=== PATIENT | female | born 1995 | race Caucasian/White ===

== ENCOUNTER 2019-04-23 23:32 | Emergency (ER) | payer OTHER, SELFPAY ==
--- NOTE | ~2019-04-23 | XR_ITS ---
EXAMINATION: XR hand RT min 3V DATE: 04/24/2019 00:05 INDICATION: Posttraumatic right hand pain TECHNIQUE: Posteroanterior, oblique and lateral views of the right hand were obtained. COMPARISON: None. FINDINGS: There is approximately 50 degree palmar/radial angulation of a nondisplaced extra-articular fracture at the neck of the right fifth metacarpal. No other fractures identified. Alignment and joint spaces are normal throughout the remainder of the right hand. Mild soft tissue swelling about the ulnar side of the hand. IMPRESSION: 1. Palmar/radial angulation of a nondisplaced extra articular fracture at the neck of the right fifth metacarpal boxer's fracture . Reviewed, dictated and finalized at location A. UTATIONAL PHYSICIST IMPRESSION: 1. Palmar/radial angulation of a nondisplaced extra articular fracture at the n joanne of the right fifth metacarpal boxer's fracture .
[2019-04-23 23:33] VITALS: BP 117/48; PULSE 94; RESP 16; TEMP 36.5; O2SAT 94
--- NOTE | 2019-04-23 23:45 | ED.UPPEXIN ---
HPI - Extremity Injury (Upper) General Chief Complaint: Extremity Injury, Upper Stated Complaint: right wrist injury Time Seen by Provider: 04/23/19 23:43 Source: patient and RN notes reviewed Mode of arrival: ambulatory Limitations: no limitations History of Present Illness HPI narrative: Pt is a 23 y/o female who presents to the ED with c/o rt hand injury happening 3 days ago. She notes that she became upset and punched a wall with her rt hand 3 days ago. Pt states that she has had pain in her rt hand radiating into her rt wrist ever since. She also reports bruising over the lateral aspect of her rt hand and tingling in her rt 4th and 5th fingers. MD complaint: injury to: right and hand Onset (ago): day(s) (3) Other injuries: none Handedness: right Place: home Context: direct blow Associated symptoms: other (tingling in rt 4th and 5th fingers; bruising on lateral aspect of rt hand) Related Data Allergies Allergy/AdvReac Type Severity Reaction Status Date / Time acetaminophen Allergy Unknown Nausea Verified 04/23/19 23:40 hydrocodone Allergy Unknown Nausea Verified 04/23/19 23:40 metoclopramide Allergy Unknown Nausea and Verified 04/23/19 23:40 Vomiting nortriptyline Allergy Unknown Nausea and Verified 04/23/19 23:40 Vomiting Penicillins Allergy Unknown Nausea Verified 04/23/19 23:40 Sulfa (Sulfonamide Allergy Unknown Nausea and Verified 04/23/19 23:40 Antibiotics) Vomiting Review of Systems Review of Systems: All systems reviewed & are unremarkable except as noted in HPI and below Musculoskeletal: Musculoskeletal: Reports other (rt hand pain radiating into rt wrist) Integumentary/Breasts: Skin/Breast: Reports unusual bruising (bruising on lateral aspect of rt hand) Neurologic: Reports tingling (rt 4th and 5th fingers) PMFSH Past Medical History Medical History Bipolar disorder Immunodeficiency disorder, selective immunoglobulin Surgical History Surgical History Hx of cholecystectomy Social History Social History Smoking status: Never smoker Gender identity (if verbalized by the patient): Female Exam Narrative: Exam Narrative: GENERAL: Well-appearing, well-nourished, and in no acute distress. HEAD: Normocephalic, atraumatic. EXTREMITIES: Swelling and bruising of the right hand most prominently over the ulnar aspect. The fifth metacarpal at the MCP is area of most tenderness, but there is additional tenderness moving into the forearm and at the wrist. Range of motion is limited at the wrist due to pain. Patient is unable to extend or flex digits #5 and 4 due to pain. Digits #5 and 4 also have decreased sharp touch sensation when using an 18-gauge needle. SKIN: Warm, dry, no rash. NEURO: Alert and oriented x3. PSYCH: Normal mood and affect. Course Course Emergency Course: Discussed neuro deficits and injury with Dr. Ricci. Benjamin with follow-up. Patient placed in OCL splint by transportation planning technician. Discharge home. Able to take Percocet without issue. Vital Signs Vital signs: Vital Signs Temperature 97.7 F 04/23/19 23:33 Pulse Rate 94 04/23/19 23:33 Respiratory Rate 16 04/23/19 23:33 Blood Pressure 117/48 L 04/23/19 23:33 Pulse Oximetry 94 04/23/19 23:33 Temperature 97.7 F 04/23/19 23:33 Pulse Rate 94 04/23/19 23:33 Respiratory Rate 16 04/23/19 23:33 Blood Pressure 117/48 L 04/23/19 23:33 Pulse Oximetry 94 04/23/19 23:33 Procedures Orthopedic Splinting/Casting Injury #1: Splinting/Casting Date: 04/24/19 Splinting/Casting Time: 02:10 Side: right Upper Extremity Injury Location: hand Splint: customized in ED OCL: ulnar gutter Pre-Procedure Neuro Vascular Exam: abnormal (decreased sharp touch in digits 4/5) Post-Procedure Neuro Vascular Exam: abnormal (no change) MDM - Ex
[2019-04-24 03:05] VITALS: BP 128/72; PULSE 88; RESP 20; O2SAT 100
== END 2019-04-24 03:07 | disposition home or self-care (01) ==
PROVIDERS: Emergency Provider Emergency Medicine; PCP Nurse Practitioner
DX: S62.366A Nondisplaced fracture of neck of fifth metacarpal bone, right hand, initial encounter for closed fracture (principal); S60.221A Contusion of right hand, initial encounter; W22.09XA Striking against other stationary object, initial encounter
CPT/HCPCS: 29125; 73130; 99284; A4565; A9270

== ENCOUNTER 2019-08-09 15:05 | Emergency (ER) | payer OTHER, SELFPAY ==
--- NOTE | ~2019-08-09 | CT_ITS ---
EXAMINATION: CT abdomen pelvis w con EXAM DATE: 08/09/2019 16:30 INDICATION: Abdominal pain, nausea vomiting diarrhea. Symptoms for days. TECHNIQUE: Spiral CT of the abdomen and pelvis was performed following intravenous injection of 100 m L Omnipaque 350. Axial, coronal and sagittal images were reviewed. The dose-length product (DLP) fo r this examination was 278.56 mGy-cm. The exposure was tailored according to patient size (auto mA e xposure control), and iterative reconstruction (ASIR) was used as additional dose reduction technique . Comparison is made to prior examination from 12/02/2018. FINDINGS: The liver, spleen, adrenal glands and pancreas are unremarkable. There are cholecystectomy clips. Portal and splenic veins are patent. Kidneys enhance symmetrically. There is no hydronephr osis. The uterus is anteverted and morphologically normal. The bladder is collapsed at time of im aging limiting evaluation. Increased number of within normal size pericecal lymph nodes likely react cullen. Probable identification of a normal appendix. No pericecal inflammation. The stomach and small car l are unremarkable. There is colonic fluid. Mildly enhancing colonic mucosa, findings could indicate mild enterocolitis. No free intraperitoneal gas. The heart is normal in size. There are no selene cardial or pleural effusions. Several small basilar granulomas. The bones are unremarkable. IMPRESSION: Findings consistent with enterocolitis. Reviewed, dictated and finalized at location A.
[2019-08-09 15:10] VITALS: BP 122/77; PULSE 105; RESP 19; TEMP 37.3; O2SAT 96
[2019-08-09 15:22] LABS: Basophils Absolute Auto 0.1 K/mm3 (0.0-0.1); Basophils Percent Auto 0.9 % (0.2-1.2); Eosinophils Absolute Auto 0.1 K/mm3 (0-0.3); Eosinophils Percent Auto 1.2 % (0-4.4); Hematocrit 40.1 % (37.0-47.0); Hemoglobin 13.9 g/dL (12.0-15.0); Immature Granulocyte Absolute 0.02 K/mm3 (0.00-0.031); Immature Granulocyte Percent A 0.3 % (0-0.5); Lymphocytes Absolute Auto 1.35 K/mm3 (0.9-3.2); Lymphocytes Percent Auto 23.2 % (18.3-44.2); Mean Corpuscular HGB Conc 34.7 g/dl (32-36); Mean Corpuscular Hemoglobin 29.9 pg (26-34); Mean Corpuscular Volume 86.2 fl (80-100); Mean Platelet Volume 10.4 fl (7.4-10.4); Monocytes Absolute Auto 0.9 K/mm3 (0.1-0.6); Monocytes Percent Auto 15.7 % (2.6-8.5); Neutrophils Absolute Auto 3.4 K/mm3 (1.3-6.7); Neutrophils Percent Auto 58.7 % (45.5-73.1); Platelet Count Result 228 k/mm3 (150-375); Red Blood Count 4.65 M/mm3 (4.2-5.4); Red Cell Distribution Width 13.7 % (11.5-14.5); White Blood Count 5.8 K/mm3 (4.5-10.0)
[2019-08-09 15:36] LABS: Alanine Aminotransferase 19 U/L (4-35); Albumin Level 4.2 g/dL (3.5-5.1); Alkaline Phosphatase 98 U/L (38-126); Aspartate Amino Transferase 31 U/L (14-36); Bilirubin,Total < 0.1 mg/dL (0.2-1.3); Blood Urea Nitrogen 9 mg/dL (7-17); Calcium 8.9 mg/dL (8.4-10.2); Carbon Dioxide 24 mmol/L (22-30); Chloride 103 mmol/L (98-107); Estimated CRCL calculation 111 ml/min; Estimated Glomerular Filt Rate > 60; Glucose 103 mg/dL (65-105); Lipase 19 U/L (23-300); Potassium 3.6 mmol/L (3.4-5.0); Sodium 138 mmol/L (137-145)
[2019-08-09] MEDS: PROCHLORPERAZINE EDISYLATE 10 MG/2 ML VIAL IV PUSH (15:52)
[2019-08-09] MEDS: SODIUM CHLORIDE 0.9% IV 1,000 ML 999 ML IV CONT (15:52)
[2019-08-09 16:06] LABS: Add Urine Microscopic? YES; Appearance Urine Cloudy (Clear); Bacteria Urine Trace /hpf; Bilirubin Urine 1+ (Negative); Blood Urine Negative (Negative); Color Urine Yellow (Yellow); Glucose Urine UA Negative (Negative); Ketones Urine Negative (Negative); Leukocyte Esterase Ur Trace LEU/UL (Negative); Mucus Urine Heavy /lpf; Nitrate Urine Negative (Negative); Protein Urine 2+ mg/dL (Negative); RBC Urine 0-2 /hpf (0-2); Specific Grav Ur 1.029 (1.001-1.035); Squamous Epithelial Cell Urine Many /hpf (Few); Urobilinogen Urine Negative mg/dL (<2.0)
[2019-08-09 16:55] VITALS: BP 145/89; BP 148/93; PULSE 105; PULSE 107
[2019-08-09 16:56] VITALS: BP 140/89; PULSE 104
--- NOTE | 2019-08-09 17:28 | ED.NAVMDI ---
HPI - Nausea/Vomiting/Diarrhea General Chief complaint: Nausea/Vomiting/Diarrhea <WANG Cabrera Last Filed: 08/09/19 20:06> Stated complaint: N/V/D [id number] <WANG Cabrera Last Filed: 08/09/19 20:06> Time Seen by Provider: 08/09/19 15:17 <WANG Cabrera Last Filed: 08/09/19 20:06> Source: patient <WANG Cabrera Last Filed: 08/09/19 20:06> Mode of arrival: ambulatory <WNAG Cabrera Last Filed: 08/09/19 20:06> Limitations: no limitations <WANG Cabrera Last Filed: 08/09/19 20:06> History of Present Illness HPI Narrative: This is a 24 year old female that presents to the ER for abdominal pain, nausea and vomiting x 12 days. Reports history of cyclic vomiting. Reports she recently had to have a stent placed by a GI doctor at [facility]. Reports she was doing okay after that and then 12 days ago symptoms have returned. Reports she has not been able to keep anything down. Also reports watery diarrhea. Reports a history of C. difficile colitis. Reports she takes a daily antibiotic due to immune deficiency. Also reports dysuria. Denies fever. <WANG Cabrera Last Filed: 08/09/19 20:06> Related Data Home medications: Home Medications Medication Instructions Recorded Confirmed fluoxetine 40 mg PO DAILY 08/12/19 08/12/19 lorazepam [Ativan] 1 mg PO TID PRN 08/12/19 08/12/19 pantoprazole 40 mg PO DAILY 08/12/19 08/12/19 quetiapine 200 mg PO BID 08/12/19 08/12/19 quetiapine 400 mg PO HS 08/12/19 08/12/19 <WANG Cabrera Last Filed: 08/09/19 20:06> Allergies/Adverse reactions: Allergies Allergy/AdvReac Type Severity Reaction Status Date / Time acetaminophen Allergy Unknown Nausea Verified 08/12/19 17:54 hydrocodone Allergy Unknown Nausea Verified 08/12/19 17:54 metoclopramide Allergy Unknown Nausea and Verified 08/12/19 17:54 Vomiting nortriptyline Allergy Unknown Nausea and Verified 08/12/19 17:54 Vomiting Penicillins Allergy Unknown Nausea Verified 08/12/19 17:54 Sulfa (Sulfonamide Allergy Unknown Nausea and Verified 08/12/19 17:54 Antibiotics) Vomiting haloperidol [From Haldol] Allergy Swelling Verified 08/12/19 20:54 of Lip/Tongue/Throat levofloxacin [From Levaquin] Allergy Rash Verified 08/13/19 20:30 morphine AdvReac Nausea and Verified 08/12/19 21:02 Vomiting <Mary Jane Roblero PA-C - Last Filed: 08/09/19 20:06> Review of Systems Review of Systems: Narrative: CONSTITUTIONAL: Denies fever GASTROINTESTINAL: Reports abdominal pain, nausea, vomiting, and diarrhea. GENITOURINARY: Reports dysuria. Denies hematuria. <Mary Jane Roblero PA-C - Last Filed: 08/09/19 20:06> All systems reviewed & are unremarkable except as noted in HPI and below <Mary Jane Roblero PA-C - Last Filed: 08/09/19 20:06> PMFSH Social History Social History: Social History Smoking status: Former smoker Alcohol intake: never Substance use: current Substance use type: marijuana Gender identity (if verbalized by the patient): Female Spiritual care concerns: No <Mary Jane Roblero PA-C - Last Filed: 08/09/19 20:06> Exam Narrative: Exam Narrative: GENERAL: Well-appearing, well-nourished, and in no acute distress. HEAD: Normocephalic, atraumatic. EYES: EOMI. CHEST: Clear to auscultation. No respiratory distress. No wheezes rales or rhonchi HEART: Regular rate and rhythm. No murmur heard. Normal peripheral pulses. ABDOMEN: Soft, nondistended, normal active bowel sounds. Mild tenderness to palpation throughout the abdomen, without guarding EXTREMITIES: Normal range of motion. No edema. SKIN: Warm, dry, no rash. NEURO: No focal deficits. Alert and oriented x3. PSYCH: Normal mood and affect <Mary Jane Roblero PA-C - Last Filed: 08/09/19 20:06> Course Consultations Consultation #1: Spoke with GI on-call Dr. Mathis
[2019-08-09] MEDS: ONDANSETRON INJ 4 MG/2 ML VIAL IV PUSH (17:52)
[2019-08-09] MEDS: MORPHINE SULFATE 2 MG/ML INJ IV PUSH (17:52)
[2019-08-09 17:55] VITALS: BP 143/84; PULSE 98; RESP 18; O2SAT 98
[2019-08-09] MEDS: HYDROMORPHONE HCL 1 MG/ML INJ 0.5 MG IV PUSH (19:25)
[2019-08-09 19:51] VITALS: BP 119/80; PULSE 87; RESP 14; TEMP 36.7; O2SAT 98
[2019-08-09 20:21] VITALS: BP 111/76; PULSE 83; RESP 20; TEMP 36.8; O2SAT 98
== END 2019-08-09 20:24 | disposition home or self-care (01) ==
PROVIDERS: Emergency Provider Emergency Medicine; PCP Nurse Practitioner
DX: R11.2 Nausea with vomiting, unspecified (principal); R19.7 Diarrhea, unspecified
CPT/HCPCS: 36415; 74177; 80053; 81001; 81025; 83690; 85025; 87045; 87046; 87324; 87427; 87493; 89055; 96361; 96374; 96375; 99284; J0780; J1170; J2270; J2405; J7030; Q9967

== ENCOUNTER 2019-08-12 17:33 | Inpatient (IN) | payer OTHER, SELFPAY ==
--- NOTE | ~2019-08-12 | CT_ITS ---
EXAMINATION: CT abdomen pelvis w con DATE: 08/12/2019 20:07 INDICATION: Colitis with 2 weeks of nausea, vomiting and diarrhea and right red blood in the stools. TECHNIQUE: Computed tomography (CT) of the abdomen and pelvis was performed with 100 mL Omnipaque-350 intravenous contrast. Automated exposure control and iterative reconstruction technique were employe d. The dose-length product was 255.74 mGy-cm. COMPARISON: 08/09/2019 FINDINGS: Visualized lung bases are clear. Heart size is normal. No pericardial or pleural effusion. Cholecyste ctomy clips at the gallbladder fossa. Liver, spleen, pancreas, bilateral adrenal glands and kidneys a re normal. Interval progression of now extensive mild to moderate colonic wall thickening most promin ent in the ascending and transverse colon consistent with colitis. There is also wall thickening at t he distal ileum. Appendix is normal. No dilated bowel to suggest obstruction. Bladder, anteverted [place] and bilateral adnexa are normal. Small amount of either reactive or physiologic free fluid in the cul-de-sac. No abscess or free intraperitoneal gas. No pathologically enlarged abdominal or pelvic l ymphadenopathy. Bones are unremarkable. IMPRESSION: 1. Worsening colitis and terminal ileitis which could be infectious, inflammatory or less likely isch emic in etiology. Reviewed, dictated and finalized at location A. IMPRESSION: 1. Worsening colitis and terminal ileitis which could be infectious, inflammato ry or less likely ischemic in etiology.
[2019-08-12 17:51] VITALS: BP 121/89; PULSE 122; RESP 25; TEMP 37.9; O2SAT 98
[2019-08-12 18:14] LABS: Basophils Absolute Auto 0.1 K/mm3 (0.0-0.1); Basophils Percent Auto 0.7 % (0.2-1.2); Eosinophils Absolute Auto 0.1 K/mm3 (0-0.3); Eosinophils Percent Auto 0.9 % (0-4.4); Hemoglobin 13.9 g/dL (12.0-15.0); Immature Granulocyte Percent A 0.7 % (0-0.5); Lymphocytes Absolute Auto 2.31 K/mm3 (0.9-3.2); Lymphocytes Percent Auto 15.6 % (18.3-44.2); Mean Corpuscular HGB Conc 33.9 g/dl (32-36); Mean Corpuscular Hemoglobin 29.6 pg (26-34); Mean Corpuscular Volume 87.4 fl (80-100); Mean Platelet Volume 10.3 fl (7.4-10.4); Monocytes Absolute Auto 1.6 K/mm3 (0.1-0.6); Monocytes Percent Auto 10.5 % (2.6-8.5); Neutrophils Absolute Auto 10.6 K/mm3 (1.3-6.7); Neutrophils Percent Auto 71.6 % (45.5-73.1); Platelet Count Result 321 k/mm3 (150-375); Red Blood Count 4.69 M/mm3 (4.2-5.4); Red Cell Distribution Width 13.8 % (11.5-14.5); White Blood Count 14.8 K/mm3 (4.5-10.0)
[2019-08-12 18:28] LABS: Alanine Aminotransferase 16 U/L (4-35); Albumin Level 3.8 g/dL (3.5-5.1); Alkaline Phosphatase 96 U/L (38-126); Aspartate Amino Transferase 22 U/L (14-36); Bilirubin,Total < 0.1 mg/dL (0.2-1.3); Blood Urea Nitrogen 5 mg/dL (7-17); Calcium 8.5 mg/dL (8.4-10.2); Carbon Dioxide 22 mmol/L (22-30); Chloride 105 mmol/L (98-107); Estimated CRCL calculation 108 ml/min; Estimated Glomerular Filt Rate > 60; Glucose 100 mg/dL (65-105); Lipase 24 U/L (23-300); Potassium 3.7 mmol/L (3.4-5.0); Sodium 134 mmol/L (137-145)
--- NOTE | 2019-08-12 19:38 | ED.ABDPAIN ---
HPI - Abdominal Pain General Chief Complaint: Abdominal Pain <Bruno Dinero MD - Last Filed: 08/12/19 19:49> Stated Complaint: bloody diarrhea/ abd pain <Bruno Dinero MD - Last Filed: 08/12/19 19:49> Time Seen by Provider: 08/12/19 18:52 <Bruno Dinero MD - Last Filed: 08/12/19 19:49> Source: patient and family <Bruno Dinero MD - Last Filed: 08/12/19 19:49> Mode of arrival: ambulatory <Bruno Dinero MD - Last Filed: 08/12/19 19:49> Limitations: no limitations <Bruno Dinero MD - Last Filed: 08/12/19 19:49> History of Present Illness HPI narrative: 24-year-old with a history of bipolar disorder, anxiety, selective immune deficiency disorder here with complaints of nausea, vomiting and diarrhea for the last 15 days. Patient states that she was seen here 2 days ago had blood work and CAT scan done which showed enteritis. Patient states that she is unable to keep any fluids down. She also complains of lower abdominal pain and cramping. She states that she had occasional blood in her stool. No previous history of C. difficile. <Bruno Dinero MD - Last Filed: 08/12/19 19:49> MD elicited complaint: abdominal pain <Bruno Dinero MD - Last Filed: 08/12/19 19:49> Onset (ago): day(s) (15) <Bruno Dinero MD - Last Filed: 08/12/19 19:49> Pain Consistency: constant <Bruno Dinero MD - Last Filed: 08/12/19 19:49> Location: RLQ <MD Evan Velez Last Filed: 08/12/19 19:49> Severity: moderate <MD Evan Velez Last Filed: 08/12/19 19:49> Quality: cramping <MD Evan Velez Last Filed: 08/12/19 19:49> Radiation: none <MD Evan Velez Last Filed: 08/12/19 19:49> Exacerbating factors: eating and bowel movement <Bruno Dinero MD - Last Filed: 08/12/19 19:49> Relieving factors: nothing <Bruno Dinero MD - Last Filed: 08/12/19 19:49> Related Data Home Medications: Home Medications Medication Instructions Recorded Confirmed fluoxetine 40 mg PO DAILY 08/12/19 08/12/19 lorazepam [Ativan] 1 mg PO TID PRN 08/12/19 08/12/19 pantoprazole 40 mg PO DAILY 08/12/19 08/12/19 quetiapine 200 mg PO BID 08/12/19 08/12/19 quetiapine 400 mg PO HS 08/12/19 08/12/19 <Bruno Dinero MD - Last Filed: 08/12/19 19:49> Allergies/Adverse Reactions: Allergies Allergy/AdvReac Type Severity Reaction Status Date / Time acetaminophen Allergy Unknown Nausea Verified 08/12/19 17:54 hydrocodone Allergy Unknown Nausea Verified 08/12/19 17:54 metoclopramide Allergy Unknown Nausea and Verified 08/12/19 17:54 Vomiting nortriptyline Allergy Unknown Nausea and Verified 08/12/19 17:54 Vomiting Penicillins Allergy Unknown Nausea Verified 08/12/19 17:54 Sulfa (Sulfonamide Allergy Unknown Nausea and Verified 08/12/19 17:54 Antibiotics) Vomiting haloperidol [From Haldol] Allergy Swelling Verified 08/12/19 20:54 of Lip/Tongue/Throat morphine AdvReac Nausea and Verified 08/12/19 21:02 Vomiting <Bruno Dinero MD - Last Filed: 08/12/19 19:49> Review of Systems Review of Systems: All systems reviewed & are unremarkable except as noted in HPI and below <Bruno Dinero MD - Last Filed: 08/12/19 19:49> Constitutional: Constitutional: Reports no additional constitutional complaints <Bruno Dinero MD - Last Filed: 08/12/19 19:49> Eyes: Eyes: Reports no additional eye complaints <Bruno Dinero MD - Last Filed: 08/12/19 19:49> ENT: Reports system reviewed and no additional complaints, except as documented <Bruno Dinero MD - Last Filed: 08/12/19 19:49> Cardiovascular: Cardiovascular: Reports no additional cardiovascular complaints <Bruno Dinero MD - Last Filed: 08/12/19 19:49> Respiratory: Respiratory: Reports no additional respiratory complaints <Bruno Dinero MD - Last Filed: 08/12/19 19:49> Gastrointestinal: Gastrointestinal: Reports as per HPI, Reports abdominal pain,
[2019-08-12] MEDS: SODIUM CHLORIDE 0.9% IV 1,000 ML 150 ML IV CONT (19:42)
[2019-08-12] MEDS: MORPHINE SULFATE 4 MG/ML INJ IV PUSH (19:43)
--- NOTE | 2019-08-12 20:27 | ED.ABDPAIN ---
HPI - Abdominal Pain General Chief Complaint: Abdominal Pain Stated Complaint: bloody diarrhea/ abd pain Time Seen by Provider: 08/12/19 18:52 Source: patient and family Mode of arrival: ambulatory Limitations: no limitations History of Present Illness MD elicited complaint: abdominal pain Onset (ago): day(s) (15) Pain Consistency: constant Location: RLQ Severity: moderate Quality: cramping Radiation: none Exacerbating factors: eating and bowel movement Relieving factors: nothing Related Data Allergies Allergy/AdvReac Type Severity Reaction Status Date / Time acetaminophen Allergy Unknown Nausea Verified 08/12/19 17:54 hydrocodone Allergy Unknown Nausea Verified 08/12/19 17:54 metoclopramide Allergy Unknown Nausea and Verified 08/12/19 17:54 Vomiting nortriptyline Allergy Unknown Nausea and Verified 08/12/19 17:54 Vomiting Penicillins Allergy Unknown Nausea Verified 08/12/19 17:54 Sulfa (Sulfonamide Allergy Unknown Nausea and Verified 08/12/19 17:54 Antibiotics) Vomiting haloperidol [From Haldol] Allergy Swelling Verified 08/12/19 20:54 of Lip/Tongue/Throat morphine AdvReac Nausea and Verified 08/12/19 21:02 Vomiting PMFSH Past Medical History Medical History Bipolar disorder Immunodeficiency disorder, selective immunoglobulin Social History Social History Smoking status: Never smoker Gender identity (if verbalized by the patient): Female Course Reevaluation(s) Reevaluation #1: Assumed care at 8:30, patient is crying with the pain. She denies history of ulcerative colitis or Crohn's. She says morphine does not work for her. We told her I ordered some fentanyl. She is already gotten her Levaquin. I told her we were going to admit her to the hospital and get a GI specialist to see her. She agrees. : Date: 08/12/19 Time: 20:33 Consultations Consultation #1: Called for GI consult from Dr. Fierro. He recommends Solu-Medrol 40 mg every 8 hours, and antibiotic, and pain medication. He will consult. Date: 08/12/19 Time: 20:34 Consultation #2: Call the hospitalist Dr. Jean agrees with the observation admission for admission. Date: 08/12/19 Time: 20:34 Vital Signs Vital signs: Vital Signs Temperature 100.2 F H 08/12/19 17:51 Pulse Rate 122 H 08/12/19 17:51 Respiratory Rate 25 H 08/12/19 17:51 Blood Pressure 121/89 08/12/19 17:51 Pulse Oximetry 98 08/12/19 17:51 Temperature 98.5 F 08/12/19 20:46 Pulse Rate 108 H 08/12/19 20:46 Respiratory Rate 24 H 08/12/19 20:46 Blood Pressure 140/85 08/12/19 20:46 Pulse Oximetry 98 08/12/19 20:46 MDM - Abdominal Pain Medical Records Attestation: I reviewed the patient's medical records. Lab Data Attestation: I reviewed the patient's lab results. Result diagrams: 08/12/19 18:07 08/12/19 18:07 Labs: Lab Results 08/12/19 08/12/19 08/12/19 Range/Units 18:07 18:07 20:38 WBC 14.8 H (4.5-10.0) K/mm3 RBC 4.69 (4.2-5.4) M/mm3 Hgb 13.9 (12.0-15.0) g/dL Hct 41.0 (37.0-47.0) % MCV 87.4 (80-100) fl MCH 29.6 (26-34) pg MCHC 33.9 (32-36) g/dl RDW 13.8 (11.5-14.5) % Plt Count 321 (150-375) k/mm3 MPV 10.3 (7.4-10.4) fl Immature Gran % (Auto) 0.7 H (0-0.5) % Neut % (Auto) 71.6 (45.5-73.1) % Lymph % (Auto) 15.6 L (18.3-44.2) % [place] % (Auto) 10.5 H (2.6-8.5) % Eos % (Auto) 0.9 (0-4.4) % Baso % (Auto) 0.7 (0.2-1.2) % Lymph # (Auto) 2.31 (0.9-3.2) K/mm3 [place] # (Auto) 1.6 H (0.1-0.6) K/mm3 Eos # (Auto) 0.1 (0-0.3) K/mm3 Baso # (Auto) 0.1 (0.0-0.1) K/mm3 Abs Immat Gran (auto) 0.10 H (0.00-0.031) K/mm3 Absolute Neuts (auto) 10.6 H (1.3-6.7) K/mm3 Absolute Nucleated RBC 0.0 (0.0-0.012) K/mm3 Nucleated RBC % 0.0 (0.0-0.2) % Sodium 134 L (137-145) mmol/L [place]
[2019-08-12] MEDS: PROMETHAZINE HCL 25 MG TABLET PO (20:38)
[2019-08-12] MEDS: methylPREDNISolone SOD SUCC 40 MG VIAL IV PUSH (20:39)
[2019-08-12 20:46] VITALS: BP 140/85; PULSE 108; RESP 24; TEMP 36.9; O2SAT 98
[2019-08-12 20:47] LABS: Add Urine Microscopic? YES; Appearance Urine Cloudy (Clear); Bacteria Urine Trace /hpf; Bilirubin Urine 1+ (Negative); Blood Urine Negative (Negative); Color Urine Yellow (Yellow); Glucose Urine UA Negative (Negative); Ketones Urine Trace mg/dL (Negative); Leukocyte Esterase Ur Negative LEU/UL (Negative); Mucus Urine Heavy /lpf; Nitrate Urine Negative (Negative); Protein Urine 1+ mg/dL (Negative); RBC Urine 0-2 /hpf (0-2); Specific Grav Ur 1.027 (1.001-1.035); Squamous Epithelial Cell Urine Many /hpf (Few); WBC Urine 0-3 /hpf
--- NOTE | 2019-08-12 21:04 | PC.NURSE ---
Patient reports itching and hives to left arm and neck after starting levaquin. Infusion stopped. EDP aware and order for Benadryl 50 mg IVP was obtained.
[2019-08-12] MEDS: SODIUM CHLORIDE 0.9% IV 1,000 ML 999 ML IV CONT (21:05)
[2019-08-12 21:25] VITALS: BP 130/84; PULSE 101; RESP 26; TEMP 36.5; O2SAT 99
[2019-08-12 22:12] VITALS: BP 137/66; PULSE 104; RESP 21; TEMP 36.9; O2SAT 98
--- NOTE | 2019-08-12 22:47 | ADMGEN ---
This patient, Regino Calvillo, was admitted to 2 Medical Room 240-01. Patient/family oriented to hospital policies and general routines including ID bracelet, bed and alarms, visiting hours, pain management, procedures, bathroom and other care routines, personal items, smoking policy, room service/diet, and visiting hours. Valuables list has been completed. Information on how to activate the Rapid Response Team has been discussed. Patient/Family are encouraged to report perceived risks to care and to ask questions if they do not understand what they are told or what they should do.
[2019-08-12 22:59] VITALS: BP 133/81; PULSE 101; RESP 22; TEMP 36.7; O2SAT 97; BMI 22.9
[2019-08-12] MEDS: DEXTROSE 5%/0.9% SOD CHL 1,000 ML 100 ML IV CONT (23:10)
[2019-08-12] MEDS: QUEtiapine FUMARATE 100 MG TABLET 400 MG PO (23:51)
[2019-08-12] MEDS: HYDROMORPHONE HCL 1 MG/ML INJ IV PUSH (23:52)
--- NOTE | 2019-08-12 23:57 | PM.IMHP ---
H&P: HPI History of Present Illness Chief complaint: colitis Narrative: This is a 24 year old female who presented to the hospital for a second visit this week secondary to diffuse lower abdominal pain and bloody diarrhea. The patient has a history of ongoing abdominal issues for the past four years and is known to follow up with various different GI specialists. She has most recently had bloody diarrhea and diffuse lower abdominal pain with associated nausea and vomiting for the past 15 days. She describes having multiple episodes >10 of bloody diarrhea every day and multiple episodes of vomiting. Her symptoms are exacerbated with oral intake. The patient does have a history of IBS and has most recently had a colonoscopy 1 year ago which only demonstrated enteritis and an enlarged colon. She is known to chronically be on Macrobid for UTIs and was last checked a few days ago in our ER for c. diff colitis which resulted negative. The patient was evaluated tonight and CT abd/pelvis demonstrated worsening colitis and terminal ileitis. GI specialist was consulted by ER provider who has instructed that the patient be started on IV steroids, antibiotics and be admitted to the hospital for further care. Review of Systems Review of Systems: All systems reviewed & are unremarkable except as noted in HPI and below PMFSH Past Medical History Medical History Abdominal pain Bipolar disorder Bloody diarrhea Depression IBS (irritable bowel syndrome) Immunodeficiency disorder, selective immunoglobulin Marijuana abuse Nausea and vomiting in adult Surgical History Surgical History Hx of cholecystectomy Family History Family History Father Acute myocardial infarction Mother Emphysema lung Chronic obstructive pulmonary disease Bipolar 1 disorder Sibling Selective immunoglobulin deficiency 2 sisters and a brother have it and all three of her children have it. Social History Social History Smoking status: Former smoker Alcohol intake: never Substance use: current Substance use type: marijuana Gender identity (if verbalized by the patient): Female Spiritual care concerns: No Meds Home Medications and Allergies Home Medications Medication Instructions Recorded Confirmed Type fluoxetine 40 mg PO DAILY 08/12/19 08/12/19 History lorazepam [Ativan] 1 mg PO TID PRN 08/12/19 08/12/19 History pantoprazole 40 mg PO DAILY 08/12/19 08/12/19 History quetiapine 200 mg PO BID 08/12/19 08/12/19 History quetiapine 400 mg PO HS 08/12/19 08/12/19 History Allergies Allergy/AdvReac Type Severity Reaction Status Date / Time acetaminophen Allergy Unknown Nausea Verified 08/12/19 17:54 hydrocodone Allergy Unknown Nausea Verified 08/12/19 17:54 metoclopramide Allergy Unknown Nausea and Verified 08/12/19 17:54 Vomiting nortriptyline Allergy Unknown Nausea and Verified 08/12/19 17:54 Vomiting Penicillins Allergy Unknown Nausea Verified 08/12/19 17:54 Sulfa (Sulfonamide Allergy Unknown Nausea and Verified 08/12/19 17:54 Antibiotics) Vomiting haloperidol [From Haldol] Allergy Swelling Verified 08/12/19 20:54 of Lip/Tongue/Throat morphine AdvReac Nausea and Verified 08/12/19 21:02 Vomiting Vital Signs Vital Signs - 24 hr 08/12/19 17:51 08/12/19 20:46 08/12/19 21:25 Temperature 37.9 C H 36.9 C 36.5 C Pulse Rate 122 H 108 H 101 H Respiratory Rate 25 H 24 H 26 H Blood Pressure 121/89 140/85 130/84 Pulse Oximetry 98 98 99 08/12/19 22:12 08/12/19 22:59 Temperature 36.9 C 36.7 C Pulse Rate 104 H 101 H Respiratory Rate 21 H 22 H Blood Pressure 137/66 133/81 Pulse Oximetry 98 97 Exam Const: General: cooperative, alert, awake, in distress moderate and ill appearing Nutriti
[2019-08-13] MEDS: HYDROMORPHONE HCL 1 MG/ML INJ IV PUSH ×7 (02:54→21:22)
[2019-08-13] MEDS: LORAZEPAM INJ 2 MG/ML VIAL 0.5 MG IV PUSH ×4 (03:37→22:38)
[2019-08-13 04:51] LABS: Basophils Percent Auto 0.1 % (0.2-1.2); Hematocrit 35.4 % (37.0-47.0); Immature Granulocyte Absolute 0.06 K/mm3 (0.00-0.031); Immature Granulocyte Percent A 0.7 % (0-0.5); Lymphocytes Absolute Auto 1.21 K/mm3 (0.9-3.2); Lymphocytes Percent Auto 14.3 % (18.3-44.2); Mean Corpuscular HGB Conc 33.9 g/dl (32-36); Mean Corpuscular Hemoglobin 29.3 pg (26-34); Mean Corpuscular Volume 86.6 fl (80-100); Mean Platelet Volume 9.9 fl (7.4-10.4); Monocytes Absolute Auto 0.4 K/mm3 (0.1-0.6); Monocytes Percent Auto 4.6 % (2.6-8.5); Neutrophils Absolute Auto 6.8 K/mm3 (1.3-6.7); Neutrophils Percent Auto 80.3 % (45.5-73.1); Platelet Count Result 276 k/mm3 (150-375); Red Blood Count 4.09 M/mm3 (4.2-5.4); Red Cell Distribution Width 13.4 % (11.5-14.5); White Blood Count 8.5 K/mm3 (4.5-10.0)
[2019-08-13 05:09] LABS: Blood Urea Nitrogen 3 mg/dL (7-17); Calcium 7.7 mg/dL (8.4-10.2); Carbon Dioxide 23 mmol/L (22-30); Chloride 108 mmol/L (98-107); Estimated CRCL calculation 162 ml/min; Estimated Glomerular Filt Rate > 60; Glucose 129 mg/dL (65-105); Magnesium 1.7 mg/dL (1.6-2.3); Potassium 3.8 mmol/L (3.4-5.0); Sodium 136 mmol/L (137-145)
[2019-08-13 06:00] VITALS: BP 123/68; PULSE 91; RESP 18; TEMP 36.8; O2SAT 99
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
[2019-08-13] MEDS: methylPREDNISolone SOD SUCC 40 MG VIAL IV PUSH ×3 (09:09→18:09)
[2019-08-13] MEDS: DEXTROSE 5%/0.9% SOD CHL 1,000 ML 100 ML IV CONT ×2 (09:09→20:16)
[2019-08-13] MEDS: QUEtiapine FUMARATE 100 MG TABLET 200 MG PO ×2 (09:10→12:04)
--- NOTE | 2019-08-13 09:22 | PC.NURSE ---
Patient has been seen by housekeeping assistant and Thao BUTT. Patient has calmed down and is now cooperatively answering questions. Received pain meds and Ativan as ordered. NPO status has been explained to her further by PA and also by housekeeping assistant. Will continue to monitor.
--- NOTE | 2019-08-13 09:32 | PM.IMPN ---
Progress Note: A&P Assessment and Plan (1) Colitis: Code(s): K52.9 - Noninfective gastroenteritis and colitis, unspecified Status: Acute Assessment and Plan: CT abd/pelvis revealed interval progression of extensive colonic wall thickening in the ascending and transverse colon as well as at the distal ileum. The patient reports that her last colonoscopy was 1 year ago. She has a hx of C. diff infections in the past. C. diff testing was negative 08/09/19. Her sx progressed despite PO metronidazole which she was prescribed 08/08. Campylobacter and salmonella/shigella are pending. E. coli 0157 was negative. GI is on board. Will continue IV levaquin and add IV flagyl. Will continue IV methylprednisolone. Will continue bowel rest with NPO status for now. Conitnue IV antiemetics and analgesics PRN. Await further GI recommendations. (2) Leukocytosis: Qualifiers: Leukocytosis type: unspecified Qualified Code(s): D72.829 - Elevated white blood cell count, unspecified Code(s): D72.829 - Elevated white blood cell count, unspecified Status: Acute Assessment and Plan: WBC was 14.8 at admission. Leukocytosis is likely to colitis. Leykocytosis has resolved today with WBC 8.5. (3) Bipolar disorder: Qualifiers: Active/Remission status: remission status unspecified Qualified Code(s): F31.9 - Bipolar disorder, unspecified Code(s): F31.9 - Bipolar disorder, unspecified Status: Chronic Assessment and Plan: Chronic. Continue seroquel. (4) Depression: Qualifiers: Depression Type: unspecified Qualified Code(s): F32.9 - Major depressive disorder, single episode, unspecified Code(s): F32.9 - Major depressive disorder, single episode, unspecified Status: Chronic Assessment and Plan: Chronic. Resume fluoxetine when appropriate. Subjective Date/time seen: 08/13/19 09:32 Interval history: Mrs. Calvillo is seen and examined at bedside in follow-up for colitis. She reports a long hx of GI issues including hx of C. diff colitis, hx of temporary self-expandable stent placement due to concern for possible pyloric stenosis, gastritis. She is established with Dr. White at [facility]. She reports a hx of IBD including Chron's and UC. She reports persistent lower abdominal pain today. She reports 3 episodes of diarrhea with hematochezia so far today. She denies vomiting including coffee ground emesis. She endorses nausea. She was upset earlier today regarding her NPO status. I provided an explanation for this and was able to provide reassurance and she has calmed down. She denies subjective fever and chills. She also describes tenesmus. Review of Systems Review of Systems: All systems reviewed & are unremarkable except as noted in HPI and below Exam Narrative: Exam Narrative: General: Well-developed, cooperative, and appears to be in no acute distress. HEENT: Normocephalic and atraumatic. Conjunctivae and lids normal. PERRL. EOMI. Ears: External ears normal without lesions or deformity. Nose: External nose normal without nasal discharge. Mouth and Throat: Mucous membranes moist. Posterior pharynx without erythema or exudate. Neck: Supple without lymphadenopathy or masses. Cardiac: Regular rate and rhythm. S1 and S2 normal. Lungs: Effort normal. Lungs are clear to auscultation bilaterally. Abdomen: Abdomen is distended but soft. Abdomen is tender in the RLQ and LLQ. No guarding or rebound. No organomegaly. Extremities: No lower extremity edema. Lashay negative. Palpable DP and PT bilaterally. Neurological: Alert. No focal neurological deficits noted. Speech is clear. Skin: Warm and dry without lesions or eruptions. Psychiatric: Judgment and insight intact. Mood labile and affect irritable. Objective Data Vital Signs Vital Signs: Vital Signs - 24 hr 08/12/19 17:51 08/12/19 20:46 08/12/19 21:25 Temperature 100.
--- NOTE | 2019-08-13 10:12 | PC.NURSE ---
Patient crying and complaining of nausea. Called Thao BUTT and left voice message requesting something for nausea. Offered patient a cold washcloth for forehead and called housekeeping and requested a fan for the room.
[2019-08-13] MEDS: ONDANSETRON INJ 4 MG/2 ML VIAL IV PUSH ×2 (10:27→18:10)
--- NOTE | 2019-08-13 10:55 | PC.NURSE ---
Patient now resting quietly with fan in room and washcloth to forehead.
[2019-08-13] MEDS: metroNIDAZOLE 500 MG/ISO 100ML 500 MG/100 ML BAG 100 MG IVPB ×2 (11:27→21:20)
--- NOTE | 2019-08-13 12:33 | WPDGICN ---
Assessment and Plan Assessment and plan (1) Colitis: Code(s): K52.9 - Noninfective gastroenteritis and colitis, unspecified Status: Acute Assessment and Plan: CT scan showed diffuse colitis and ileitis will get old records of colonoscopy and EGD (? stents placed but removed afterward) continue medical therapy with antibiotics, started on iv steroids for possible IBD (will do a colonoscopy Thursday with EGD) get inflammatory markers pending stool samples, need rule out infectious etiology including c diff (2) Bloody diarrhea: Code(s): R19.7 - Diarrhea, unspecified Status: Acute (3) Nausea and vomiting in adult: Code(s): R11.2 - Nausea with vomiting, unspecified Status: Acute Assessment and Plan: antiemetics prn, ok to have CL diet she was told that could have been related to marihuana but she is hardly using now (4) Bipolar disorder: Qualifiers: Active/Remission status: remission status unspecified Qualified Code(s): F31.9 - Bipolar disorder, unspecified Code(s): F31.9 - Bipolar disorder, unspecified Status: Chronic (5) Abdominal pain: Qualifiers: Abdominal location: unspecified location Qualified Code(s): R10.9 - Unspecified abdominal pain Code(s): R10.9 - Unspecified abdominal pain Status: Acute GI Consult Note Consult date/time: 08/13/19 12:33 Reason for consult: abdominal pain, colitis, diarrhea HPI: Regino Calvillo is a 24 year old female with history of bipolar on meds, almost 4 years of abdominal pain with nausea and vomiting for which she has been evaluated by other GI specialist. She says that had colonoscopy about 1 year ago that showed enlarged colon , earlier this year at [facility] had EGD with stent of pylorus because persistent nausea. She was told that chronic nausea probably was related to use of marihuana which she hardly is using anymore but still is sick. She has been sick since had her GB removed 2015. She is here after her second visit this week with diffuse lower abdominal pain and bloody diarrhea up o 10 times a day, nausea with vomiting that has been going on for almost 2 weeks. She also uses Macrobid for UTIs. Repeat CT abd/pelvis demonstrated worsening colitis and terminal ileitis (had CT scan just few days ago). She was started on antibiotics and also given iv solumedrol. Stool samples obtained. Still with pain. Review of Systems Constitutional: Constitutional: Reports chills, Denies headache(s) and Denies weakness Eyes: Eyes: Denies blurry vision ENT: Reports Normal hearing present, Denies headache(s) and Denies neck pain Cardiovascular: Cardiovascular: Denies chest pain and Denies dyspnea Respiratory: Respiratory: Denies dyspnea Gastrointestinal: Gastrointestinal: Reports abdominal pain, Reports hematochezia, Reports diarrhea, Reports nausea and Reports vomiting Genitourinary: Genitourinary: Denies dysuria Musculoskeletal: Musculoskeletal: Denies neck pain Integumentary/Breasts: Skin/Breast: Denies dry skin Neurologic: Reports Normal hearing present, Denies headache(s) and Denies weakness Psychiatric: Psychiatric: Reports anxiety Comments: bipolar disorder Endocrine: Endocrine: Denies change in body appearance Hematologic/Lymphatic: Hematologic/Lymphatic: Denies easy bleeding Allergic/Immunologic: Allergic/Immunologic: Denies urticaria PMFSH Past Medical History Medical History Bipolar disorder Depression IBS (irritable bowel syndrome) Immunodeficiency disorder, selective immunoglobulin Surgical History Surgical History Hx of cholecystectomy Family History Family History Father Acute myocardial infarction Mother Emphysema lung Chronic obstructive pulmonary disease Bipolar 1 disorder Sibling Selective immunog
[2019-08-13 14:00] VITALS: BP 109/55; PULSE 76; RESP 18; TEMP 35.8; O2SAT 99
--- NOTE | 2019-08-13 18:40 | PC.NURSE ---
Pt requested to visit with her family outside before they leave for a trip to [place]. She states her f--ing grandma . I asked her to tell her to come to the front entrance and I would take her down in a wheelchair to visit with them. She answered very angrily, I just want to visit my family without you up my ass. I'm not a f---ing baby. I'm a [age] year-old. I don't need a f---ing payroll lead. I told her that everyone who comes into the hospital or exits the hospital requires a screening. Since I would be taking her in and out, this would permit her to go out and come back out. She said I don't need a merchant tailor. I just want to see my family without being treated like a prisoner. I told her you are not being forced to stay here. You are free to leave any time you wish. I will take you down to see your family at the front entrance if you want me to. If you don't want me to I won't take you. I am available until 7:30 when I get off. Pt stated, I hope every person in this place loses the closest person to them. And she promptly hung up the phone.
--- NOTE | 2019-08-13 20:18 | PM.EVENT ---
Event Note Event Note Event Note: Called to bedside to evaluate this 24 year old female who is being treated for nausea, vomiting and colitis who today has become very upset. The patient just found out that her grandmother and was very upset that she wasn't allowed to leave the hospital and go see her family. She is also very upset that she has to wait until Thursday to get an EGD performed. She was started on a clear liquid diet per Gastroenterology and nursing reports that the patient has had multiple episodes of vomiting in the room. On my encounter with the patient she is verbally abusive and yelling at me. She states that we are doing nothing for her and that she is demanding food and drink despite her nausea and vomiting. The patient clearly is not listening to any reason when I attempted to explain our current treatment plan and continued to try to dictate how her medical treatment should be given to her. At this time we will make the patient NPO for the rest of the night as she continues to have nausea and vomiting. I suspect based on what I am seeing that the patient may very well be withdrawing from some unknown substance or drug. We will also obtain a urine drug screen. We will continue close monitoring to help protect the patient from herself.
--- NOTE | 2019-08-13 20:50 | PC.NURSE ---
Patient disconnected her IV. I went in to assess patient and she is crying and shaking. Her whole body is trembling. I offered her night time dose of Seroquel and she yelled, I want it when its due and thats at nine o' clock! I explained to her that would be fine. She then starts yelling, I would rather be than be here! I said, I am sorry you feel that way. I asked her if she had thoughts of harming her self and she said, NO, Real professional to say that. I explained to her that I care about her well being and asked her what could I do to make her stay better. She again said, I would rather be than be here I went on to tell her she did not have to stay here if she did not want to. I explained to her she could sign out AMA. She yelled, Real Professional for you to say that! I told her I am sorry she is so upset and I want to make things better for her. She said bring my pain meds in at nine. She is very angry and agitated. Will monitor closely. She also refuses to give us a urine sample. Notified nursing fish bait processing supervisor.
[2019-08-13] MEDS: QUEtiapine FUMARATE 100 MG TABLET 400 MG PO (21:19)
--- NOTE | 2019-08-13 21:59 | PC.NURSE ---
Pt is angry. She is cursing. She said, I would like to fucking see you go 24hrs without food! She also said, I wouldn't bring my fucking dog to this place! She has thrown kleenex and paper towels on the floor.
[2019-08-13 22:00] VITALS: BP 143/81; PULSE 110; RESP 20; TEMP 36; O2SAT 95
--- NOTE | 2019-08-13 22:44 | PC.NURSE ---
Pt is screaming at me because we are not giving her anything to eat. I have explained to her due to her pain and nausea eating would make her feel worse. She said we are uncaring and we are starving her. She is trembling, poor eye contact. Very agitated. Ativan has been given as ordered.
--- NOTE | 2019-08-13 22:49 | PC.NURSE ---
She is on the phone with her screaming and crying. She is yelling at him and is cursing. Shut her door. She is very angry and belligerent
[2019-08-14] MEDS: HYDROMORPHONE HCL 1 MG/ML INJ IV PUSH ×4 (02:37→23:07)
[2019-08-14] MEDS: metroNIDAZOLE 500 MG/ISO 100ML 500 MG/100 ML BAG 100 MG IVPB ×3 (05:44→21:46)
[2019-08-14] MEDS: DEXTROSE 5%/0.9% SOD CHL 1,000 ML 100 ML IV CONT ×2 (05:45→18:02)
[2019-08-14] MEDS: LORAZEPAM INJ 2 MG/ML VIAL 0.5 MG IV PUSH ×3 (05:46→21:47)
[2019-08-14 06:00] VITALS: BP 130/81; PULSE 84; RESP 20; TEMP 36.2; O2SAT 100
[2019-08-14 08:00] VITALS: BP 128/76; PULSE 80; RESP 22; TEMP 36.6; O2SAT 99
[2019-08-14 08:18] LABS: Hematocrit 32.8 % (37.0-47.0); Hemoglobin 11.3 g/dL (12.0-15.0); Mean Corpuscular HGB Conc 34.5 g/dl (32-36); Mean Corpuscular Hemoglobin 29.6 pg (26-34); Mean Corpuscular Volume 85.9 fl (80-100); Platelet Count Result 278 k/mm3 (150-375); Red Blood Count 3.82 M/mm3 (4.2-5.4); Red Cell Distribution Width 13.5 % (11.5-14.5); White Blood Count 8.1 K/mm3 (4.5-10.0)
[2019-08-14 08:27] LABS: Blood Urea Nitrogen 2 mg/dL (7-17); CRP 1.2 mg/dL (<1.0); Calcium 7.9 mg/dL (8.4-10.2); Carbon Dioxide 26 mmol/L (22-30); Chloride 107 mmol/L (98-107); Estimated CRCL calculation 162 ml/min; Estimated Glomerular Filt Rate > 60; Glucose 96 mg/dL (65-105); Magnesium 1.9 mg/dL (1.6-2.3); Potassium 3.1 mmol/L (3.4-5.0); Sodium 136 mmol/L (137-145)
--- NOTE | 2019-08-14 08:40 | PM.IMPN ---
Progress Note: A&P Assessment and Plan (1) Colitis: Code(s): K52.9 - Noninfective gastroenteritis and colitis, unspecified Status: Acute Assessment and Plan: CT abd/pelvis revealed interval progression of extensive colonic wall thickening in the ascending and transverse colon as well as at the distal ileum. The patient reports that her last colonoscopy was 1 year ago. She has a hx of C. diff infections in the past. C. diff testing was negative 08/09/19. Her sx progressed despite PO metronidazole which she was prescribed 08/08. Campylobacter and salmonella/shigella are pending. E. coli 0157 was negative. GI is on board. Will continue IV levaquin and add IV flagyl. Will continue IV methylprednisolone. C. diff testing was repeated and is pending. CRP is 1.2 and ESR is pending. Continue IV antiemetics and analgesics PRN. GI is on board and recommendations are greatly appreciated. Plan for EGD and colonoscopy tomorrow. She can have a clear liquid diet today as tolerated. NPO at midnight for colonoscopy. (2) Leukocytosis: Qualifiers: Leukocytosis type: unspecified Qualified Code(s): D72.829 - Elevated white blood cell count, unspecified Code(s): D72.829 - Elevated white blood cell count, unspecified Status: Resolved Assessment and Plan: WBC was 14.8 at admission. Leukocytosis is likely to colitis. Leykocytosis has resolved and WBC is 8.1 today. (3) Bipolar disorder: Qualifiers: Active/Remission status: remission status unspecified Qualified Code(s): F31.9 - Bipolar disorder, unspecified Code(s): F31.9 - Bipolar disorder, unspecified Status: Chronic Assessment and Plan: Chronic. Continue seroquel. (4) Depression: Qualifiers: Depression Type: unspecified Qualified Code(s): F32.9 - Major depressive disorder, single episode, unspecified Code(s): F32.9 - Major depressive disorder, single episode, unspecified Status: Chronic Assessment and Plan: Chronic. Resume fluoxetine when appropriate. (5) Marijuana abuse: Code(s): F12.10 - Cannabis abuse, uncomplicated Status: Chronic Assessment and Plan: Continue to encourage marijuana cessation. This may be contributing to her nausea and vomiting. (6) Nausea and vomiting in adult: Code(s): R11.2 - Nausea with vomiting, unspecified Status: Acute Assessment and Plan: She reports sx are improving. Continue antiemetics PRN. Will advance to clear liquid diet today. (7) Hypokalemia: Code(s): E87.6 - Hypokalemia Status: Acute Assessment and Plan: Potassium was 3.1. Will replace with 40mEq PO potassium. Will continue to monitor. (8) DVT prophylaxis: Code(s): Z29.9 - Encounter for prophylactic measures, unspecified Status: Acute Assessment and Plan: Will add lovenox SQ as pt is not wearing SCDs. Subjective Date/time seen: 08/14/19 08:40 Interval history: Mrs. Calvillo is seen and examined at bedside in follow-up for colitis. Per chart review and nursing reports, she was very upset overnight and was being verbally abusive to other staff. She also had nausea and vomiting yesterday. Today, she is calm and reports that her vomiting has resolved. She notes nausea is improving. She reports persistent lower abdominal pain. She states that her stools are less frequent today. She denies dizziness, lightheadedness, and headaches. She denies chest pain and dyspnea. She is requesting to try ice chips. She has no other concerns at this time. Review of Systems Review of Systems: All systems reviewed & are unremarkable except as noted in HPI and below Exam Narrative: Exam Narrative: General: Well-developed 24 y.o. female who is lying supine in bed with the cover over her head resting. She is examined alone. She is in no acute distress and is non-toxic in appearance. She is cooperative.
[2019-08-14] MEDS: methylPREDNISolone SOD SUCC 40 MG VIAL IV PUSH ×3 (08:53→18:03)
[2019-08-14] MEDS: QUEtiapine FUMARATE 100 MG TABLET 200 MG PO ×2 (08:53→11:14)
[2019-08-14 09:08] LABS: Erythrocyte Sedimentation Rate 23 mm/hr (0-20)
[2019-08-14 09:50] LABS: Amphetamine Screen Urine Negative (Negative); Barbiturate Screen Urine Negative (Negative); Benzodiazepines Screen Urine Negative (Negative); Cannabinoid Screen Urine Positive (Negative); Cocaine Screen Urine Negative (Negative); Methadone Screen Urine Negative (Negative); Opiate Screen Urine Positive (Negative); Phencyclidine Screen Urine Negative (Negative)
[2019-08-14] MEDS: HYDROMORPHONE HCL 1 MG/ML INJ 0.5 MG IV PUSH ×2 (10:00→13:47)
--- NOTE | 2019-08-14 10:00 | PC.NURSE ---
Patient requesting pain medication this morning at 0900 while doing my morning assessment. Pain medications are ordered Q3HR PRN. I discussed with patient that her pain medication was not due again until 0958 and I would be back then to administer it. I asked her if she felt like she would be able to wait another hour for it and she responded at that time yes I'm just hurting right now because Thao pushed on my stomach. Patient was calm and cooperative this morning for my assessment and medications and answered all questions appropriately. Went into patients room at 1000 to administer her PRN Dilaudid as previously discussed with her. Upon entering her room, she was crying laying in the bed stating she was having an anxiety attack and needed some further medication for it. However, her Ativan is ordered every 8 hours and she is not due yet for it. I discussed this with her and stated I would call Thao and see if there was anything further we could do for her anxiety. Patient was agreeable to this. I walked out of her room and called Thao. Thao stated that there was nothing further we could do and that she would need to wait for her next dose of Ativan and to have her concentrate on deep breathing. Discussed with the patient what Thao had recommended and said when I called her. As soon as I said this patient responded Get the fuck out of my room. None of you here fucking care about me. Its all about your fucking self. I tried reasoning with patient stating that I do care and this is why I called Thao to see if there was anything further we could do. However, at this time Thao was not willing to order anything else since she had gotten her Ativan as prescribed. Patient belligerent in the room telling me to get the fuck out right now and don't fucking come back. Called to special agent in chargeJanice. Cornell montaño was then called.
--- NOTE | 2019-08-14 10:50 | PC.NURSE ---
Standing at doorway of patients room during code purple. Patient discussing at bedside with care coordination and I heard her say they need their fucking teeth knocked out. They were all out there making ticktock videos. Isn't that great hospital care? Staff standing outside of patients room for code purple. No staff members have their phones out at this time.
[2019-08-14] MEDS: ENOXAPARIN 40 MG/0.4 ML SYRINGE SUB-Q (10:57)
[2019-08-14] MEDS: PANTOPRAZOLE SODIUM IV 40 MG VIAL IV PUSH (10:59)
--- NOTE | 2019-08-14 11:06 | PC.NURSE ---
client coordinator at bedside discussing with patient. Went to check in on them and patient is calmed down and agreeable to care from me at this time. She has now agreed to receiving Lovenox subq and Protonix IVP. However, she is requesting the potassium to be given through her IV instead of PO because it will make her nauseated. I will discuss this with Thao. Will continue to monitor patient.
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
--- NOTE | 2019-08-14 12:01 | PC.NURSE ---
Patient stating to another RN that yeah my nurse is giving me the medication but it doesn't even feel like I got anything so who knows what she's doing with it. I have administered her medications as ordered every time she has received them.
--- NOTE | 2019-08-14 12:04 | PC.NURSE ---
Spoke with Thao in regards to patients potassium. Patient is requesting IV Potassium due to the PO making her nauseated. Thao at this time has stated that patient should take it orally. We can change it to the liquid if she prefers that but not to IVPB.
--- NOTE | 2019-08-14 12:16 | PC.NURSE ---
At the bedside discussing patient pill bottle with patient, household appliances salesperson, and supercharge repair supervisor. Discussed with her that it is hospital policy we lock up any medications at the bedside. I have offered to use security bag for medications so that medications will be securely locked up and no one will be able to tamper with the bag. However, she is rolling her eyes at me, yelling at me to just lock the damn thing up. Locked the medications up into the locker (without security bag). cold storage supervisor, supercharge repair supervisor present.
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
--- NOTE | 2019-08-14 13:10 | WPDGIPROGNO ---
Progress Note: A&P Assessment and Plan (1) Nausea and vomiting in adult: Code(s): R11.2 - Nausea with vomiting, unspecified Status: Acute Assessment and Plan: could be related to cyclic vomiting- admits using marihuana but we will proceed with EGD tomorrow (apparently ? stent few months ago- get records) (2) Bloody diarrhea: Code(s): R19.7 - Diarrhea, unspecified Status: Acute Assessment and Plan: with abnormal imaging c/w colitis and ileitis, stool sample negative thus far mild elevated esr and crp colonoscopy tomorrow, assess if IBD (3) Colitis: Code(s): K52.9 - Noninfective gastroenteritis and colitis, unspecified Status: Acute (4) Abdominal pain: Qualifiers: Abdominal location: unspecified location Qualified Code(s): R10.9 - Unspecified abdominal pain Code(s): R10.9 - Unspecified abdominal pain Status: Acute (5) Marijuana abuse: Code(s): F12.10 - Cannabis abuse, uncomplicated Status: Chronic Assessment and Plan: positive Utox (6) Hypokalemia: Code(s): E87.6 - Hypokalemia Status: Acute Subjective Date/time seen: 08/14/19 13:10 Interval history: less diarrhea but still with abdominal discomfort and nausea. Review of Systems Review of Systems: All systems reviewed & are unremarkable except as noted in HPI and below Exam Const: General: comfortable and no acute distress HENMT: General nose exam: Normal nares present Eyes: General: appearance normal, both eyes and all related structures Neck: Neck: no JVD Resp: Auscultation: clear to auscultation bilaterally Cardio: Rate: regular rate Rhythm: regular rhythm GI: Inspection: non-distended GI Palp: Yes Soft to palpation Skin: General skin exam: normal color Neuro: General: gait normal Speech: normal speech Extrem: General: normal to inspection Psych: Mental Status: mental status grossly normal Objective Data Vital Signs Vital Signs: Vital Signs - 24 hr 08/13/19 14:00 08/13/19 22:00 08/14/19 06:00 Temperature 96.4 F L 96.8 F L 97.1 F L Pulse Rate 76 110 H 84 Respiratory Rate 18 20 20 Blood Pressure 109/55 L 143/81 H 130/81 Pulse Oximetry 99 95 100 08/14/19 08:00 Temperature 97.8 F Pulse Rate 80 Respiratory Rate 22 H Blood Pressure 128/76 Pulse Oximetry 99 Intake/Output Intake/Output: Intake & Output 08/11/19 08/12/19 08/13/19 08/14/19 23:59 23:59 23:59 23:59 Intake Total 2016 2250 1580 Output Total 820 Balance 2017 1430 1580 Meds/Results Medications: Active Medications Generic Name Dose Route Start Last Admin Trade Name Freq PRN Reason Stop Dose Admin Bisacodyl 20 mg 08/14/19 18:00 Dulcolax Tab PO 08/14/19 18:01 ONCE ONE Enoxaparin Sodium 40 mg 08/14/19 09:00 08/14/19 10:57 Lovenox SUB-Q 40 mg DAILY CHOLO Administration Hydromorphone HCl 0.5 mg 08/14/19 08:40 08/14/19 10:00 Dilaudid Inj IV PUSH 0.5 mg Q3H PRN Administration Pain Rated 7-10 Dextrose/Sodium Chloride 1,000 mls @ 100 mls/hr 08/12/19 21:10 08/14/19 05:45 Dextrose 5% Sodium Chloride 0.9% IV CONT 100 mls/hr .Q10H CHOLO Administration Metronidazole 500 mg in 100 mls @ 100 mls/hr 08/13/19 12:00 08/14/19 06:46 Flagyl 500 Mg/Iso Soln 100 Ml IVPB Infused Q8HR CHOLO Infusion Lorazepam 0.5 mg 08/14/19 08:37 Ativan Inj IV PUSH Q8HR PRN Anxiety Methylprednisolone Sodium Succinate 40 mg 08/13/19 09:00 08/14/19 08:53 Solu-Medrol IV PUSH 40 mg TID CHOLO Administration Ondansetron HCl 4 mg 08/14/19 08:36 Zofran Inj IV PUSH Q4H PRN Nausea And Vomiting Pantoprazole Sodium 40 mg 08/14/19 09:00 08/14/19 10:59 Protonix Iv IV PUSH 40 mg QAM CHOLO Administration Polyethylene Glycol 238 gm 08/14/19 17:00 Miralax PO 08/14/19 17:01 ONCE ONE Quetiapine Fumarate 200 mg 08/13/19 09:00 08/14/19 11:14 Seroquel PO 200 mg 090
[2019-08-14 14:00] VITALS: BP 125/70; PULSE 82; RESP 20; TEMP 36.3; O2SAT 99
--- NOTE | 2019-08-14 15:59 | PC.NURSE ---
Patient concerned with dosage and frequency of Ativan. She states she takes 1mg TID with meals at home. Discussed this with Thao earlier today. Thao called to have me relay to patient that she looked patients RADIO ARTIST up, and Ativan was prescribed as a 0.5mg dose (not 1mg). However, patient is stating she takes 1mg and wants to know why that isn't ordered. Went in patients room with discharge door operator to discuss with patient the dosage of Ativan. Patient responds what pharmacy did she even look up? Explained that she is able to look up past prescriptions in the system and that she did not actually call the pharmacy. Patient pulled the blanket over her head and was shaking her foot back and forth. Asked patient if there was anything else we could do. However, patient did not respond and kept blanket pulled over her face and foot shaking. Will continue to monitor.
[2019-08-14] MEDS: BISACODYL 5 MG TABLET EC 20 MG PO (18:04)
[2019-08-14] MEDS: polyethylene glycoL 3350 238 GM BOTTLE PO (18:04)
--- NOTE | 2019-08-14 18:36 | PC.NURSE ---
Went into patients room to start her on the miralax bowel prep and administer the dulcolax tablets ordered by Dr. Rust. Educated patient on the need for her to complete this bowel prep in order to have the colonoscopy tomorrow. Patient very agitated and upset stating I can't drink all of that fucking liquid when I haven't even ate in 17 days and you guys expect me to drink all of this. And you expect me to take stool softeners when I have been shitting my brains out. Again attempted to educate her but she is reluctant to listen to anything I am saying. At the bedside with therapeutic radiologist Joy and patient requesting that I have her get out of her room because she can't fucking stand her. Patient stated Janice is the reason I got fucking fired from this hospital. Called to another TIM Menard and Janice stepped out of patients room. Myself and Derian sat with patient and talked to her about her treatment. She again was stating we are doing nothing to help make her better. She stated I just wish this illness would fucking kill me already. Asked her if she had any thoughts of hurting herself and at this time she told me no. When we were leaving room patient under her breath said May be upon your heads. ... During this, patient also stated When my test comes back tomorrow that I have Crohn's this hospital has one hell of a lawsuit coming their way. I was fired from here for my two call offs because I'm fucking sick. I can't wait to kimberlee you guys after this is all over with. Unable to calm patient down.
[2019-08-14 20:00] VITALS: O2SAT 99
--- NOTE | 2019-08-14 20:39 | PC.NURSE ---
Patient is demanding I unlock the cabinet and get her clothes and bottles of pills out of the closet. is at the bedside and told me those are his meds and he needs the medications. I unlocked cabinet and gave him the bag. I noticed in the bag some clothes and two bottles of medications. He dumped the bag out and started going through it and said, We are missing something small. I know it was in here I put it in here last night! I asked him what is it that your looking for? He said, Small vape pen He said I know it was in here someone must of took it. I looked through room and under patients bed found a pair of her jeans. I pulled the jeans out and handed them to her . He went through her pockets and found the vape pen in her kole pocket. The pair of Jeans were right under her bed on the left side in arms length for her. He said, this is what I was looking for. He said everything is here, Thank you. then requested to get towels and wash clothes. He said they both need to take a shower tonight. Notified Nursing supervisor phosphoric acid, Toshia Parrish.
[2019-08-14 21:40] VITALS: BP 146/96; PULSE 89; RESP 20; TEMP 35.9; O2SAT 98
[2019-08-14] MEDS: SODIUM CHLORIDE 0.9% IV 1,000 ML 75 ML IV CONT (21:45)
[2019-08-14] MEDS: QUEtiapine FUMARATE 100 MG TABLET 400 MG PO (21:45)
--- NOTE | 2019-08-14 22:15 | PC.NURSE ---
Patient is complaining about the bowel prep. She said, I told them I fucking cant drink this shit Patient is very upset that Toshia talked with her . She said I lied to her, I didn't tell her that Toshia was outside in the [address]. She said, You fucking lied to me I explained to her that Toshia is my rigger supervisor and I was told by her to ask your to step out in the hallway. I have to listen to my rigger supervisor. I apologized that she felt I lied to her. I told her I am doing everything I can to make her stay comfortable. She is going on a rant about how no one cares about her and no one listens to her. I spent some time at the bedside explaining plan of care and how her well being is important to us. has remained at the bedside. Pt refused to take po potassium. I explained to her I will give her potassium in her IV. She started yelling about starting the k-rider late at night. I was told today I had to take it by mouth and now you want to give it to me in my IV. I explained to her we preferred she took it by mouth due to her IV access placed in her thumb. If she is unable to take it orally we need to give it IV. She is angry and crying.
--- NOTE | 2019-08-14 22:33 | PC.NURSE ---
At 0 Toshia needed to talk to Patients regarding the pill bottles and vape. I called the out to the hallway and Toshia asked that he takes the vape pen and pill bottles out to the car. She explained that vaping is not allowed on hospital premises .
[2019-08-14] MEDS: ACETAMINOPHEN 325 MG TABLET 650 MG PO (23:06)
[2019-08-14] MEDS: ONDANSETRON INJ 4 MG/2 ML VIAL IV PUSH (23:08)
--- NOTE | 2019-08-14 23:44 | PC.NURSE ---
Pt vomited on the floor. Called housekeeping to mop room. When housekeeping came up she refused for them to mop the floor. She told them to leave.
--- NOTE | 2019-08-15 00:41 | PC.NURSE ---
Encouraged her to drink more of the Miralax with Gatorade. She said, I am doing the best I can is in bed with her. I have told her I need to see her BM and she has yet to show me her BM. She flushes toilet.
[2019-08-15] MEDS: HYDROMORPHONE HCL 1 MG/ML INJ IV PUSH ×5 (02:13→16:40)
[2019-08-15] MEDS: ONDANSETRON INJ 4 MG/2 ML VIAL IV PUSH ×2 (04:51→12:10)
[2019-08-15] MEDS: MAGNESIUM CITRATE 300 ML BTL PO (04:52)
[2019-08-15] MEDS: metroNIDAZOLE 500 MG/ISO 100ML 500 MG/100 ML BAG 100 MG IVPB ×2 (05:00→14:06)
--- NOTE | 2019-08-15 05:10 | PC.NURSE ---
She refuses to drink any more of the miralax. She said, I told the Doctor there is no way I can drink all that liquid. I am cleared out . I asked her to please show me her next BM and she said, I am cleaned out, nothing is left to come out I explained to her she needs to drink the mag citrate and she said, That shit marcos! I administered Zofran and a dose of pain medication and asked her to let the medication start working and please try to drink the mag citrate. Will monitor closely.
--- NOTE | 2019-08-15 05:14 | PC.NURSE ---
At 0100 She refuses to drink any more of the miralax. Explained to her its important to drink it and put the miralax drink closer to her. She grabbed and took a small sip and put it back on her bedside table.
--- NOTE | 2019-08-15 05:17 | PC.NURSE ---
at 0230 she said, I cant drink any more Its to much to drink. I explained she should drink more. I walked her to the bathroom and asked her not to flush. She came out of the bathroom and flushed the toilet. I asked if she had a BM and she yelled, I didnt have one I just pee'd I told you I have nothing in me! I havent ate for days!
[2019-08-15 06:00] VITALS: BP 115/76; PULSE 75; RESP 16; TEMP 36.1; O2SAT 99
[2019-08-15] MEDS: LORAZEPAM INJ 2 MG/ML VIAL 0.5 MG IV PUSH ×3 (06:05→17:00)
--- NOTE | 2019-08-15 06:23 | PC.NURSE ---
Took a small sip of Mag citrate and said, Its nasty I am not drinking that! She said, You haven't fucking let me sleep tonight You have been in here all night, and did not give me my sleeping medicine. I explained all her medications were given as ordered and no dose was missed. She said, Bullshit!
--- NOTE | 2019-08-15 06:40 | PC.NURSE ---
Throughout the night patient slept with her jeans next to her in bed. Refused to put her clothes in the closet.
--- NOTE | 2019-08-15 06:47 | PC.NURSE ---
Asked patient to throw her cups, Kleenex in the trash next to her bed for her safety and she continues to toss her trash on the floor. Multiple cups, napkins are lying on the floor.
[2019-08-15] MEDS: methylPREDNISolone SOD SUCC 40 MG VIAL IV PUSH (08:30)
[2019-08-15] MEDS: QUEtiapine FUMARATE 100 MG TABLET 200 MG PO ×2 (08:30→13:12)
[2019-08-15] MEDS: PANTOPRAZOLE SODIUM IV 40 MG VIAL IV PUSH (08:30)
[2019-08-15 10:00] LABS: Hematocrit 35.7 % (37.0-47.0); Hemoglobin 12.1 g/dL (12.0-15.0); Mean Corpuscular HGB Conc 33.9 g/dl (32-36); Mean Corpuscular Volume 85.6 fl (80-100); Mean Platelet Volume 9.4 fl (7.4-10.4); Platelet Count Result 312 k/mm3 (150-375); Red Blood Count 4.17 M/mm3 (4.2-5.4); Red Cell Distribution Width 13.6 % (11.5-14.5); White Blood Count 7.8 K/mm3 (4.5-10.0)
[2019-08-15 10:15] LABS: Blood Urea Nitrogen 3 mg/dL (7-17); Calcium 8.3 mg/dL (8.4-10.2); Carbon Dioxide 31 mmol/L (22-30); Chloride 105 mmol/L (98-107); Estimated CRCL calculation 162 ml/min; Estimated Glomerular Filt Rate > 60; Glucose 100 mg/dL (65-105); Potassium 3.2 mmol/L (3.4-5.0); Sodium 138 mmol/L (137-145)
--- NOTE | 2019-08-15 10:24 | WPDANESEPPF ---
Anes - Initial Pre Proc Eval Procedure: Operation Date: 08/15/19 10:30 Proposed Procedures p Esophagogastroduodenoscopy & Colonoscopy - Devin Fierro MD Date/Time: 08/15/19 10:24 Surgeon: Thao Alcocer PA-C Pre Op Diagnosis: colitis Patient Data Age: 24 Gender: F Height: 5 ft 6 in Weight: 64.5 kg Last Vital Signs Temp 97.0 F L 08/15/19 06:00 Pulse 75 08/15/19 06:00 Resp 16 08/15/19 06:00 BP 115/76 08/15/19 06:00 Pulse Ox 99 08/15/19 06:00 Allergies Allergy/AdvReac Type Severity Reaction Status Date / Time acetaminophen Allergy Unknown Nausea Verified 08/12/19 17:54 hydrocodone Allergy Unknown Nausea Verified 08/12/19 17:54 metoclopramide Allergy Unknown Nausea and Verified 08/12/19 17:54 Vomiting nortriptyline Allergy Unknown Nausea and Verified 08/12/19 17:54 Vomiting Penicillins Allergy Unknown Nausea Verified 08/12/19 17:54 Sulfa (Sulfonamide Allergy Unknown Nausea and Verified 08/12/19 17:54 Antibiotics) Vomiting haloperidol [From Haldol] Allergy Swelling Verified 08/12/19 20:54 of Lip/Tongue/Throat levofloxacin [From Levaquin] Allergy Rash Verified 08/13/19 20:30 morphine AdvReac Nausea and Verified 08/12/19 21:02 Vomiting Home Medications Medication Instructions Recorded Confirmed Type fluoxetine 40 mg PO DAILY 08/12/19 08/12/19 History lorazepam [Ativan] 1 mg PO TID PRN 08/12/19 08/12/19 History pantoprazole 40 mg PO DAILY 08/12/19 08/12/19 History quetiapine 200 mg PO BID 08/12/19 08/12/19 History quetiapine 400 mg PO HS 08/12/19 08/12/19 History Laboratory Tests 08/15/19 08/15/19 09:51 09:51 WBC 7.8 K/mm3 K/mm3 (4.5-10.0) RBC 4.17 M/mm3 L M/mm3 (4.2-5.4) Hgb 12.1 g/dL g/dL (12.0-15.0) Hct 35.7 % L % (37.0-47.0) MCV 85.6 fl fl (80-100) MCH 29.0 pg pg (26-34) MCHC 33.9 g/dl g/dl (32-36) RDW 13.6 % % (11.5-14.5) Plt Count 312 k/mm3 k/mm3 (150-375) MPV 9.4 fl fl (7.4-10.4) Sodium 138 mmol/L mmol/L (137-145) Potassium 3.2 mmol/L L mmol/L (3.4-5.0) Chloride 105 mmol/L mmol/L (98-107) Carbon Dioxide 31 mmol/L H mmol/L (22-30) BUN 3 mg/dL L mg/dL (7-17) Creatinine 0.40 mg/dL L mg/dL (0.7-1.0) Estim Creat Clear Calc 162 ml/min ml/min Estimated GFR > 60 (59 - ) Glucose 100 mg/dL mg/dL (65-105) Calcium 8.3 mg/dL L mg/dL (8.4-10.2) Patient hx anesthesia problems: none Family hx anesthesia problems: none PMFSH Past Medical History Medical History Abdominal pain Bipolar disorder Bloody diarrhea Depression IBS (irritable bowel syndrome) Immunodeficiency disorder, selective immunoglobulin Marijuana abuse Nausea and vomiting in adult Surgical History Surgical History Hx of cholecystectomy Family History Family History Father Acute myocardial infarction Mother Emphysema lung Chronic obstructive pulmonary disease Bipolar 1 disorder Sibling Selective immunoglobulin deficiency 2 sisters and a brother have it and all three of her children have it. Social History Social History Smoking status: Former smoker Alcohol intake: never Substance use: current Substance use type: marijuana Gender identity (if verbalized by the patient): Female Spiritual care concerns: No Anes - Eval Final PreProcedure Day of Procedure 08/15/19 10:24 Patient weight: normal Heart: regular rate and rhythm Lungs: clear to auscultation Airway: Mallampati scale class II Neurological: alert and oriented Last oral intake: >/= 8 hours ASA classification: II Emergent: no Anesthetic plan: proceed Anesthesia type and monitoring: genera
--- NOTE | 2019-08-15 11:08 | PC.NURSE ---
To GI Lab per stretcher, IV intact.
[2019-08-15] MEDS: LACTATED RINGERS 1,000 ML 150 ML IV CONT (11:13)
[2019-08-15 11:17] VITALS: BP 123/77; PULSE 86; RESP 18; TEMP 36.8; O2SAT 99
--- NOTE | 2019-08-15 11:26 | PC.NURSE ---
Patient to GI lab at this time. Patients significant other wishes to stay in room while patient is off the floor. Patient agreeable to this.
[2019-08-15 12:11] VITALS: BP 96/60; PULSE 76; RESP 13; O2SAT 98
--- NOTE | 2019-08-15 12:15 | SUR.OPER ---
EGD: START 1142, END 1148 COLONOSCOPY: START 1153, END 1206
--- NOTE | 2019-08-15 12:19 | PC.NURSE ---
Verified with all medications have been taken to the car. No medications are locked in closet at this time. states he had a conversation with Toshia last night and took everything to the car .
[2019-08-15 12:21] VITALS: BP 103/62; PULSE 78; RESP 13; O2SAT 97
[2019-08-15] MEDS: FAMOTIDINE 20 MG/2 ML VIAL IV PUSH (12:26)
[2019-08-15 12:31] VITALS: BP 101/60; PULSE 74; RESP 13; O2SAT 97
--- NOTE | 2019-08-15 12:50 | PC.NURSE ---
Returned from GI lab per shana. IV intact.
--- NOTE | 2019-08-15 13:09 | SUR.PHASEII ---
Pt sleeping comfortably post procedure but tearful upon awakening. Per MAY pt due for pain medication that she is recieving on medical floor. Pt transferred back to room to resume current medication regimen.
[2019-08-15] MEDS: NYSTATIN 100,000 UNITS/ML SUSP 5 ML ORAL.SUSP PO (13:11)
[2019-08-15] MEDS: MESALAMINE 400 MG DELAYED RELEASE CAPSULE 800 MG PO (13:11)
[2019-08-15 14:00] VITALS: BP 109/66; PULSE 75; RESP 16; TEMP 36.4; O2SAT 98
[2019-08-15] MEDS: FLUCONAZOLE 100 MG TABLET PO (14:06)
--- NOTE | 2019-08-15 15:04 | PM.DS ---
DS: Admitting Diagnosis Admitting Diagnosis Admitting Diagnosis: Noninfective gastroenteritis and colitis, unspecified DS: Discharge Diagnosis Discharge Diagnosis (1) Colitis: Code(s): K52.9 - Noninfective gastroenteritis and colitis, unspecified Status: Acute (2) Leukocytosis: Qualifiers: Leukocytosis type: unspecified Qualified Code(s): D72.829 - Elevated white blood cell count, unspecified Code(s): D72.829 - Elevated white blood cell count, unspecified Status: Resolved (3) Bipolar disorder: Qualifiers: Active/Remission status: remission status unspecified Qualified Code(s): F31.9 - Bipolar disorder, unspecified Code(s): F31.9 - Bipolar disorder, unspecified Status: Chronic (4) Depression: Qualifiers: Depression Type: unspecified Qualified Code(s): F32.9 - Major depressive disorder, single episode, unspecified Code(s): F32.9 - Major depressive disorder, single episode, unspecified Status: Chronic (5) Marijuana abuse: Code(s): F12.10 - Cannabis abuse, uncomplicated Status: Chronic (6) Nausea and vomiting in adult: Code(s): R11.2 - Nausea with vomiting, unspecified Status: Resolved (7) Hypokalemia: Code(s): E87.6 - Hypokalemia Status: Acute DS: Summary Hospital Course Reason for hospitalization: Mrs. Calvillo is a 24 y.o. female with PMH significant for bipolar disorder, depression, IBS, immunodeficiency, and marijuana abuse who presented to the ED 08/12/19 with a c/o lower abdominal pain and bloody diarrhea. She reported a hx of ongoing GI issues for the past four years and follows with a GI specialist at [facility]. She reported a hx of C. diff colitis and cyclic vomiting. She presented with c/o bloody diarrhea (>10 stools/day) and cramping abdominal pain for the past 15 days. She also noted associated vomiting. She was evaluated in the ED 3 days prior and prescribed metronidazole without relief. Initial workup in the ED revealed WBC 14.8, Hb 13.9, Hct 41, sodium 134, BUN 5, Cr 0.6, LFTs WNL, and lipase 24. CT abd/pelvis revealed interval progression of extensive colonic wall thickening in the ascending and transverse colon as well as at the distal ileum. The patient reported that her last colonoscopy was 1 year ago. She has a hx of C. diff infections in the past. GI was consulted and recommended IV methylprednisolone, IV flagyl, and IV levaquin. C. diff testing was repeated 08/13/19 and was negative. She receivied one dose of IV levaquin in the ED and had an allergic reaction with a rash so this was discontinued. She was admitted to the hospitalist service. She underwent colonoscopy and EGD by Dr. Rust. EGD revealed mild gastritis. A biopsy was obtained to r/o celiac sprue. Moderate diffuse esophagitis was visualized and suggestive of allen which was likely due to IV steroids. She was prescribed nystatin swish and swallow and fluconazole and IV steroids were discontinued. Colonoscopy revealed mild to moderate diffuse colitis throughout the colon with decreased vascularity which was edematous, erythematous, and granular. There was no mucosal bleeding. Biopsies were obtained. She was prescribed mesalamine per GI due to concern for inflammatory bowel disease. She requested to go home as her sx improved and she reported that she needed to address her daughter's health concerns. Her diarrhea frequency decreased and she was no longer endorsing hematochezia. Her nausea and vomiting resolved and she was tolerating her diet well. She was cleared from a GI standpoint to discharge with close outpatient follow-up and she was advised to follow-up with Dr. Rust within 1 week to review her biopsy results and ensure symptomatic improvement. Her potassium was low and was replaced. She refused PO potassium replacement so IV potassium replcement was given. She was advised to recheck BMP in 3 days and follow-up with her PCP. Her hawk
[2019-08-15] MEDS: KCL 20 MEQ/SW 100 ML 100 ML 50 MEQ IVPB (15:14)
--- NOTE | 2019-08-17 10:49 | PC.NURSE ---
C. diff negative. GI pathology report faxed to PCP- Eloisa Perez NP
== END 2019-08-15 17:20 | disposition home or self-care (01) | DRG 249 ==
LOC: ANHED 21:19 → ANH2MED 21:23
PROVIDERS: Emergency Medicine; Internal Medicine Gastroenterology; Physician Assistant; Admitting Provider Family Medicine; Emergency Provider Emergency Medicine; PCP Nurse Practitioner; Visit Provider Hospitalist
PROC: 0DJ08ZZ Inspection of Upper Intestinal Tract, Via Natural or Artificial Opening Endoscopic (ICD-10-PCS; CPT 43235; principal; 2019-08-15 10:30)
DX: K52.9 Noninfective gastroenteritis and colitis, unspecified (principal); B37.81 Candidal esophagitis; K29.50 Unspecified chronic gastritis without bleeding; K64.8 Other hemorrhoids; D72.829 Elevated white blood cell count, unspecified; F31.9 Bipolar disorder, unspecified; F12.10 Cannabis abuse, uncomplicated; E87.6 Hypokalemia; L27.0 Generalized skin eruption due to drugs and medicaments taken internally; T36.8X5A Adverse effect of other systemic antibiotics, initial encounter; Z90.49 Acquired absence of other specified parts of digestive tract; Z87.891 Personal history of nicotine dependence
CPT/HCPCS: 36415; 74177; 80048; 80053; 80307; 81001; 81025; 83690; 83735; 85025; 85027; 85652; 86140; 87324; 88305; 88312; 96361; 96365; 96374; 96375; 96376; 99285; A9270; C9113; G0378; J1170; J1200; J1650; J1956; J2060; J2270; J2405; J2704; J2920; J3010; J3480; J7030; J7042; J7120; Q9967

== ENCOUNTER 2019-11-11 22:04 | Emergency (ER) | payer OTHER, SELFPAY ==
--- NOTE | ~2019-11-11 | XR_ITS ---
XR forearm RT 2V DATE: 11/11/2019 23:30 INDICATION: Fall on outstretched arms. Right elbow and wrist pain TECHNIQUE: AP and lateral views of right forearm COMPARISON: None FINDINGS: No fracture or dislocation of the right forearm. No elbow joint effusion is evident. IMPRESSION: Negative Reviewed, dictated and finalized at location A. IMPRESSION: Negative
--- NOTE | ~2019-11-11 | XR_ITS ---
EXAMINATION: XR elbow RT min 3V DATE: 11/12/2019 00:33 INDICATION: Right elbow pain TECHNIQUE: Anteroposterior, two oblique and lateral views of the right elbow were obtained. COMPARISON: None. FINDINGS: Alignment is normal. There is subtle cortical irregularity along the neck of the radius wit h a questionable transverse lucency of the radial neck. No joint effusion is identified. Joint spaces are normal. Soft tissues are unremarkable. IMPRESSION: 1. Possible nondisplaced radial neck fracture. Reviewed, dictated and finalized at location A.
[2019-11-11 22:11] VITALS: BP 120/92; PULSE 114; RESP 20; TEMP 36.6; O2SAT 99
[2019-11-12] MEDS: oxyCODONE/ACETAMINOPHEN 5-325 MG TABLET 1 TABLET PO (00:36)
[2019-11-12] MEDS: ONDANSETRON HCL ODT 4 MG TABLET PO (00:36)
--- NOTE | 2019-11-12 01:06 | ED.UPPEXIN ---
HPI - Extremity Injury (Upper) General Chief Complaint: Extremity Injury, Upper Stated Complaint: my right arm is broken Time Seen by Provider: 11/11/19 23:42 Source: patient Mode of arrival: ambulatory Limitations: no limitations History of Present Illness HPI narrative: This patient is a 24 year old who presents for evaluation right elbow pain s/p fall. She states she was skating with her children when she fell onto her right arm. She reports severe right elbow fore arm pain. She states her pain is worse with moving. She denies numbness or tingling. Related Data Home Medications Medication Instructions Recorded Confirmed fluoxetine 40 mg PO DAILY 08/12/19 08/12/19 lorazepam [Ativan] 1 mg PO TID PRN 08/12/19 08/12/19 pantoprazole 40 mg PO DAILY 08/12/19 08/12/19 quetiapine 200 mg PO BID 08/12/19 08/12/19 quetiapine 400 mg PO HS 08/12/19 08/12/19 Allergies Allergy/AdvReac Type Severity Reaction Status Date / Time acetaminophen Allergy Unknown Nausea Verified 11/11/19 23:44 hydrocodone Allergy Unknown Nausea Verified 11/11/19 23:44 metoclopramide Allergy Unknown Nausea and Verified 11/11/19 23:44 Vomiting nortriptyline Allergy Unknown Nausea and Verified 11/11/19 23:44 Vomiting Penicillins Allergy Unknown Nausea Verified 11/11/19 23:44 Sulfa (Sulfonamide Allergy Unknown Nausea and Verified 11/11/19 23:44 Antibiotics) Vomiting haloperidol [From Haldol] Allergy Swelling Verified 11/11/19 23:44 of Lip/Tongue/Throat levofloxacin [From Levaquin] Allergy Rash Verified 11/11/19 23:44 morphine AdvReac Nausea and Verified 11/11/19 23:44 Vomiting Review of Systems Review of Systems: All systems reviewed & are unremarkable except as noted in HPI and below PMFSH Past Medical History Medical History Abdominal pain Bipolar disorder Bloody diarrhea Arielle esophagitis Depression IBS (irritable bowel syndrome) Immune deficiency disorder Immunodeficiency disorder, selective immunoglobulin Marijuana abuse Nausea and vomiting in adult Ulcerative colitis Surgical History Surgical History (System 09/02/19 @ 13:00 by Crystal Garza) Hx of cholecystectomy Social History Social History (System 09/02/19 @ 13:00 by Crystal Garza) Smoking status: Former smoker Smoking end date: 03/09/13 Alcohol intake: never Substance use: current Substance use type: marijuana Gender identity (if verbalized by the patient): Female Spiritual care concerns: No Exam Const: General: alert Orientation/consciousness: patient oriented x3 Other: patient crying in pain Eyes: Pupils: Equal, round and reactive pupils present EOM: EOMs intact bilaterally Resp: Effort & Inspection: normal respiratory effort Skin: General skin exam: normal color Rashes: no rashes Other: no bruising to the arm Neuro: General: patient oriented x3 and moves all extremities Extrem: Other: right arm. she is able to range at shoulder. She has tenderness lateral elbow but no bruising, no swelling, no deformity . she is have pain with extention, flexion and suppination. Course Course Emergency Course: placed in shoulder immobilizer Vital Signs Vital signs: Vital Signs Temperature 97.9 F 11/11/19 22:11 Pulse Rate 114 H 11/11/19 22:11 Respiratory Rate 20 11/11/19 22:11 Blood Pressure 120/92 H 11/11/19 22:11 Pulse Oximetry 99 11/11/19 22:11 Temperature 97.9 F 11/11/19 22:11 Pulse Rate 99 11/12/19 01:54 Respiratory Rate 16 11/12/19 01:54 Blood Pressure 128/74 11/12/19 01:54 Pulse Oximetry 100 11/12/19 01:54 MDM - Extremity Injury (Upper) Imaging Data Attestation: I personally reviewed and interpreted this imaging study as follows: My impression: right elbow- no fracture Radiologist's impression: ITS Impressions Forearm X-Ray 11/11/19 23:33 IMPRESSION: Negative Discharge Plan Dis
[2019-11-12 01:54] VITALS: BP 128/74; PULSE 99; RESP 16; O2SAT 100
== END 2019-11-12 01:55 | disposition home or self-care (01) ==
PROVIDERS: Emergency Provider General Practice; PCP Nurse Practitioner
DX: S50.01XA Contusion of right elbow, initial encounter (principal); F31.9 Bipolar disorder, unspecified; K58.9 Irritable bowel syndrome, unspecified; D84.9 Immunodeficiency, unspecified; Z87.891 Personal history of nicotine dependence; V00.121A Fall from non-in-line roller-skates, initial encounter; Y93.51 Activity, roller skating (inline) and skateboarding
CPT/HCPCS: 73080; 73090; 99283; A4565; A9270

== ENCOUNTER 2020-01-04 19:04 | Emergency (ER) | payer OTHER, MEDICAID, SELFPAY ==
[2020-01-04 19:12] VITALS: BP 132/86; PULSE 104; RESP 20; TEMP 36.4; O2SAT 100
--- NOTE | 2020-01-04 20:06 | ED.DENTAL ---
HPI - Dental/Oral General Chief complaint: Dental/Oral Stated complaint: tooth pain Time Seen by Provider: 01/04/20 19:26 Source: patient Mode of arrival: ambulatory Limitations: no limitations History of Present Illness HPI Narrative: Patient presents with chief complaint of pain to the right upper tooth that has been present for months but has worsened over the past 2 to 3 days. Patient states that she has been taking Tylenol for her discomfort without resolution of her symptoms. Patient states that she has a dental appointment in a few weeks but did not want to wait. Patient states that she is allergic to all pain medications such as tramadol, Tylenol 3, Vicodin, morphine. Patient states that the only medication that she can take for pain is Percocet. Patient states that she had an abscess to the gumline that she drained. Patient denies fever, chills, nausea, vomiting, diarrhea. Patient states she cannot take NSAIDs due to ulcerative colitis. Related Data Home Medications Medication Instructions Recorded Confirmed fluoxetine 40 mg PO DAILY 08/12/19 08/12/19 lorazepam [Ativan] 1 mg PO TID PRN 08/12/19 08/12/19 pantoprazole 40 mg PO DAILY 08/12/19 08/12/19 quetiapine 200 mg PO BID 08/12/19 08/12/19 quetiapine 400 mg PO HS 08/12/19 08/12/19 Allergies Allergy/AdvReac Type Severity Reaction Status Date / Time acetaminophen Allergy Unknown Nausea Verified 11/17/19 14:17 hydrocodone Allergy Unknown Nausea Verified 11/17/19 14:17 metoclopramide Allergy Unknown Nausea and Verified 11/17/19 14:17 Vomiting nortriptyline Allergy Unknown Nausea and Verified 11/17/19 14:17 Vomiting Penicillins Allergy Unknown Nausea Verified 11/17/19 14:17 Sulfa (Sulfonamide Allergy Unknown Nausea and Verified 11/17/19 14:17 Antibiotics) Vomiting haloperidol [From Haldol] Allergy Swelling Verified 11/17/19 14:17 of Lip/Tongue/Throat levofloxacin [From Levaquin] Allergy Rash Verified 11/17/19 14:17 morphine AdvReac Nausea and Verified 11/17/19 14:17 Vomiting Review of Systems Review of Systems: Narrative: CONSTITUTIONAL: Denies fever, chills, or sweats. EYES: Denies visual changes, redness, or discharge. ENT: Reports dental pain denies rhinorrhea, congestion, sore throat, or otalgia. CARDIOVASCULAR: Denies chest pain, palpitations, or edema. RESPIRATORY: Denies cough or dyspnea. GASTROINTESTINAL: Denies abdominal pain, nausea, vomiting, or diarrhea. GENITOURINARY: Denies dysuria or hematuria. SKIN: Denies rash or itching. MUSCULOSKELETAL: Denies back pain, myalgia, or joint pain NEUROLOGIC: Denies headache, numbness, dizziness, or weakness. PSYCHIATRIC: Denies anxiety or depression. [facility] Past Medical History Medical History (Updated 01/04/20 @ 20:10 by Abigail Howard PA-C) Abdominal pain Anemia Anxiety Asthma Bipolar disorder Bloody diarrhea Arielle esophagitis Depression Dizziness Headache History of adverse reaction to anesthesia Hypertension IBS (irritable bowel syndrome) Immune deficiency disorder Immunodeficiency disorder, selective immunoglobulin Latex allergy Marijuana abuse Nausea and vomiting in adult Seasonal allergies Stomach pain Ulcerative colitis Weight gain Surgical History Surgical History Hx of cholecystectomy Family History Family History Father Acute myocardial infarction Mother Emphysema lung Chronic obstructive pulmonary disease Bipolar 1 disorder Sibling Selective immunoglobulin deficiency 2 sisters and a brother have it and all three of her children have it. Other Arthritis Diabetes mellitus Heart disease Hypertension Malignant neoplasm Neuropathy Social History Social History Smoking status: Former smoker Smoking end date: 03/09/13 Alcohol intake: never Substance us
--- NOTE | 2020-01-04 21:02 | ED.GENADULT ---
HPI - General Adult General Chief complaint: Dental/Oral Stated complaint: tooth pain Time Seen by Provider: 01/04/20 19:26 Source: patient Mode of arrival: ambulatory Limitations: no limitations History of Present Illness HPI narrative: Patient presents with chief complaint of right upper dental pain that has been present for many months but has worsened over the past 2 to 3 days. Patient states she had a abscess to the right upper gumline that she popped and drained. Patient denies fever, chills, nausea, vomiting, diarrhea or any other symptoms. Patient states she has been taking Tylenol for discomfort. Patient states that she cannot take any NSAIDs, Vicodin, tramadol or Tylenol #3. Patient is requesting Percocet for pain. Patient states she has an appointment at the dentist in approximately 2 weeks. Related Data Home Medications Medication Instructions Recorded Confirmed fluoxetine 40 mg PO DAILY 08/12/19 08/12/19 lorazepam [Ativan] 1 mg PO TID PRN 08/12/19 08/12/19 pantoprazole 40 mg PO DAILY 08/12/19 08/12/19 quetiapine 200 mg PO BID 08/12/19 08/12/19 quetiapine 400 mg PO HS 08/12/19 08/12/19 Allergies Allergy/AdvReac Type Severity Reaction Status Date / Time acetaminophen Allergy Unknown Nausea Verified 11/17/19 14:17 hydrocodone Allergy Unknown Nausea Verified 11/17/19 14:17 metoclopramide Allergy Unknown Nausea and Verified 11/17/19 14:17 Vomiting nortriptyline Allergy Unknown Nausea and Verified 11/17/19 14:17 Vomiting Penicillins Allergy Unknown Nausea Verified 11/17/19 14:17 Sulfa (Sulfonamide Allergy Unknown Nausea and Verified 11/17/19 14:17 Antibiotics) Vomiting haloperidol [From Haldol] Allergy Swelling Verified 11/17/19 14:17 of Lip/Tongue/Throat levofloxacin [From Levaquin] Allergy Rash Verified 11/17/19 14:17 morphine AdvReac Nausea and Verified 11/17/19 14:17 Vomiting Review of Systems Review of Systems: Narrative: CONSTITUTIONAL: Denies fever, chills, or sweats. EYES: Denies visual changes, redness, or discharge. ENT: Reports dental pain denies rhinorrhea, congestion, sore throat, or otalgia. CARDIOVASCULAR: Denies chest pain, palpitations, or edema. RESPIRATORY: Denies cough or dyspnea. GASTROINTESTINAL: Denies abdominal pain, nausea, vomiting, or diarrhea. GENITOURINARY: Denies dysuria or hematuria. SKIN: Denies rash or itching. MUSCULOSKELETAL: Denies back pain, myalgia, or joint pain NEUROLOGIC: Denies headache, numbness, dizziness, or weakness. PSYCHIATRIC: Denies anxiety or depression. [facility] Past Medical History Medical History (Updated 01/04/20 @ 20:10 by Abigail Howard PA-C) Abdominal pain Anemia Anxiety Asthma Bipolar disorder Bloody diarrhea Arielle esophagitis Depression Dizziness Headache History of adverse reaction to anesthesia Hypertension IBS (irritable bowel syndrome) Immune deficiency disorder Immunodeficiency disorder, selective immunoglobulin Latex allergy Marijuana abuse Nausea and vomiting in adult Seasonal allergies Stomach pain Ulcerative colitis Weight gain Surgical History Surgical History Hx of cholecystectomy Family History Family History Father Acute myocardial infarction Mother Emphysema lung Chronic obstructive pulmonary disease Bipolar 1 disorder Sibling Selective immunoglobulin deficiency 2 sisters and a brother have it and all three of her children have it. Other Arthritis Diabetes mellitus Heart disease Hypertension Malignant neoplasm Neuropathy Social History Social History Smoking status: Former smoker Smoking end date: 03/09/13 Alcohol intake: never Substance use: current Substance use type: marijuana Gender identity (if verbalized by the patient): Female Spiritual care concerns: No Exam
== END 2020-01-04 20:24 | disposition home or self-care (01) ==
PROVIDERS: Emergency Provider Family Medicine; PCP Nurse Practitioner Family
DX: K08.89 Other specified disorders of teeth and supporting structures (principal); K04.7 Periapical abscess without sinus; D64.9 Anemia, unspecified; F41.9 Anxiety disorder, unspecified; J45.909 Unspecified asthma, uncomplicated; F31.9 Bipolar disorder, unspecified; I10 Essential (primary) hypertension
CPT/HCPCS: 99283

== ENCOUNTER 2020-01-12 09:33 | Outpatient (CLI) | payer OTHER, MEDICAID, SELFPAY ==
[2020-01-12 09:56] LABS: Hematocrit 41.3 % (37.0-47.0); Hemoglobin 13.8 g/dL (12.0-15.0); Mean Corpuscular HGB Conc 33.4 g/dl (32-36); Mean Corpuscular Hemoglobin 29.4 pg (26-34); Mean Corpuscular Volume 88.1 fl (80-100); Mean Platelet Volume 9.9 fl (7.4-10.4); Platelet Count Result 239 k/mm3 (150-375); Red Blood Count 4.69 M/mm3 (4.2-5.4); Red Cell Distribution Width 14.2 % (11.5-14.5); White Blood Count 6.9 K/mm3 (4.5-10.0)
[2020-01-12 10:12] LABS: Alanine Aminotransferase 14 U/L (4-35); Albumin Level 4.1 g/dL (3.5-5.1); Alkaline Phosphatase 59 U/L (38-126); Anion Gap 6 mmol/L (8-16); Aspartate Amino Transferase 27 U/L (14-36); Bilirubin,Total 0.3 mg/dL (0.2-1.3); Blood Urea Nitrogen 11 mg/dL (7-17); CRP < 0.5 mg/dL (<1.0); Calcium 9.1 mg/dL (8.4-10.2); Carbon Dioxide 25 mmol/L (22-30); Chloride 107 mmol/L (98-107); Estimated Glomerular Filt Rate > 60; Glucose 90 mg/dL (65-105); Potassium 4.7 mmol/L (3.4-5.0); Sodium 138 mmol/L (137-145)
[2020-01-12 10:26] LABS: Erythrocyte Sedimentation Rate 14 mm/hr (0-20)
== END 2020-01-12 09:34 | disposition home or self-care (01) ==
LOC: ANHLAB 09:36
PROVIDERS: PCP Nurse Practitioner Family; Visit Provider Internal Medicine Gastroenterology
DX: K51.90 Ulcerative colitis, unspecified, without complications (principal)
CPT/HCPCS: 36415; 80053; 85027; 85652; 86140

== ENCOUNTER 2020-02-09 15:22 | Emergency (ER) | payer OTHER, MEDICAID, SELFPAY ==
--- NOTE | ~2020-02-09 | CT_ITS ---
EXAMINATION: CT abdomen pelvis w con DATE: 02/09/2020 17:37 INDICATION: Abdominal pain, bloating, bloody stools and vomiting. TECHNIQUE: Computed tomography (CT) of the abdomen and pelvis was performed with 100 mL Omnipaque-350 intravenous contrast. Automated exposure control and iterative reconstruction technique were employe d. The dose-length product was 459.06 mGy-cm. COMPARISON: 08/12/2019 FINDINGS: Likely benign 6 x 4 mm subpleural moderate on the left lower lobe which is unchanged since 05/18/2016. Heart size is normal. No pericardial or pleural effusion. Cholecystectomy clips the gallbladder steve a. Focal hepatic steatosis at the ligamentum teres. Spleen, pancreas, bilateral adrenal glands and ki dneys are normal. There is wall thickening at the gastric pylorus without discrete ulceration. Small bowel and colon are unremarkable with no wall thickening or obstruction. Normal appendix. Bladder, an teverted uterus and bilateral adnexa are unremarkable. Tiny amount of likely physiologic free fluid i n the cul-de-sac. No abscess or free intraperineal gas. No pathologically enlarged abdominal or pelvi c lymphadenopathy. Bones are unremarkable. IMPRESSION: 1. Mild wall thickening at the gastric pylorus which could be due to gastritis or peptic ulcer diseas e although no discrete ulceration is identified. Reviewed, dictated and finalized at location A. [employer] IMPRESSION: 1. Mild wall thickening at the gastric pylorus which could be due to gastritis or peptic ulcer disease although no discrete ulceration is identified.
[2020-02-09 15:35] VITALS: BP 126/64; PULSE 125; RESP 19; TEMP 36.7; O2SAT 97
[2020-02-09 16:14] LABS: Add Urine Microscopic? YES; Appearance Urine Clear (Clear); Bilirubin Urine 1+ (Negative); Blood Urine Negative (Negative); Color Urine Yellow (Yellow); Glucose Urine UA Negative (Negative); Ketones Urine Negative (Negative); Leukocyte Esterase Ur 2+ LEU/UL (Negative); Mucus Urine Heavy /lpf; Nitrate Urine Negative (Negative); Protein Urine 2+ mg/dL (Negative); RBC Urine 0-2 /hpf (0-2); Squamous Epithelial Cell Urine Many /hpf (Few)
[2020-02-09] MEDS: ONDANSETRON INJ 4 MG/2 ML VIAL IV PUSH (16:14)
[2020-02-09] MEDS: SODIUM CHLORIDE 0.9% IV 1,000 ML 999 ML IV CONT (16:14)
--- NOTE | 2020-02-09 16:15 | ED.ABDPAIN ---
HPI - Abdominal Pain General Chief Complaint: Abdominal Pain Stated Complaint: abd pain/vomiting/blood in stoo. Time Seen by Provider: 02/09/20 15:39 Source: patient Mode of arrival: ambulatory Limitations: no limitations History of Present Illness HPI narrative: This is a 24-year-old female that presents to the emergency department for lower abdominal pain x 8 days. Associated with nausea and vomiting. Also reports bloody diarrhea. Reports she was recently diagnosed with ulcerative colitis. Reports she is supposed to be on steroid for this, but is not tolerating it due to nausea. Reports she was unable to afford the other medication that was prescribed for her UC. Denies fever or dysuria. Related Data Home Medications Medication Instructions Recorded Confirmed fluoxetine 40 mg PO DAILY 08/12/19 01/12/20 lorazepam [Ativan] 1 mg PO TID PRN 08/12/19 01/12/20 pantoprazole 40 mg PO DAILY 08/12/19 01/12/20 quetiapine 200 mg PO BID 08/12/19 01/12/20 quetiapine 400 mg PO HS 08/12/19 01/12/20 Allergies Allergy/AdvReac Type Severity Reaction Status Date / Time acetaminophen Allergy Unknown Nausea Verified 02/09/20 15:37 hydrocodone Allergy Unknown Nausea Verified 02/09/20 15:37 metoclopramide Allergy Unknown Nausea and Verified 02/09/20 15:37 Vomiting nortriptyline Allergy Unknown Nausea and Verified 02/09/20 15:37 Vomiting Penicillins Allergy Unknown Nausea Verified 02/09/20 15:37 Sulfa (Sulfonamide Allergy Unknown Nausea and Verified 02/09/20 15:37 Antibiotics) Vomiting haloperidol [From Haldol] Allergy Swelling Verified 02/09/20 15:37 of Lip/Tongue/Throat levofloxacin [From Levaquin] Allergy Rash Verified 02/09/20 15:37 morphine AdvReac Nausea and Verified 02/09/20 15:37 Vomiting Review of Systems Review of Systems: Narrative: CONSTITUTIONAL: Denies fever GASTROINTESTINAL: Reports abdominal pain, nausea, vomiting, and diarrhea. GENITOURINARY: Denies dysuria All systems reviewed & are unremarkable except as noted in HPI and below PMFSH Past Medical History Medical History (Updated 02/09/20 @ 19:48 by Mary Jane Roblero PA-C) Abdominal pain Anemia Anxiety Asthma Bipolar disorder Bloody diarrhea Arielle esophagitis Depression Dizziness Headache History of adverse reaction to anesthesia Hypertension IBS (irritable bowel syndrome) Immune deficiency disorder Immunodeficiency disorder, selective immunoglobulin Latex allergy Marijuana abuse Nausea and vomiting in adult Seasonal allergies Stomach pain Ulcerative colitis Weight gain Surgical History Surgical History Hx of cholecystectomy Family History Family History Father Acute myocardial infarction Mother Emphysema lung Chronic obstructive pulmonary disease Bipolar 1 disorder Sibling Selective immunoglobulin deficiency 2 sisters and a brother have it and all three of her children have it. Other Arthritis Diabetes mellitus Heart disease Hypertension Malignant neoplasm Neuropathy Social History Social History Smoking status: Never smoker Smoking end date: 03/09/13 Alcohol intake: never Substance use: current Substance use type: marijuana Gender identity (if verbalized by the patient): Female Spiritual care concerns: No Exam Narrative: Exam Narrative: GENERAL: Well-appearing, well-nourished, and in no acute distress. HEAD: Normocephalic, atraumatic. EYES: EOMI. CHEST: Clear to auscultation. No respiratory distress. No wheezes rales or rhonchi HEART: Regular rate and rhythm. No murmur heard. Normal peripheral pulses. ABDOMEN: Soft, nondistended, normal active bowel sounds. Mild tenderness to palpation throughout the lower abdomen, without guarding EXTREMITIES: Normal range of motion. No edema. SKIN: Warm, dry, no rash. NEURO: No focal
[2020-02-09 16:18] LABS: Specific Grav Ur 1.033 (1.001-1.035)
[2020-02-09 16:19] LABS: Basophils Percent Auto 0.5 % (0.2-1.2); Eosinophils Absolute Auto 0.1 K/mm3 (0-0.3); Eosinophils Percent Auto 0.6 % (0-4.4); Hematocrit 35.5 % (37.0-47.0); Hemoglobin 12.2 g/dL (12.0-15.0); Immature Granulocyte Absolute 0.02 K/mm3 (0.00-0.031); Immature Granulocyte Percent A 0.3 % (0-0.5); Lymphocytes Absolute Auto 2.78 K/mm3 (0.9-3.2); Lymphocytes Percent Auto 35.7 % (18.3-44.2); Mean Corpuscular HGB Conc 34.4 g/dl (32-36); Mean Corpuscular Hemoglobin 29.4 pg (26-34); Mean Corpuscular Volume 85.5 fl (80-100); Mean Platelet Volume 9.7 fl (7.4-10.4); Monocytes Absolute Auto 0.5 K/mm3 (0.1-0.6); Monocytes Percent Auto 6.4 % (2.6-8.5); Neutrophils Absolute Auto 4.4 K/mm3 (1.3-6.7); Neutrophils Percent Auto 56.5 % (45.5-73.1); Platelet Count Result 250 k/mm3 (150-375); Red Blood Count 4.15 M/mm3 (4.2-5.4); Red Cell Distribution Width 14.9 % (11.5-14.5); White Blood Count 7.8 K/mm3 (4.5-10.0)
[2020-02-09 16:34] LABS: Alkaline Phosphatase 52 U/L (38-126); Anion Gap 8 mmol/L (8-16); Aspartate Amino Transferase 21 U/L (14-36); Bilirubin,Total 0.2 mg/dL (0.2-1.3); Blood Urea Nitrogen 14 mg/dL (7-17); Calcium 9.1 mg/dL (8.4-10.2); Carbon Dioxide 29 mmol/L (22-30); Chloride 104 mmol/L (98-107); Estimated CRCL calculation 87 ml/min; Estimated Glomerular Filt Rate > 60; Glucose 134 mg/dL (65-105); Lipase 29 U/L (23-300); Sodium 141 mmol/L (137-145)
[2020-02-09] MEDS: HYDROmorphone HCL INJ (*CRX) 1 MG/ML SYR 0.5 MG IV PUSH ×2 (16:38→18:36)
[2020-02-09 16:47] LABS: Alanine Aminotransferase 15 U/L (4-35)
[2020-02-09 17:50] VITALS: BP 152/88; PULSE 88; RESP 16; O2SAT 97
[2020-02-09] MEDS: PROCHLORPERAZINE EDISYLATE 10 MG/2 ML VIAL IV PUSH (18:36)
[2020-02-09] MEDS: PANTOPRAZOLE SODIUM IV 40 MG VIAL IV PUSH (18:36)
[2020-02-09] MEDS: POTASSIUM CHLORIDE 20 MEQ PACKET (FOR LIQUID) 40 MEQ PO (19:08)
[2020-02-09] MEDS: POTASSIUM CHLORIDE 20 MEQ TABLET 40 MEQ PO (19:17)
[2020-02-09 20:10] VITALS: BP 110/85; PULSE 93; RESP 14; O2SAT 97
== END 2020-02-09 20:10 | disposition home or self-care (01) ==
PROVIDERS: Emergency Medicine; Emergency Provider Emergency Medicine; PCP Nurse Practitioner Family
DX: E87.6 Hypokalemia (principal); K51.90 Ulcerative colitis, unspecified, without complications; K29.50 Unspecified chronic gastritis without bleeding; D64.9 Anemia, unspecified; F41.9 Anxiety disorder, unspecified; J45.909 Unspecified asthma, uncomplicated; F31.9 Bipolar disorder, unspecified; I10 Essential (primary) hypertension
CPT/HCPCS: 36415; 74177; 80053; 81001; 81025; 83690; 85025; 96361; 96374; 96375; 96376; 99284; A9270; C9113; J0780; J1170; J2405; J7030; Q9967

== ENCOUNTER 2020-02-14 18:35 | Observation (INO) | payer OTHER, MEDICAID, SELFPAY ==
--- NOTE | ~2020-02-14 | CT_ITS ---
EXAMINATION: CT abdomen pelvis w con INDICATION: Abdominal pain, history of ulcerative colitis TECHNIQUE: Computed tomographic images of the abdomen and pelvis were obtained after the administrati on of 100 cc of Omnipaque 350 intravenous contrast. The dose-length product (DLP) was 397.88 mGy-cm. Automated exposure control and iterative reconstruction technique were employed. COMPARISON: 02/09/2020 FINDINGS: A stable nodule is noted in the left lower lobe. The heart size is normal. The gallbladder is surgically absent. The liver, spleen, pancreas, and adrenal glands are normal. The kidneys are unr emarkable. No pathologically enlarged abdominal or pelvic lymph nodes are identified. There is no rhett e intraperitoneal gas or evidence of bowel obstruction. A moderate volume of stool is present in the ascending and transverse colon. No specific findings of ulcerative colitis are identified. IMPRESSION: 1. No CT correlate for the patient's symptoms. Reviewed, dictated and finalized at location A. [employer] B[employer]EFITS DIRECTOR
[2020-02-14 18:58] VITALS: BP 141/82; PULSE 101; RESP 17; TEMP 36; O2SAT 98
[2020-02-14 19:25] LABS: Basophils Absolute Auto 0.1 K/mm3 (0.0-0.1); Eosinophils Absolute Auto 0.3 K/mm3 (0-0.3); Eosinophils Percent Auto 3.2 % (0-4.4); Hematocrit 40.1 % (37.0-47.0); Hemoglobin 13.7 g/dL (12.0-15.0); Immature Granulocyte Absolute 0.02 K/mm3 (0.00-0.031); Immature Granulocyte Percent A 0.2 % (0-0.5); Lymphocytes Absolute Auto 2.92 K/mm3 (0.9-3.2); Lymphocytes Percent Auto 31.2 % (18.3-44.2); Mean Corpuscular HGB Conc 34.2 g/dl (32-36); Mean Corpuscular Hemoglobin 30.1 pg (26-34); Mean Corpuscular Volume 88.1 fl (80-100); Monocytes Absolute Auto 0.7 K/mm3 (0.1-0.6); Monocytes Percent Auto 6.9 % (2.6-8.5); Neutrophils Absolute Auto 5.4 K/mm3 (1.3-6.7); Neutrophils Percent Auto 57.5 % (45.5-73.1); Platelet Count Result 285 k/mm3 (150-375); Red Blood Count 4.55 M/mm3 (4.2-5.4); Red Cell Distribution Width 14.9 % (11.5-14.5); White Blood Count 9.4 K/mm3 (4.5-10.0)
[2020-02-14 19:38] LABS: Alanine Aminotransferase 13 U/L (4-35); Albumin Level 4.3 g/dL (3.5-5.1); Alkaline Phosphatase 68 U/L (38-126); Anion Gap 6 mmol/L (8-16); Aspartate Amino Transferase 23 U/L (14-36); Bilirubin,Total 0.2 mg/dL (0.2-1.3); Blood Urea Nitrogen 11 mg/dL (7-17); Carbon Dioxide 27 mmol/L (22-30); Chloride 106 mmol/L (98-107); Estimated CRCL calculation 108 ml/min; Estimated Glomerular Filt Rate > 60; Glucose 97 mg/dL (65-105); Lipase 58 U/L (23-300); Potassium 4.6 mmol/L (3.4-5.0); Sodium 139 mmol/L (137-145)
--- NOTE | 2020-02-14 20:43 | ED.ABDPAIN ---
HPI - Abdominal Pain General Chief Complaint: Abdominal Pain Stated Complaint: abd pain Time Seen by Provider: 02/14/20 20:42 Source: patient Mode of arrival: ambulatory Limitations: no limitations History of Present Illness HPI narrative: Patient is a 24-year-old female with a history of ulcerative colitis, IgG deficiency, Arielle esophagitis, who presents for evaluation of recurrent abdominal pain, vomiting, blood present in stool. Patient states she has been unable to tolerate oral intake over the past 5 days. She reports diffuse, sharp abdominal pain throughout her abdomen. She reports multiple episodes of nausea and vomiting. She reports some blood present in her stool, no dark or tarry stools. No fever or chills. Patient has been unable to tolerate any steroids or medications. Patient follows with Dr. Rust, and has had multiple visits to this facility for abd pain, nausea and vomiting. Most recent visit was last week, patient sent home with increased steroid taper, but has been unable to tolerate this due to vomiting. Due to financial issues, pt unable to comply with recommended therapy. Related Data Home Medications Medication Instructions Recorded Confirmed fluoxetine 40 mg PO DAILY 08/12/19 01/12/20 lorazepam [Ativan] 1 mg PO TID PRN 08/12/19 01/12/20 pantoprazole 40 mg PO DAILY 08/12/19 01/12/20 quetiapine 200 mg PO BID 08/12/19 01/12/20 quetiapine 400 mg PO HS 08/12/19 01/12/20 Allergies Allergy/AdvReac Type Severity Reaction Status Date / Time acetaminophen Allergy Unknown Nausea Verified 02/09/20 15:37 hydrocodone Allergy Unknown Nausea Verified 02/09/20 15:37 metoclopramide Allergy Unknown Nausea and Verified 02/09/20 15:37 Vomiting nortriptyline Allergy Unknown Nausea and Verified 02/09/20 15:37 Vomiting Penicillins Allergy Unknown Nausea Verified 02/09/20 15:37 Sulfa (Sulfonamide Allergy Unknown Nausea and Verified 02/09/20 15:37 Antibiotics) Vomiting haloperidol [From Haldol] Allergy Swelling Verified 02/09/20 15:37 of Lip/Tongue/Throat levofloxacin [From Levaquin] Allergy Rash Verified 02/09/20 15:37 morphine AdvReac Nausea and Verified 02/09/20 15:37 Vomiting Review of Systems Review of Systems: Narrative: CONSTITUTIONAL: Denies fever, chills, or sweats. ENT: Denies rhinorrhea, congestion, sore throat, or otalgia. CARDIOVASCULAR: Denies chest pain, palpitations, or edema. RESPIRATORY: Denies cough or dyspnea. GASTROINTESTINAL: Reports abdominal pain, nausea, vomiting, blood present in stool GENITOURINARY: Denies dysuria or hematuria. SKIN: Denies rash or itching. MUSCULOSKELETAL: Denies back pain, joint pain, or myalgia. NEUROLOGIC: Denies headache, numbness, or weakness. [facility] Past Medical History Medical History (Updated 02/14/20 @ 22:39 by Joycelyn Perales MD) Abdominal pain Anemia Anxiety Asthma Bipolar disorder Bloody diarrhea Arielle esophagitis Depression Dizziness Headache History of adverse reaction to anesthesia Hypertension IBS (irritable bowel syndrome) Immune deficiency disorder Immunodeficiency disorder, selective immunoglobulin Latex allergy Marijuana abuse Nausea and vomiting in adult Seasonal allergies Stomach pain Ulcerative colitis Weight gain Surgical History Surgical History Hx of cholecystectomy Family History Family History Father Acute myocardial infarction Mother Emphysema lung Chronic obstructive pulmonary disease Bipolar 1 disorder Sibling Selective immunoglobulin deficiency 2 sisters and a brother have it and all three of her children have it. Other Arthritis Diabetes mellitus Heart disease Hypertension Malignant neoplasm Neuropathy Social History Social History Smoking status: Never smoker Smoking end date: 03/09/13 Alcohol
[2020-02-14] MEDS: ONDANSETRON INJ 4 MG/2 ML VIAL IV PUSH (21:18)
[2020-02-14] MEDS: HYDROmorphone HCL INJ (*CRX) 1 MG/ML SYR 0.5 MG IV PUSH ×2 (21:18→22:27)
[2020-02-14] MEDS: methylPREDNISolone SOD SUCC 125 MG VIAL IV PUSH (21:18)
[2020-02-14] MEDS: SODIUM CHLORIDE 0.9% IV 1,000 ML 999 ML IV CONT (21:18)
[2020-02-14 21:36] LABS: Add Urine Microscopic? YES; Appearance Urine Cloudy (Clear); Bacteria Urine Trace /hpf; Bilirubin Urine Negative (Negative); Blood Urine Negative (Negative); Color Urine Yellow (Yellow); Glucose Urine UA Negative (Negative); Ketones Urine Negative (Negative); Leukocyte Esterase Ur 3+ LEU/UL (Negative); Mucus Urine Rare /lpf; Nitrate Urine Negative (Negative); Protein Urine 1+ mg/dL (Negative); Specific Grav Ur 1.023 (1.001-1.035); Squamous Epithelial Cell Urine Many /hpf (Few); Urobilinogen Urine Negative mg/dL (<2.0); WBC Urine 51-75 /hpf
[2020-02-14] MEDS: FAMOTIDINE 20 MG/2 ML VIAL IV PUSH (22:31)
[2020-02-14] MEDS: METOCLOPRAMIDE HCL INJ 10 MG/2 ML VIAL IV PUSH (22:34)
[2020-02-14 23:30] VITALS: BP 129/77; PULSE 94; RESP 18; O2SAT 96
--- NOTE | 2020-02-14 23:35 | PM.IMHP ---
H&P: HPI History of Present Illness Date/Time: 02/14/20 23:35 Chief complaint: Abdominal pain, nausea and vomiting Narrative: This is a 24 year old female with known ulcerative colitis, ileitis, IgG deficiency, and Arielle esophagitis who presented to the ER tonight for a return visit for ongoing diffuse abdominal pain, nausea, and vomiting. She believes that she has been having an inflammatory bowel flare since December and describes having to only eat very small amounts of food or else she will immediately get nauseated and vomit. She has been vomiting 12-15 times daily. She also reports blood tinged emesis. She denies any fevers, chills, blood stools, black stools, chest pain, cough, shortness of breath, headache, diarrhea, or LE swelling. She has not been able to take oral medications. The patient also reported that she has not been able to get her home medications due to financial reasons. CT abd/pelvis was obtained which did not demonstrate any acute pathology. The patient has been treated with IV solumedrol, IV fluids, and antiemetics. Gastroenterology has been consulted by ER provider. Urinalysis was abnormal although the patient has not had any urinary symptoms. Review of Systems Review of Systems: All systems reviewed & are unremarkable except as noted in HPI and below PMFSH Past Medical History Medical History Abdominal pain Anemia Anxiety Asthma Bipolar disorder Bloody diarrhea Arielle esophagitis Depression Dizziness Headache History of adverse reaction to anesthesia Hypertension IBS (irritable bowel syndrome) Immune deficiency disorder Immunodeficiency disorder, selective immunoglobulin Latex allergy Marijuana abuse Nausea and vomiting in adult Seasonal allergies Stomach pain Ulcerative colitis Weight gain Surgical History Surgical History Hx of cholecystectomy Family History Family History Father Acute myocardial infarction Mother Emphysema lung Chronic obstructive pulmonary disease Bipolar 1 disorder Sibling Selective immunoglobulin deficiency 2 sisters and a brother have it and all three of her children have it. Other Arthritis Diabetes mellitus Heart disease Hypertension Malignant neoplasm Neuropathy Social History Social History Smoking status: Never smoker Smoking end date: 03/09/13 Alcohol intake: never Substance use: current Substance use type: marijuana Gender identity (if verbalized by the patient): Female Spiritual care concerns: No Meds Home Medications and Allergies Home Medications Medication Instructions Recorded Confirmed Type fluoxetine 40 mg PO DAILY 08/12/19 01/12/20 History lorazepam [Ativan] 1 mg PO TID PRN 08/12/19 01/12/20 History pantoprazole 40 mg PO DAILY 08/12/19 01/12/20 History quetiapine 200 mg PO BID 08/12/19 01/12/20 History quetiapine 400 mg PO HS 08/12/19 01/12/20 History nystatin 5 ml PO QID 5 Days #100 ml 08/15/19 01/12/20 Rx ondansetron HCl [Zofran] 4 mg PO Q8H #7 tablet 08/15/19 01/12/20 Rx oxycodone-acetaminophen 1 tablet PO Q6H PRN #7 tablet 11/12/19 01/12/20 Rx lidocaine HCl [Lidocaine Viscous] 1 applic MUCOUS MEMBRANE QID PRN 01/04/20 01/12/20 Rx #100 ml prednisone 5 mg tablet 25 mg PO DAILY 60 Days #300 tablet 01/12/20 01/12/20 Rx ondansetron 4 mg PO Q8H PRN #14 tablet 02/09/20 Rx Allergies Allergy/AdvReac Type Severity Reaction Status Date / Time acetaminophen Allergy Unknown Nausea Verified 02/09/20 15:37 hydrocodone Allergy Unknown Nausea Verified 02/09/20 15:37 metoclopramide Allergy Unknown Nausea and Verified 02/09/20 15:37 Vomiting nortriptyline Allergy Unknown Nausea and Verified 02/09/20 15:37 Vomiting Penicillins Allergy Unknown Nausea Verified 02/09/20 15:37 Sul
--- NOTE | 2020-02-15 00:25 | ADMGEN ---
This patient, Regino Calvillo, was admitted to Medical Room 349-01. Patient/family oriented to hospital policies and general routines including ID bracelet, bed and alarms, visiting hours, pain management, procedures, bathroom and other care routines, personal items, smoking policy, room service/diet, and visiting hours. Information on how to activate the Rapid Response Team has been discussed. Patient/Family are encouraged to report perceived risks to care and to ask questions if they do not understand what they are told or what they should do.
[2020-02-15 00:27] VITALS: BP 123/73; PULSE 97; RESP 16; TEMP 36.2; O2SAT 96
[2020-02-15] MEDS: SODIUM CHLORIDE 0.9% IV 1,000 ML 125 ML IV CONT ×4 (00:27→22:56)
[2020-02-15 00:28] VITALS: BP 129/77; PULSE 94; RESP 18; O2SAT 96; BMI 21.3
[2020-02-15] MEDS: HYDROmorphone HCL INJ (*CRX) 1 MG/ML SYR 0.5 MG IV PUSH ×5 (00:30→14:01)
[2020-02-15 00:47] VITALS: BMI 21.3
[2020-02-15 04:14] VITALS: BP 123/55; PULSE 94; RESP 18; TEMP 36.1; O2SAT 99
[2020-02-15 05:58] LABS: Basophils Percent Auto 0.2 % (0.2-1.2); Hematocrit 37.1 % (37.0-47.0); Hemoglobin 12.5 g/dL (12.0-15.0); Immature Granulocyte Absolute 0.03 K/mm3 (0.00-0.031); Immature Granulocyte Percent A 0.4 % (0-0.5); Lymphocytes Absolute Auto 0.63 K/mm3 (0.9-3.2); Lymphocytes Percent Auto 7.9 % (18.3-44.2); Mean Corpuscular HGB Conc 33.7 g/dl (32-36); Mean Corpuscular Hemoglobin 29.7 pg (26-34); Mean Corpuscular Volume 88.1 fl (80-100); Mean Platelet Volume 9.9 fl (7.4-10.4); Monocytes Percent Auto 0.4 % (2.6-8.5); Neutrophils Absolute Auto 7.3 K/mm3 (1.3-6.7); Neutrophils Percent Auto 91.1 % (45.5-73.1); Platelet Count Result 227 k/mm3 (150-375); Red Blood Count 4.21 M/mm3 (4.2-5.4); Red Cell Distribution Width 14.6 % (11.5-14.5)
[2020-02-15 06:07] LABS: Anion Gap 4 mmol/L (8-16); Blood Urea Nitrogen 8 mg/dL (7-17); Calcium 8.5 mg/dL (8.4-10.2); Carbon Dioxide 24 mmol/L (22-30); Chloride 106 mmol/L (98-107); Estimated CRCL calculation 133 ml/min; Estimated Glomerular Filt Rate > 60; Glucose 133 mg/dL (65-105); Potassium 4.8 mmol/L (3.4-5.0); Sodium 134 mmol/L (137-145)
--- NOTE | 2020-02-15 08:50 | PC.NURSE ---
call to IV therapy nurse to obtain additional IV access
[2020-02-15] MEDS: ONDANSETRON INJ 4 MG/2 ML VIAL IV PUSH ×2 (08:58→14:02)
[2020-02-15] MEDS: FAMOTIDINE 20 MG/2 ML VIAL IV PUSH ×2 (08:58→21:22)
--- NOTE | 2020-02-15 11:25 | WPDGICN ---
Assessment and Plan Assessment and plan (1) Intractable nausea and vomiting: Code(s): R11.2 - Nausea with vomiting, unspecified Status: Acute (2) Ulcerative colitis: Qualifiers: Ulcerative colitis location: unspecified ulcerative colitis location Digestive disease complication type: unspecified complication Qualified Code(s): K51.919 - Ulcerative colitis, unspecified with unspecified complications Code(s): K51.90 - Ulcerative colitis, unspecified, without complications Status: Acute Assessment and Plan: Review of records it appears patient has ulcerative colitis. Apparently intolerant or allergic to Pentasa. Plan is for IV steroids initially. A TPMT level will be obtained to see if Imuran may be of any benefit. Patient is currently in the process of getting approved for biologic therapy. Dr. Barrera Collier has seen the patient will return tomorrow and resume care. (3) Immune deficiency disorder: Code(s): D84.9 - Immunodeficiency, unspecified Status: Chronic (4) Marijuana abuse: Code(s): F12.10 - Cannabis abuse, uncomplicated Status: Chronic (5) Bipolar disorder: Qualifiers: Active/Remission status: remission status unspecified Qualified Code(s): F31.9 - Bipolar disorder, unspecified Code(s): F31.9 - Bipolar disorder, unspecified Status: Chronic GI Consult Note Consult date/time: 02/15/20 11:25 HPI: Regino Calvillo is a 24 year old female I am asked to see in Dr. Rust is absence. Patient was identified as having ulcerative colitis by colonoscopy earlier this spring. She apparently was intolerant had an allergy to Pentasa form of mesalamine. Patient was prescribed Entivio. But has had financial difficulties obtaining this medication. Patient subsequently has been on no medications for her ulcerative colitis. Patient has had ongoing but intermittent bouts of nausea vomiting diarrhea. Occasional bright red blood per stool that she attributes either to her colitis or hemorrhoids. At the time of her diagnosis an EGD was also performed which revealed Arielle esophagitis felt secondary to steroids. Because of ongoing symptoms she presented to the emergency room last night was admitted to the hospital. I am seeing the patient has Dr. Fierro is out of town. Review of Systems Review of Systems: All systems reviewed & are unremarkable except as noted in HPI and below PMFSH Past Medical History Medical History Abdominal pain Anemia Anxiety Asthma Bipolar disorder Bloody diarrhea Arielle esophagitis Depression Dizziness Headache History of adverse reaction to anesthesia Hypertension IBS (irritable bowel syndrome) Immune deficiency disorder Immunodeficiency disorder, selective immunoglobulin Latex allergy Marijuana abuse Nausea and vomiting in adult Seasonal allergies Stomach pain Ulcerative colitis Weight gain Surgical History Surgical History Hx of cholecystectomy Family History Family History Father Acute myocardial infarction Mother Emphysema lung Chronic obstructive pulmonary disease Bipolar 1 disorder Sibling Selective immunoglobulin deficiency 2 sisters and a brother have it and all three of her children have it. Other Arthritis Diabetes mellitus Heart disease Hypertension Malignant neoplasm Neuropathy Social History Social History Smoking status: Former smoker Tobacco type: cigarettes Smoking end date: 03/09/13 Alcohol intake: never Substance use: current Substance use type: marijuana Gender identity (if verbalized by the patient): Female Spiritual care concerns: No Meds Home Medications and Allergies Home Medications Medic
[2020-02-15 11:31] VITALS: BMI 21.3
--- NOTE | 2020-02-15 12:32 | PM.IMPN ---
Progress Note: A&P Assessment and Plan (1) Intractable nausea and vomiting: Code(s): R11.2 - Nausea with vomiting, unspecified Status: Acute Assessment and Plan: The patient has been placed in observation status. NPO overnight and morning, advanced to Clear liquid diet this evening. Antiemetics as needed. Zofran PRN Continue IV fluids. Benadryl and Capascin added. will send urine for Trichamonasis analysis - if possible. appreciate GI consultation and recommendations (2) Ulcerative colitis: Qualifiers: Digestive disease complication type: unspecified complication Ulcerative colitis location: unspecified ulcerative colitis location Qualified Code(s): K51.919 - Ulcerative colitis, unspecified with unspecified complications Code(s): K51.90 - Ulcerative colitis, unspecified, without complications Status: Acute Assessment and Plan: r/o acute ulcerative colitis flare and this is likely secondary to nonadherence to her medications. Continue solumedrol. continue rocephin and flagyl Gastroenterology has been consulted by ER provider. Appreciate GI input. GI checking TPMT level. strict I and O (3) Abnormal urinalysis: Code(s): R82.90 - Unspecified abnormal findings in urine Status: Acute Assessment and Plan: Urine culture pending. She has no urinary symptoms. We will consider treating w/ antibiotics if her urine culture is positive. 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 prone to infections of those sites then Additional Plan Date of service was 02/15/2020 Subjective Date/time seen: 02/15/20 12:32 Patient resting on her left side when I went to see her and examine her. She just had labs drawn and stated that she felt nauseated. She was able to lay on her back for my examination. She denied any pain to palpation but said that when her abdominal pain came on at its worst it would be mid upper abdomen above her umbilical region. She said that the only thing that seemed to improve her pain at home was if she crushed her oxycodone and to get that way. She said the 1 thing that made her pain worse consistently, was eating a all of a full meal, then the pressure would become too painful. She also stated that when she has these exacerbations, she feels like her abdomen is bloated and distended as if . At the end of my examination she was able to turn back on her left side. She did admit to using marijuana throughout many years. She stated she did not use it during . But has used marijuana since in attempts to treat her nausea, vomiting. Regino did agree to using Capsicin cream topically, receiving Zofran to help her take her oral medications, and then treating the post-administration pain with a dose of dilaudid. She was refusing all oral medications until that time, including her Psych medications. I have also ordered IV Benadryl as this can sometimes calm the cyclic vomiting/hyperemesis cycle. Will continue IVF hydration, kept her NPO this morning and changed to Clear Liquid Diet this evening. Patient has had NO vomiting or diarrhea or retching for the nursing staff this morning or afternoon. She complained of acid reflux, continued IV pepcid/protonix. She shou
--- NOTE | 2020-02-15 13:56 | PC.NURSE ---
order was to give PO meds after dose of dilaudid and after capsaicin cream applied, just arrived from pharmacy
[2020-02-15 14:00] VITALS: BP 112/70; PULSE 92; RESP 18; TEMP 36.6; O2SAT 97
[2020-02-15] MEDS: CAPSAICIN 0.025% CREAM 60 GM TUBE 1 APPLIC TOPICAL (14:00)
[2020-02-15] MEDS: FLUoxetine HCL 20 MG CAPSULE 40 MG PO (14:00)
[2020-02-15] MEDS: QUEtiapine FUMARATE 100 MG TABLET 200 MG PO (14:00)
[2020-02-15] MEDS: methylPREDNISolone SOD SUCC 40 MG VIAL IV PUSH ×2 (14:02→21:22)
--- NOTE | 2020-02-15 14:22 | PC.NURSE ---
meds administered per provider order, PO meds given with dilaudid and zofran, pt agreeable to taking them with the IV meds, cream applied to abdomen, VS taken per Q8 hour schedule as ordered, will allow pt to rest
[2020-02-15] MEDS: diphenhydrAMINE HCl INJ 50 MG/ML VIAL IV PUSH (16:56)
[2020-02-15] MEDS: LORazepam INJ (*CRX) 2 MG/ML VIAL 0.5 MG IV PUSH (17:13)
--- NOTE | 2020-02-15 19:36 | PCDIET ---
pt's sent in [employer] type bag with 2 bottles of drinks and clothing and hygiene supplies, I advised pt that she was still NPO and I would gladly put the drinks in the refrigerator for her, she stated that he probably brought those in case she could have them in the morning, I stated that she possibly could have them in the morning. she agreed and I placed them in the fridge
--- NOTE | 2020-02-15 19:41 | PC.NURSE ---
returned drinks to pt, reviewed plan of care and new order
[2020-02-15 20:15] VITALS: BP 126/53; PULSE 88; RESP 14; TEMP 36.6; O2SAT 97
[2020-02-15] MEDS: QUEtiapine FUMARATE 100 MG TABLET 400 MG PO (21:22)
[2020-02-16] MEDS: LORazepam INJ (*CRX) 2 MG/ML VIAL 0.5 MG IV PUSH ×2 (03:29→11:09)
[2020-02-16] MEDS: methylPREDNISolone SOD SUCC 40 MG VIAL IV PUSH ×2 (05:27→14:03)
[2020-02-16 05:29] VITALS: BP 118/50; PULSE 99; RESP 16; TEMP 36.3; O2SAT 98
[2020-02-16] MEDS: SODIUM CHLORIDE 0.9% IV 1,000 ML 125 ML IV CONT ×2 (07:17→14:02)
--- NOTE | 2020-02-16 08:40 | PM.IMPN ---
Progress Note: A&P Assessment and Plan (1) Intractable nausea and vomiting: Code(s): R11.2 - Nausea with vomiting, unspecified Status: Acute Assessment and Plan: Patient will be changed from observation to inpatient per GI plan NPO advanced to Clear liquid and recently advanced to soft and bland diet for lunch. Antiemetics as needed. Zofran PRN Continue IV fluids. Benadryl and Capascin and lidocaine patches added. Checking CRP level, found to be less than 0.5 appreciate GI consultation and recommendations improved, eating more less bloating, better controlled pain (2) Ulcerative colitis: Qualifiers: Digestive disease complication type: unspecified complication Ulcerative colitis location: unspecified ulcerative colitis location Qualified Code(s): K51.919 - Ulcerative colitis, unspecified with unspecified complications Code(s): K51.90 - Ulcerative colitis, unspecified, without complications Status: Acute Assessment and Plan: r/o acute ulcerative colitis flare and this is may be secondary to nonadherence to her medications. continue rocephin and flagyl Appreciate GI input. GI checking TPMT level. strict I and O cbc normal, also esr but symptomatic and she is not on any treatment (could not tolerate pentasa) tomorrow she is going to talk to financial sales assistant regarding entyvio and hopefully will get approved as outpatient (currently unable to afford copay)- if after that phone call she still cant afford it then we can try humira instead in the meantime continue with iv steroids, probably tomorrow can switch to oral prednisone with slow taper (40mg daily to decrease 5mg every week) and pain killers as needed and home if feeling better (3) Abnormal urinalysis: Code(s): R82.90 - Unspecified abnormal findings in urine Status: Acute Assessment and Plan: Urine culture pending. She has no urinary symptoms. We will consider treating w/ antibiotics if her urine culture is positive. 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 prone to infections of those sites then (6) Abdominal pain: Qualifiers: Abdominal location: generalized Qualified Code(s): R10.84 - Generalized abdominal pain Code(s): R10.9 - Unspecified abdominal pain Status: Acute Assessment and Plan: See above plan for nausea vomiting and ulcerative colitis (7) Bipolar disorder: Qualifiers: Active/Remission status: remission status unspecified Qualified Code(s): F31.9 - Bipolar disorder, unspecified Code(s): F31.9 - Bipolar disorder, unspecified Status: Chronic Assessment and Plan: Continue home medications including Ativan, fluoxetine, quetiapine Additional Plan Date of service was 02/16/2020 Subjective Date/time seen: 02/16/20 08:40 Patient tolerating clear liquid diet and wants to advance diet further. Patient also admits that her abdomen looks and feels slightly less distended. Will be restarting her oral Percocet to see if that helps with pain control and try to avoid IV Dilaudid for further severe pain. There are other interventions p.r.n. that can help with comfort as well. Dr. Rust is working to get patient into specialized outpatient ulcerative
[2020-02-16 08:52] LABS: Hematocrit 37.9 % (37.0-47.0); Hemoglobin 12.7 g/dL (12.0-15.0); Mean Corpuscular HGB Conc 33.5 g/dl (32-36); Mean Corpuscular Hemoglobin 29.5 pg (26-34); Mean Corpuscular Volume 88.1 fl (80-100); Mean Platelet Volume 9.8 fl (7.4-10.4); Platelet Count Result 230 k/mm3 (150-375); White Blood Count 8.4 K/mm3 (4.5-10.0)
[2020-02-16 09:06] LABS: Anion Gap 5 mmol/L (8-16); Blood Urea Nitrogen 8 mg/dL (7-17); Calcium 8.8 mg/dL (8.4-10.2); Carbon Dioxide 24 mmol/L (22-30); Chloride 108 mmol/L (98-107); Estimated CRCL calculation 133 ml/min; Estimated Glomerular Filt Rate > 60; Glucose 140 mg/dL (65-105); Potassium 4.3 mmol/L (3.4-5.0); Sodium 137 mmol/L (137-145)
[2020-02-16 09:09] LABS: CRP < 0.5 mg/dL (<1.0)
[2020-02-16] MEDS: PANTOPRAZOLE SODIUM IV 40 MG VIAL IV PUSH (09:10)
[2020-02-16] MEDS: FAMOTIDINE 20 MG/2 ML VIAL IV PUSH (09:10)
[2020-02-16] MEDS: LIDOCAINE 5% PATCH 2 PATCH TRANSDERM (09:11)
[2020-02-16] MEDS: QUEtiapine FUMARATE 100 MG TABLET 200 MG PO ×2 (09:11→11:09)
--- NOTE | 2020-02-16 09:11 | PC.NURSE ---
call to pharm for missing dose of prozac
[2020-02-16] MEDS: oxyCODONE/ACETAMINOPHEN (*CRX) 5-325 MG TABLET 1 TABLET PO ×2 (09:21→15:37)
[2020-02-16] MEDS: FLUoxetine HCL 20 MG CAPSULE 40 MG PO (10:11)
[2020-02-16 15:11] VITALS: BP 123/49; PULSE 100; RESP 15; TEMP 35.8; O2SAT 100
--- NOTE | 2020-02-16 15:24 | WPDGIPROGNO ---
Progress Note: A&P Assessment and Plan (1) Ulcerative colitis: Qualifiers: Digestive disease complication type: unspecified complication Ulcerative colitis location: unspecified ulcerative colitis location Qualified Code(s): K51.919 - Ulcerative colitis, unspecified with unspecified complications Code(s): K51.90 - Ulcerative colitis, unspecified, without complications Status: Acute Assessment and Plan: cbc normal, also esr but symptomatic and she is not on any treatment (could not tolerate pentasa) tomorrow she is going to talk to financial associate regarding entyvio and hopefully will get approved as outpatient (currently unable to afford copay)- if after that phone call she still cant afford it then we can try humira instead in the meantime continue with iv steroids, probably tomorrow can switch to oral prednisone with slow taper (40mg daily to decrease 5mg every week) and pain killers as needed and home if feeling better (2) Intractable nausea and vomiting: Code(s): R11.2 - Nausea with vomiting, unspecified Status: Acute Assessment and Plan: improved, eating more (3) Abdominal pain: Qualifiers: Abdominal location: generalized Qualified Code(s): R10.84 - Generalized abdominal pain Code(s): R10.9 - Unspecified abdominal pain Status: Acute (4) Bipolar disorder: Qualifiers: Active/Remission status: remission status unspecified Qualified Code(s): F31.9 - Bipolar disorder, unspecified Code(s): F31.9 - Bipolar disorder, unspecified Status: Chronic Subjective Date/time seen: 02/16/20 15:24 Interval history: abdominal pain better after using percocet, also able to tolerate diet for the first day Review of Systems Review of Systems: All systems reviewed & are unremarkable except as noted in HPI and below Exam Const: General: comfortable and no acute distress HENMT: General nose exam: Normal nares present Eyes: Pupils: Equal, round and reactive pupils present Neck: Neck: supple Resp: Auscultation: clear to auscultation bilaterally Cardio: Rate: regular rate GI: Inspection: non-distended GI Palp: Yes Soft to palpation and No Firmness to palpation present (GI) Auscultation: normal bowel sounds Skin: General skin exam: normal color Neuro: Speech: normal speech Extrem: General: normal to inspection Psych: Affect: Anxious affect present Objective Data Vital Signs Vital Signs: Vital Signs - 24 hr 02/15/20 20:15 02/16/20 05:29 02/16/20 15:11 Temperature 97.8 F 97.4 F L 96.4 F L Pulse Rate 88 99 100 Respiratory Rate 14 16 15 Blood Pressure 126/53 L 118/50 L 123/49 L Pulse Oximetry 97 98 100 Intake/Output Intake/Output: Intake & Output 02/13/20 02/14/20 02/15/20 02/16/20 23:59 23:59 23:59 23:59 Intake Total 3000 2840 Output Total 1900 2000 Balance 1100 840 Meds/Results Medications: Active Medications Generic Name Dose Route Start Last Admin Trade Name Freq PRN Reason Stop Dose Admin Capsaicin 1 applic 02/16/20 08:47 Capsaicin 0.025% Cream 60 Gm Tube TOPICAL Q6H PRN Muscle/Joint Pain Dicyclomine HCl 20 mg 02/14/20 22:49 Dicyclomine Hcl Inj 20 Mg/2 Ml Vial IM Q6H PRN Abdominal Cramping Diphenhydramine HCl 50 mg 02/15/20 14:59 02/15/20 16:56 Diphenhydramine Hcl Inj 50 Mg/Ml Vial IV PUSH 50 mg Q6H PRN Administration Insomnia Famotidine 20 mg 02/15/20 11:00 02/16/20 09:10 Famotidine 20 Mg/2 Ml Vial IV PUSH 20 mg Q12HR CHOLO Administration Fluoxetine HCl 40 mg 02/15/20 11:00 02/16/20 10:11 Fluoxetine Hcl 20 Mg Capsule PO 40 mg DAILY CHOLO Administration Sodium Chloride 1,000 mls @ 125 mls/hr 02/14/20 22:50 02/16/20 14:02 Normal Saline Iv IV CONT 125 mls/hr .Q8H CHOLO Administration Lidocaine 2 patch 02/16/20 09:00 02/16/20 09:11 Lidocaine 5% Patch TRANSDERM 2 patch DAILY CHOLO Administration Lo
--- NOTE | 2020-02-16 17:09 | PM.DS ---
DS: Admitting Diagnosis Admitting Diagnosis Admitting Diagnosis: Abdominal pain, nausea and vomiting DS: Discharge Diagnosis Discharge Diagnosis (1) Intractable nausea and vomiting: Code(s): R11.2 - Nausea with vomiting, unspecified Status: Acute Assessment and Plan: Patient will be changed from observation to inpatient per GI plan NPO advanced to Clear liquid and recently advanced to soft and bland diet for lunch. Antiemetics as needed. Zofran PRN Continue IV fluids. Benadryl and Capascin and lidocaine patches added. Checking CRP level, found to be less than 0.5 appreciate GI consultation and recommendations improved, eating more less bloating, better controlled pain (2) Ulcerative colitis: Qualifiers: Digestive disease complication type: unspecified complication Ulcerative colitis location: unspecified ulcerative colitis location Qualified Code(s): K51.919 - Ulcerative colitis, unspecified with unspecified complications Code(s): K51.90 - Ulcerative colitis, unspecified, without complications Status: Acute Assessment and Plan: r/o acute ulcerative colitis flare and this is may be secondary to nonadherence to her medications. continue rocephin and flagyl Appreciate GI input. GI checking TPMT level. strict I and O cbc normal, also esr but symptomatic and she is not on any treatment (could not tolerate pentasa) tomorrow she is going to talk to manager of financial planning regarding entyvio and hopefully will get approved as outpatient (currently unable to afford copay)- if after that phone call she still cant afford it then we can try humira instead in the meantime continue with iv steroids, probably tomorrow can switch to oral prednisone with slow taper (40mg daily to decrease 5mg every week) and pain killers as needed and home if feeling better Both GI and patient decided upon discharge now as patient has improved enough to tolerate meals and be discharged home with pain controlled, discharged on prednisone with taper as described in discharge and patient expected to follow-up with Dr. Rust as also described in discharge instructions. (3) Abnormal urinalysis: Code(s): R82.90 - Unspecified abnormal findings in urine Status: Acute Assessment and Plan: Urine culture pending. She has no urinary symptoms. We will consider treating w/ antibiotics if her urine culture is positive. 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 prone to infections of those sites then (6) Abdominal pain: Qualifiers: Abdominal location: generalized Qualified Code(s): R10.84 - Generalized abdominal pain Code(s): R10.9 - Unspecified abdominal pain Status: Acute Assessment and Plan: See above plan for nausea vomiting and ulcerative colitis (7) Bipolar disorder: Qualifiers: Active/Remission status: remission status unspecified Qualified Code(s): F31.9 - Bipolar disorder, unspecified Code(s): F31.9 - Bipolar disorder, unspecified Status: Chronic Assessment and Plan: Continue home medications including Ativan, fluoxetine, quetiapine DS: Summary Time Spent with Patient Time attestation: Total time spent providing and/or coordinating discharge
[2020-02-25 10:45] LABS: TPMT Activity 17
== END 2020-02-16 18:20 | disposition home or self-care (01) ==
LOC: ANHED 22:39 → ANH3MED 23:24
PROVIDERS: Internal Medicine Gastroenterology; Admitting Provider Family Medicine; Emergency Provider Emergency Medicine; PCP Nurse Practitioner Family; Visit Provider Nurse Practitioner
DX: K51.919 Ulcerative colitis, unspecified with unspecified complications (principal); R11.2 Nausea with vomiting, unspecified; R82.90 Unspecified abnormal findings in urine; D84.9 Immunodeficiency, unspecified; F12.10 Cannabis abuse, uncomplicated; F31.9 Bipolar disorder, unspecified; R10.84 Generalized abdominal pain; B37.81 Candidal esophagitis; Z87.891 Personal history of nicotine dependence
CPT/HCPCS: 36415; 74177; 80048; 80053; 81001; 81025; 82657; 83690; 85025; 85027; 86140; 87086; 87088; 96361; 96374; 96375; 96376; 99285; A9270; C9113; G0378; J1170; J1200; J2060; J2405; J2765; J2920; J2930; J7030; Q9967

== ENCOUNTER 2020-03-04 19:56 | Inpatient (IN) | payer OTHER, MEDICAID, SELFPAY ==
--- NOTE | ~2020-03-04 | CT_ITS ---
EXAMINATION: CT abdomen pelvis wo con DATE: 03/05/2020 15:25 INDICATION: Abdominal pain, ulcerative colitis TECHNIQUE: Computed tomography (CT) of the abdomen and pelvis was performed without intravenous contr ast. The dose-length product (DLP) was 456.93 mGy-cm. Automated exposure control and iterative recons truction technique were employed. COMPARISON: 02/14/2020 FINDINGS: Stable nodules of the lower lobes are consistent with old granulomatous disease. The heart size is normal. The gallbladder is surgically absent. The liver, spleen, pancreas, and adrenal glands are normal. The kidneys are unremarkable. No pathologically enlarged abdominal or pelvic lymph nodes are identified. There is no free intraperitoneal gas or evidence of bowel obstruction. A moderate vo lume of colonic stool is present. No specific findings of ulcerative colitis are identified on this n oncontrast examination. The appendix is normal. IMPRESSION: 1. No CT correlate for the patient's symptoms. Reviewed, dictated and finalized at location A. ORATE CONTROLLER
[2020-03-04 19:58] VITALS: BP 124/87; PULSE 117; RESP 18; TEMP 35.9; O2SAT 100
[2020-03-04 20:26] LABS: Add Urine Microscopic? YES; Appearance Urine Cloudy (Clear); Bacteria Urine Trace /hpf; Bilirubin Urine Negative (Negative); Blood Urine 2+ (Negative); Color Urine Yellow (Yellow); Glucose Urine UA Negative (Negative); Ketones Urine Negative (Negative); Leukocyte Esterase Ur 3+ LEU/UL (Negative); Mucus Urine Moderate /lpf; Nitrate Urine Negative (Negative); Protein Urine 2+ mg/dL (Negative); Specific Grav Ur 1.027 (1.001-1.035); Squamous Epithelial Cell Urine Many /hpf (Few); WBC Urine 21-30 /hpf
[2020-03-04 20:47] VITALS: BP 122/100; PULSE 111; RESP 20; O2SAT 100
--- NOTE | 2020-03-04 20:52 | ED.ABDPAIN ---
HPI - Abdominal Pain General Chief Complaint: Abdominal Pain Stated Complaint: abd pain, vomiting Time Seen by Provider: 03/04/20 20:32 History of Present Illness HPI narrative: 24 yo female w/ h/o UC presents to the ED for abdominal pain, nausea, vomiting. She was hospitalized here earlier this month for a UC flare. She was started on flagyl, ceftriaxone, and solu-medrol. She went home on 02/15 She reports that she was feeling better for a few days, but for the past 10-12 days her symtposm have been back and she has not been able t keep down her medications. Related Data Home Medications Medication Instructions Recorded Confirmed quetiapine 200 mg PO BID 08/12/19 02/15/20 quetiapine 400 mg PO HS 08/12/19 02/15/20 Allergies Allergy/AdvReac Type Severity Reaction Status Date / Time acetaminophen Allergy Unknown Nausea Verified 03/04/20 20:48 hydrocodone Allergy Unknown Nausea Verified 03/04/20 20:48 metoclopramide Allergy Unknown Nausea and Verified 03/04/20 20:48 Vomiting nortriptyline Allergy Unknown Nausea and Verified 03/04/20 20:48 Vomiting Penicillins Allergy Unknown Nausea Verified 03/04/20 20:48 Sulfa (Sulfonamide Allergy Unknown Nausea and Verified 03/04/20 20:48 Antibiotics) Vomiting haloperidol [From Haldol] Allergy Swelling Verified 03/04/20 20:48 of Lip/Tongue/Throat levofloxacin [From Levaquin] Allergy Rash Verified 03/04/20 20:48 morphine AdvReac Nausea and Verified 03/04/20 20:48 Vomiting Review of Systems Review of Systems: All systems reviewed & are unremarkable except as noted in HPI and below Constitutional: Constitutional: Denies fever(s) Cardiovascular: Cardiovascular: Denies chest pain Respiratory: Respiratory: Denies cough and Denies dyspnea Gastrointestinal: Gastrointestinal: Reports abdominal pain, Reports diarrhea, Reports nausea and Reports vomiting Genitourinary: Genitourinary: Denies dysuria Musculoskeletal: Musculoskeletal: Denies back pain Neurologic: Reports dizziness and Reports weakness PMFSH Past Medical History Medical History Abdominal pain Anemia Anxiety Asthma Bipolar disorder Bloody diarrhea Arielle esophagitis Depression Dizziness Headache History of adverse reaction to anesthesia Hypertension IBS (irritable bowel syndrome) Immune deficiency disorder Immunodeficiency disorder, selective immunoglobulin Latex allergy Marijuana abuse Nausea and vomiting in adult Seasonal allergies Stomach pain Ulcerative colitis Weight gain Surgical History Surgical History Hx of cholecystectomy Family History Family History Father Acute myocardial infarction Mother Emphysema lung Chronic obstructive pulmonary disease Bipolar 1 disorder Sibling Selective immunoglobulin deficiency 2 sisters and a brother have it and all three of her children have it. Other Arthritis Diabetes mellitus Heart disease Hypertension Malignant neoplasm Neuropathy Social History Social History Smoking status: Former smoker Tobacco type: cigarettes Smoking end date: 03/09/13 Alcohol intake: never Substance use: current Substance use type: marijuana Living arrangements: with family Additional living arrangements comments: Lives with Gender identity (if verbalized by the patient): Female Spiritual care concerns: No Exam Const: General: healthy appearing, no acute distress and alert Orientation/consciousness: patient oriented x3 HENMT: Head: normal to inspection Neck: Neck: normal visual inspection and no lymphadenopathy Chest: Chest palpation & inspection: no tenderness Resp: Effort & Inspection: normal respiratory effort Auscultation: clear to auscultation bilaterally,
--- NOTE | 2020-03-04 21:02 | PC.NURSE ---
IV and blood draw attempt x3, unsuccessful. IV being placed by US.
[2020-03-04] MEDS: fentaNYL CITRATE INJ (*CRX) 100 MCG/2 ML VIAL 50 MCG IV PUSH (21:15)
[2020-03-04] MEDS: SODIUM CHLORIDE 0.9% IV 1,000 ML 999 ML IV CONT (21:16)
[2020-03-04] MEDS: ONDANSETRON INJ 4 MG/2 ML VIAL IV PUSH (21:16)
[2020-03-04 21:20] LABS: Basophils Percent Auto 0.6 % (0.2-1.2); Eosinophils Absolute Auto 0.1 K/mm3 (0-0.3); Eosinophils Percent Auto 1.9 % (0-4.4); Hematocrit 37.3 % (37.0-47.0); Hemoglobin 12.6 g/dL (12.0-15.0); Immature Granulocyte Absolute 0.01 K/mm3 (0.00-0.031); Immature Granulocyte Percent A 0.2 % (0-0.5); Lymphocytes Absolute Auto 2.14 K/mm3 (0.9-3.2); Lymphocytes Percent Auto 34.5 % (18.3-44.2); Mean Corpuscular HGB Conc 33.8 g/dl (32-36); Mean Corpuscular Hemoglobin 29.3 pg (26-34); Mean Corpuscular Volume 86.7 fl (80-100); Mean Platelet Volume 9.9 fl (7.4-10.4); Monocytes Absolute Auto 0.5 K/mm3 (0.1-0.6); Monocytes Percent Auto 8.7 % (2.6-8.5); Neutrophils Absolute Auto 3.4 K/mm3 (1.3-6.7); Neutrophils Percent Auto 54.1 % (45.5-73.1); Platelet Count Result 232 k/mm3 (150-375); Red Cell Distribution Width 14.6 % (11.5-14.5); White Blood Count 6.2 K/mm3 (4.5-10.0)
[2020-03-04 21:21] VITALS: BP 133/87; PULSE 98; RESP 11; O2SAT 98
[2020-03-04 21:49] LABS: Alanine Aminotransferase 9 U/L (4-35); Albumin Level 3.7 g/dL (3.5-5.1); Alkaline Phosphatase 57 U/L (38-126); Anion Gap 6 mmol/L (8-16); Aspartate Amino Transferase 18 U/L (14-36); Bilirubin,Total 0.3 mg/dL (0.2-1.3); Blood Urea Nitrogen 14 mg/dL (7-17); Calcium 8.6 mg/dL (8.4-10.2); Carbon Dioxide 29 mmol/L (22-30); Chloride 105 mmol/L (98-107); Estimated CRCL calculation 98 ml/min; Estimated Glomerular Filt Rate > 60; Glucose 110 mg/dL (65-105); Lipase 36 U/L (23-300); Potassium 3.6 mmol/L (3.4-5.0); Sodium 140 mmol/L (137-145)
--- NOTE | 2020-03-04 22:14 | PM.IMHP ---
H&P: HPI History of Present Illness Date/Time: 03/04/20 22:14 Chief Complaint: Abdominal pain, nausea/vomiting, UC flare Narrative: Regino Calvillo is a 24 year old female of ulcerative colitis, IgG deficiency, history of Raielle esophagitis presents to ED complaints of abdominal pain, nausea/vomiting. Patient has known UC flare which has been going on on and off since December. She was recently mostly recently admitted 02/13-02/15 for IV antibiotics and steroids. Dr. Rust is her primary teacher of the deaf. She has had TB screen (ppd is always positive, chest x-ray negative) and hepatitis-B screen. Now she is awaiting insurance approval for biologics. She states after her hospitalization she was okay for 3 days, then subsequently developed significant nausea vomiting not tolerating any p.o. she could see the undigested steroids in her emesis. Her bloody diarrhea has calmed down and her stools are no longer bloody but still loose. She has not been able to get an appointment with her teacher of the deaf because of the holidays. Patient is back because of significant abdominal pain and nausea and vomiting. Patient denies any new foods, sick contacts. She uses marijuana for pain control which has not been helping. In the ED: Patient was given Zofran, L normal saline bolus, Solu-Medrol 60 mg, antibiotics Rocephin and Flagyl, pain control with fentanyl which caused itching, and maintenance fluids of LR 125 cc/hour. ER provider did talk to teacher of the deaf will see patient in consultation. Patient's symptoms are consistent with UC flare, patient admitted for UC flare. Review of Systems Review of Systems: Narrative: Constitutional: No Fever, No Chills, No Night Sweats, No Fatigue, No Malaise ENT/Mouth: No Hearing Changes, No Ear Pain, No Nasal Congestion, No Sinus Pain, No Hoarseness, No sore throat, No Rhinorrhea, No Swallowing Difficulty Eyes: No Eye Pain, No Redness, No Vision Changes Cardiovascular: No Chest Pain, No Palpitations, No Dyspnea on Exertion, No Orthopnea, No Claudication, No Edema Respiratory: No Cough, No Sputum, No Wheezing, No Shortness of Breath Gastrointestinal: Endorses nausea, vomiting, loose stools, abdominal pain throughout worst in left lower quadrant, feeling bloated. No Heartburn, No Hematochezia, No Melena Genitourinary: No Dysuria, No Urinary Frequency, No Hematuria, No Urinary Incontinence, No Urgency Musculoskeletal: No Arthralgias, No Myalgias, No Joint Swelling, No Joint Stiffness, No Back Pain Skin: No Skin Lesions, No Pruritis, No Hair Changes Neuro: No Weakness, No Numbness, No Paresthesias, No Loss of Consciousness, No Syncope, No Dizziness, No Headache Psych: No Anxiety/Panic, No Depression, No Insomnia Heme: No Bruising, No Bleeding Lymph: No Adenopathy Endocrine: No Polyuria, No Polydipsia, No Temperature Intolerance [facility] Past Medical History Medical History Abdominal pain Anemia Anxiety Asthma Bipolar disorder Bloody diarrhea Arielle esophagitis Depression Dizziness Headache History of adverse reaction to anesthesia Hypertension IBS (irritable bowel syndrome) Immune deficiency disorder Immunodeficiency disorder, selective immunoglobulin Latex allergy Marijuana abuse Nausea and vomiting in adult Seasonal allergies Stomach pain Ulcerative colitis Weight gain Surgical History Surgical History Hx of cholecystectomy Family History Family History Father Acute myocardial infarction Mother Emphysema lung Chronic obstructive pulmonary disease Bipolar 1 disorder Sibling Selective immunoglobulin deficiency 2 sisters and a brother have it and all three of her children have it. Other Arthritis Diabetes mellitus Heart disease Hypertension Malignant neoplasm Neuropathy Social Hist
[2020-03-04 22:20] VITALS: BP 116/65; PULSE 94; RESP 16; O2SAT 97
[2020-03-04] MEDS: metroNIDAZOLE 500 MG/ISO 100ML 500 MG/100 ML BAG 100 MG IVPB (22:21)
[2020-03-04] MEDS: diphenhydrAMINE HCl INJ 50 MG/ML VIAL 25 MG IV PUSH (22:30)
[2020-03-04] MEDS: HYDROmorphone HCL INJ (*CRX) 1 MG/ML SYR 0.5 MG IV PUSH (22:30)
[2020-03-04] MEDS: methylPREDNISolone SOD SUCC 125 MG VIAL 60 MG IV PUSH (22:30)
[2020-03-04 23:10] VITALS: BP 122/78; PULSE 93; RESP 15; TEMP 36.7; O2SAT 97
[2020-03-04 23:20] VITALS: BP 100/36; PULSE 95; RESP 18; TEMP 36.3; O2SAT 97; O2SAT 98; BMI 27.0
--- NOTE | 2020-03-04 23:22 | ADMGEN ---
At 2220, This patient, Regino Calvillo, was admitted to [facility] Surg Room 321-. Patient/family oriented to hospital policies and general routines including ID bracelet, bed and alarms, visiting hours, pain management, procedures, bathroom and other care routines, personal items, smoking policy, room service/diet, and visiting hours. Information on how to activate the Rapid Response Team has been discussed. Patient/Family are encouraged to report perceived risks to care and to ask questions if they do not understand what they are told or what they should do.
[2020-03-04] MEDS: LACTATED RINGERS 1,000 ML 125 ML IV CONT (23:27)
[2020-03-05] MEDS: HYDROmorphone HCL INJ (*CRX) 1 MG/ML SYR 0.5 MG IV PUSH ×10 (00:06→22:26)
[2020-03-05] MEDS: ONDANSETRON INJ 4 MG/2 ML VIAL IV PUSH ×4 (03:00→21:47)
[2020-03-05] MEDS: metroNIDAZOLE 500 MG/ISO 100ML 500 MG/100 ML BAG 100 MG IVPB ×4 (05:31→23:40)
[2020-03-05 06:00] VITALS: BP 120/59; PULSE 106; RESP 16; TEMP 36.3; O2SAT 97
[2020-03-05 06:44] LABS: Basophils Percent Auto 0.2 % (0.2-1.2); Hematocrit 37.4 % (37.0-47.0); Hemoglobin 12.5 g/dL (12.0-15.0); Immature Granulocyte Absolute 0.01 K/mm3 (0.00-0.031); Immature Granulocyte Percent A 0.2 % (0-0.5); Lymphocytes Percent Auto 11.9 % (18.3-44.2); Mean Corpuscular HGB Conc 33.4 g/dl (32-36); Mean Corpuscular Hemoglobin 28.8 pg (26-34); Mean Corpuscular Volume 86.2 fl (80-100); Mean Platelet Volume 10.3 fl (7.4-10.4); Monocytes Percent Auto 0.8 % (2.6-8.5); Neutrophils Absolute Auto 4.4 K/mm3 (1.3-6.7); Neutrophils Percent Auto 86.9 % (45.5-73.1); Platelet Count Result 250 k/mm3 (150-375); Red Blood Count 4.34 M/mm3 (4.2-5.4); Red Cell Distribution Width 14.4 % (11.5-14.5)
[2020-03-05 06:57] LABS: Anion Gap 8 mmol/L (8-16); Blood Urea Nitrogen 11 mg/dL (7-17); Calcium 8.4 mg/dL (8.4-10.2); Carbon Dioxide 22 mmol/L (22-30); Chloride 108 mmol/L (98-107); Estimated CRCL calculation 133 ml/min; Estimated Glomerular Filt Rate > 60; Glucose 140 mg/dL (65-105); Potassium 3.8 mmol/L (3.4-5.0); Sodium 138 mmol/L (137-145)
[2020-03-05] MEDS: LACTATED RINGERS 1,000 ML 125 ML IV CONT ×2 (08:12→17:52)
[2020-03-05] MEDS: PANTOPRAZOLE SODIUM IV 40 MG VIAL IV PUSH (08:14)
[2020-03-05] MEDS: methylPREDNISolone SOD SUCC 125 MG VIAL 60 MG IV PUSH (08:15)
--- NOTE | 2020-03-05 09:27 | PM.IMPN ---
Progress Note: A&P Assessment and Plan (1) Ulcerative colitis: Qualifiers: Digestive disease complication type: unspecified complication Ulcerative colitis location: unspecified ulcerative colitis location Qualified Code(s): K51.919 - Ulcerative colitis, unspecified with unspecified complications Code(s): K51.90 - Ulcerative colitis, unspecified, without complications Status: Acute Assessment and Plan: -UC flare since early February, patient not tolerating her steroids outpatient with nausea and abdominal pain -consulting primary GI Dr. Rust and Kemal -UC was diagnosed by colonoscopy in spring 2019, she is allergic to Pentasa, financial difficulties with [employer] -patient is already had TB screen and hepatitis B screen for biologics, GI provider following (patient was considered for Imuran before) -TPMT activity quantitative 17 -steroids: IV Solu-Medrol starting at 60 mg daily to restart taper (she has had Arielle esophagitis previously from steroids) -pain control: Dilaudid 0.5 q.2 hours, [place] PRN, Lidocaine patches -nausea: Zofran, Benadryl, Pepcid, TUMS -IV fluids: LR at 125 cc/hour -antibiotics: Rocephin, Flagyl will continue for now (2) Intractable nausea and vomiting: Code(s): R11.2 - Nausea with vomiting, unspecified Status: Acute Assessment and Plan: -associated with UC flare - NPO - meds, ice chips and sips only -will treat with IV Zofran, Benadryl, Pepcid, TUMS -at this time, controlled unless she becomes agitated or irritated or anxious. (3) Marijuana abuse: Code(s): F12.10 - Cannabis abuse, uncomplicated Status: Chronic Assessment and Plan: -history of marijuana use, -possibly related to nausea vomiting - but patient may also be having UC flare and not tolerating her UC treatment (4) Bipolar disorder: Qualifiers: Active/Remission status: remission status unspecified Qualified Code(s): F31.9 - Bipolar disorder, unspecified Code(s): F31.9 - Bipolar disorder, unspecified Status: Chronic Assessment and Plan: - Home fluoxetine (Prozac), Ativan(Lorazepam), quetiapine (Seroquel) -she should F/U with Psychologist/Counselor as soon as possible after discharge to establish care and monitor any Psych Medication changes. - continue the Quetiapine and IV Ativan now. (5) Depression: Qualifiers: Depression Type: unspecified Qualified Code(s): F32.9 - Major depressive disorder, single episode, unspecified Code(s): F32.9 - Major depressive disorder, single episode, unspecified Status: Chronic Assessment and Plan: -major depressive disorder: Home fluoxetine (Prozac), Ativan(Lorazepam), quetiapine (Seroquel) -patient thinking that the Seroquel is no longer helping her and that she may need to go back on Cymbalta. -Had continued her on quetiapine (Seroquel) during her last hospitalization earlier this month and she did well, will continue that medication at this time. - she should F/U with Primary Care Provider (her insurance changed) AND a Psychologist/Counselor as soon as possible after discharge to establish care and monitor any Psych Medication changes. - continue the Quetiapine and IV Ativan now. -Suicide precautions as needed/as warranted. (6) GABI (generalized anxiety disorder): Code(s): F41.1 - Generalized anxiety disorder Status: Acute Assessment and Plan: -GABI: Home fluoxetine (Prozac), Ativan(Lorazepam), quetiapine (Seroquel) -patient thinking that the Seroquel is no longer helping her and that she may need to go back on Cymbalta. -Had continued her on quetiapine (Seroquel) during her last hospitalization earlier this month and she did well, will continue that medication at this time. - she should F/U with Primary Care Provider (her insurance changed) AND a Psychologist/Counselor as soon as possible after discharge to establish care and monitor any Psych Medication changes
[2020-03-05] MEDS: LIDOCAINE 5% PATCH 3 PATCH TRANSDERM (10:20)
--- NOTE | 2020-03-05 10:43 | PC.NURSE ---
Patients called nurses station and reported to the community health educator that patient sent him text messages stating she was going to kill herself. ASSESSMENT DIRECTOR sent to sit with patient while physician notified of text. Patient yelling at process improvement consultant get the fuck out of the room and i will have your job as well as she stated if i get out of this bed we will have problems. Patient showed md do resident urgent care [facility] her phone and no text messages were found. Patient continuing to scream at staff to get out of the room. Attempted to complete [place] screening patient refusing to answers questions at this time. Ana Laura Grewal, Derian Parham all witness to this.
--- NOTE | 2020-03-05 10:56 | PC.NURSE ---
Josie TARIQ at bedside attempting to calm patient and talking through [place] assessment.
[2020-03-05] MEDS: diphenhydrAMINE HCl INJ 50 MG/ML VIAL IV PUSH ×2 (11:12→20:49)
[2020-03-05] MEDS: LORazepam INJ (*CRX) 2 MG/ML VIAL 0.5 MG IV PUSH ×2 (11:12→21:46)
[2020-03-05 14:00] VITALS: BP 130/78; PULSE 119; RESP 20; TEMP 36.4; O2SAT 98
--- NOTE | 2020-03-05 15:17 | PC.NURSE ---
Patient to CT per wheelchair.
--- NOTE | 2020-03-05 15:26 | PC.NURSE ---
Patient returned from CT per wheelchair.
[2020-03-05] MEDS: SUCRALFATE 1 GM TABLET PO ×2 (17:53→20:30)
--- NOTE | 2020-03-05 17:55 | WPDGIPROGNO ---
Progress Note: A&P Additional Plan #[id number] Subjective Date/time seen: 03/05/20 17:55 Objective Data Vital Signs Vital Signs: Vital Signs - 24 hr 03/04/20 19:58 03/04/20 20:47 03/04/20 21:21 Temperature 35.9 C L Pulse Rate 117 H 111 H 98 Respiratory Rate 18 20 11 L Blood Pressure 124/87 122/100 H 133/87 Pulse Oximetry 100 100 98 03/04/20 22:20 03/04/20 23:10 03/04/20 23:20 Temperature 36.7 C 36.3 C L Pulse Rate 94 93 95 Respiratory Rate 16 15 18 Blood Pressure 116/65 122/78 100/36 L Pulse Oximetry 97 97 98 03/05/20 06:00 03/05/20 14:00 Temperature 36.3 C L 36.4 C L Pulse Rate 106 H 119 H Respiratory Rate 16 20 Blood Pressure 120/59 L 130/78 Pulse Oximetry 97 98 Intake/Output Intake/Output: Intake & Output 03/02/20 03/03/20 03/04/20 03/05/20 23:59 23:59 23:59 23:59 Intake Total 1050 2200 Output Total 700 Balance 1050 1500 Meds/Results Medications: Active Medications Generic Name Dose Route Start Last Admin Trade Name Freq PRN Reason Stop Dose Admin Calcium Carbonate 200 mg 03/05/20 09:22 Calcium Carbonate (Tums) 500 Mg (200 Mg Elemental) PO Q6H PRN Indigestion Diphenhydramine HCl 50 mg 03/05/20 10:33 Diphenhydramine Hcl Inj 50 Mg/Ml Vial IV PUSH Q6H PRN Irritation Famotidine 20 mg 03/05/20 10:35 Famotidine 20 Mg/2 Ml Vial IV PUSH Q12HR PRN Reflux Hydromorphone HCl 0.5 mg 03/04/20 21:45 03/05/20 17:47 Hydromorphone Hcl Inj (*Crx) 1 Mg/Ml Syr IV PUSH 0.5 mg Q2HR PRN Administration PAIN 7-10 Metronidazole 500 mg in 100 mls @ 100 mls/hr 03/05/20 06:00 03/05/20 17:50 Flagyl 500 Mg/Iso Soln 100 Ml IVPB 100 mls/hr Q6HR CHOLO Administration Lactated Ringer's 1,000 mls @ 125 mls/hr 03/04/20 21:45 03/05/20 17:52 Lr - Lactated Ringers Iv IV CONT 125 mls/hr .Q8H CHOLO Administration Ceftriaxone Sodium/Dextrose 1 gm in 50 mls @ 100 mls/hr 03/05/20 21:00 Rocephin 1 Gm/D5w 50 Ml IVPB Q24H CHOLO Lidocaine 3 patch 03/05/20 09:20 03/05/20 10:20 Lidocaine 5% Patch TRANSDERM 3 patch DAILY CHOLO Administration Lorazepam 0.5 mg 03/05/20 11:04 Lorazepam Inj (*Crx) 2 Mg/Ml Vial IV PUSH Q8H PRN Anxiety Methylprednisolone Sodium Succinate 60 mg 03/05/20 09:00 03/05/20 08:15 Methylprednisolone Sod Succ 125 Mg Vial IV PUSH 60 mg DAILY CHOLO Administration Ondansetron HCl 4 mg 03/04/20 22:44 03/05/20 15:58 Ondansetron Inj 4 Mg/2 Ml Vial IV PUSH 4 mg Q6HR PRN Administration Nausea And Vomiting Oxycodone/Acetaminophen 1 tablet 03/05/20 11:09 Oxycodone/Acetaminophen (*Crx) 5-325 Mg Tablet PO Q4H PRN Pain Rated 6 or Greater Pantoprazole Sodium 40 mg 03/05/20 09:00 03/05/20 08:14 Pantoprazole Sodium Iv 40 Mg Vial IV PUSH 40 mg DAILY CHOLO Administration Quetiapine Fumarate 200 mg 03/05/20 12:00 03/05/20 17:10 Quetiapine Fumarate 100 Mg Tablet PO Not Given 0900,1200 [facility] Quetiapine Fumarate 400 mg 03/05/20 21:00 Quetiapine Fumarate 100 Mg Tablet PO HS CHOLO Sucralfate 1 gm 03/05/20 16:45 03/05/20 17:53 Sucralfate 1 Gm Tablet PO 1 gm ACHS CHOLO Administration Radiology Results: ITS Impressions Abdomen/Pelvis CT 03/05/20 15:33 IMPRESSION: 1. No CT correlate for the patient's symptoms. Labs Labs: Laboratory Results - last 24 hr 03/04/20 03/04/20 03/04/20 20:12 21:14 21:14 WBC 6.2 RBC 4.30 Hgb 12.6 Hct 37.3 MCV 86.7 MCH 29.3 MCHC 33.8 RDW 14.6 H Plt Count 232 MPV 9.9 Immature Gran % (Auto) 0.2 Neut % (Auto) 54.1 Lymph % (Auto) 34.5 [place] % (Auto) 8.7 H Eos % (Auto) 1.9 Baso % (Auto) 0.6 Lymph # (Auto) 2.14 [place] # (Auto) 0.5 Eos # (Auto) 0.1 Baso # (Auto) 0.0 Abs Immat Gran (auto) 0.01 Absolute Neuts (auto) 3.4 Absolute Nucleated RBC 0.0 Nucleated RBC % 0.0 Sodium 140 Potassium 3.6 Chloride
--- NOTE | 2020-03-05 20:21 | PC.NURSE ---
191 Accepted patient assignment and introduced self to patient. Eloisa Brown RN dropped off bag of personal belongings which Stephanie RN had removed medications from. 1929 Called by patient. Patient yelling at this nurse accusing of taking $140 and wants to know why her bag was searched. Explain her medications were placed in the safe by Stephanie DUMONT. No money was taken from her bag. Patient continues to be verbally aggressive. Multiple staff members respond to the outburst. Marcial Tuttle primer charger called to room and patient told him to leave because she was half undressed. Pharmacy Sales Assistant, Mitzy Gomes, called to room. Patient called police to report theft. Patient's calling to further report the incidence. Patient continues to be verbally aggressive and called this nurse a skank and hoe before yelling at this nurse to leave the room. 1944 Mitzy Gomes at the bedside discussing incidence with patient. Patient continues to yell. 1999 Mitzy Gomes will continue to follow up on possible theft. Mitzy Gomes tells patient and asks if patient is ready for medications. Patient states her medications are 10 minutes late. Mitzy Gomes states this nurse is ready to give her medications. Patient states she does not want this nurse to be her nurse because patient believes this nurse stole her money. 2009 Patient assignment handed over to Latisha DUMONT. Report given.
[2020-03-05] MEDS: QUEtiapine FUMARATE 100 MG TABLET 400 MG PO (20:30)
--- NOTE | 2020-03-05 23:53 | CONS_ITS ---
DATE OF CONSULTATION: 03/05/2020 HISTORY OF PRESENT ILLNESS: A 24-year-old female with history of inflammatory bowel disease, ulcerative colitis versus Crohn disease diagnosed on August 15, 2019, by Dr. Rust. She has history of IgG deficiency, cholecystectomy, bipolar disorder, anxiety, depression, hypertension, Arielle esophagitis, who I am now asked to provide GI evaluation at the request of the hospitalist service for possible flare of inflammatory bowel disease. Primary bulldozer mechanic is Dr. Fierro. No primary care provider. The patient presented to the ER on March 04, with abdominal pain, nausea, vomiting, diarrhea, hematochezia, heartburn. She has diarrhea with 3-4 stools per day that are loose and more bloody prior to admission. They are not melenic, but they can be mucoid. She denies joint or ocular problems. No juancho hematemesis. She had a recent admission from February 13 to , where she received IV antibiotics and steroids. She was improved for 3 days and subsequently her symptoms all returned. She is having nausea, vomiting of undigested pills and material, but no coffee-ground or hematemesis. Her bowel movements were bloody, but are improved since admission and are now not bloody. As an outpatient, she is awaiting for insurance approval for some type of biological agent. She uses marijuana daily for pain control, but this has not worked lately. Patient describes of 2 different pains. There is a pain in both lower quadrants that is severe and crampy. It is episodic in nature and lately has been occurring more. When she gets the pain, it is constant. It worsens with oral intake and no change with bowel movements. She has epigastric right upper quadrant pain that is same as her pre-cholecystectomy pain that occurs intermittently and is nonradiating. She has poor appetite, but has not lost significant amounts of weight at this time. She has significant heartburn that she describes as bile reflux. She denies constipation, melena, fever, jaundice, scleral icterus, dark urine, light stools, itching, hot or cold intolerance, chest pain, shortness of breath at rest, hematuria, dysuria, new cough or visual changes, easy bruising, tingling of the skin, bone pain, or tremors. No endocarditis risk factors. ALLERGIES: SEE LIST. MEDICATIONS: Her outpatient medicine list shows prednisone 10 mg daily, quetiapine and Ativan. She states that she is on Protonix 40 mg in the morning and before dinner and Prilosec 20 mg in the morning. She states that she has never tried Carafate. SOCIAL HISTORY: Nonsmoker, nondrinker, but she states she uses 2-3 hitters of marijuana daily. She lives with her and 4 children. FAMILY HISTORY: Negative for GI malignancy or IBD. PHYSICAL EXAMINATION: GENERAL: A well-developed, well-nourished female, lying in bed, in significant distress. She is crying and texting alternatively. She has no lower extremity edema, jaundice, spider angioma, palmar erythema. HEENT: Skull is normocephalic, atraumatic. Pupils nonicteric. Oropharynx clear NECK: Supple without thyromegaly. LUNGS: Clear to auscultation. HEART: Rate and rhythm regular. S1, S2 normal. ABDOMEN: Normoactive bowel sounds. Soft. Diffuse tenderness with some mild voluntary guarding, nonrigid, nondistended without hepatosplenomegaly or masses. RECTAL: Deferred. NEURO: Conscious and alert x3. LABORATORY DATA: Today, hemoglobin 13, hematocrit 37, white count of 5, MCV 86. LFTs are normal. Lipase is 36. On March 04, hematocrit is 34, white count of 6, platelets 232. LFTs are normal. CT scan of the abdomen and pelvis done today is unremarkable. ASSESSMENT AND PLAN: The patient with abdominal pain, nausea, vomiting, d
[2020-03-06] MEDS: FAMOTIDINE 20 MG/2 ML VIAL IV PUSH (00:08)
[2020-03-06] MEDS: HYDROmorphone HCL INJ (*CRX) 1 MG/ML SYR 0.5 MG IV PUSH ×10 (00:32→23:20)
[2020-03-06] MEDS: metroNIDAZOLE 500 MG/ISO 100ML 500 MG/100 ML BAG 100 MG IVPB ×3 (05:05→19:23)
[2020-03-06 06:00] VITALS: BP 100/60; PULSE 86; RESP 18; TEMP 36.4; O2SAT 99
[2020-03-06] MEDS: SUCRALFATE 1 GM TABLET PO ×4 (06:00→21:15)
[2020-03-06] MEDS: LACTATED RINGERS 1,000 ML 125 ML IV CONT (06:02)
[2020-03-06 08:42] LABS: Anion Gap 8 mmol/L (8-16); Blood Urea Nitrogen 10 mg/dL (7-17); Calcium 8.3 mg/dL (8.4-10.2); Carbon Dioxide 22 mmol/L (22-30); Chloride 107 mmol/L (98-107); Estimated CRCL calculation 113 ml/min; Estimated Glomerular Filt Rate > 60; Glucose 84 mg/dL (65-105); Potassium 3.3 mmol/L (3.4-5.0); Sodium 137 mmol/L (137-145)
[2020-03-06] MEDS: DEXAMETHASONE SOD PHOS INJ 4 MG/ML VIAL IV PUSH ×2 (09:21→21:15)
[2020-03-06] MEDS: PANTOPRAZOLE SODIUM IV 40 MG VIAL IV PUSH (09:23)
[2020-03-06] MEDS: QUEtiapine FUMARATE 100 MG TABLET 200 MG PO ×2 (09:24→13:00)
[2020-03-06] MEDS: LIDOCAINE 5% PATCH 3 PATCH TRANSDERM (09:41)
[2020-03-06 10:32] LABS: Basophils Percent Auto 0.4 % (0.2-1.2); Eosinophils Percent Auto 0.4 % (0-4.4); Hematocrit 33.4 % (37.0-47.0); Hemoglobin 11.1 g/dL (12.0-15.0); Immature Granulocyte Absolute 0.01 K/mm3 (0.00-0.031); Immature Granulocyte Percent A 0.2 % (0-0.5); Lymphocytes Absolute Auto 2.53 K/mm3 (0.9-3.2); Lymphocytes Percent Auto 44.5 % (18.3-44.2); Mean Corpuscular HGB Conc 33.2 g/dl (32-36); Mean Corpuscular Volume 87.2 fl (80-100); Mean Platelet Volume 10.3 fl (7.4-10.4); Monocytes Absolute Auto 0.5 K/mm3 (0.1-0.6); Monocytes Percent Auto 8.1 % (2.6-8.5); Neutrophils Absolute Auto 2.7 K/mm3 (1.3-6.7); Neutrophils Percent Auto 46.4 % (45.5-73.1); Platelet Count Result 207 k/mm3 (150-375); Red Blood Count 3.83 M/mm3 (4.2-5.4); Red Cell Distribution Width 14.6 % (11.5-14.5); White Blood Count 5.7 K/mm3 (4.5-10.0)
--- NOTE | 2020-03-06 12:29 | PM.IMPN ---
Progress Note: A&P Assessment and Plan (1) Ulcerative colitis: Qualifiers: Ulcerative colitis location: unspecified ulcerative colitis location Digestive disease complication type: unspecified complication Qualified Code(s): K51.919 - Ulcerative colitis, unspecified with unspecified complications Code(s): K51.90 - Ulcerative colitis, unspecified, without complications Status: Acute Assessment and Plan: UC exacerbation; recently admitted/discharged early 02/2020, patient not tolerating her steroids outpatient with nausea and abdominal pain. Dr. Sommre consulted and appreciate input. Patient states she has tried Reglan recently without issues and is willing to start again. UC was diagnosed by colonoscopy in spring 2019, she is allergic to Pentasa, financial difficulties with [employer] Switched IV SoluMedrol to IV decadron 4 mg Q12hr per GI rec Will start Reglan 10 mg 6hr for now consulting primary GI Dr. Rust and Kemal pain control: Dilaudid 0.5 q.2 hours prn, [place] PRN, Lidocaine patches nausea: Zofran, Benadryl, Pepcid, TUMS, and will start Reglan IV fluids: LR at 75 cc/hour as she is NPO antibiotics: Rocephin, Flagyl will continue for now; patient has allergy of rash and tingling in throat with Levofloxacin in ED on 08/2019 visit - will hold on Cipro given this reaction (2) Intractable nausea and vomiting: Code(s): R11.2 - Nausea with vomiting, unspecified Status: Acute Assessment and Plan: associated with UC flare and possible component of cannabinoid hyperemesis NPO - meds, ice chips and sips only for now. Consider advancing diet tomorrow if continued improvement will treat with IV Zofran, Benadryl, Pepcid, TUMS and start Reglan today q6hr (3) Marijuana abuse: Code(s): F12.10 - Cannabis abuse, uncomplicated Status: Chronic Assessment and Plan: history of marijuana use, possible component of n/v (4) Bipolar disorder: Qualifiers: Active/Remission status: remission status unspecified Qualified Code(s): F31.9 - Bipolar disorder, unspecified Code(s): F31.9 - Bipolar disorder, unspecified Status: Chronic Assessment and Plan: No acute issues at this time Continue home medications. She will need f/u with PCP and/or psychiatrist or counselor as outpatient (5) Depression: Qualifiers: Depression Type: unspecified Qualified Code(s): F32.9 - Major depressive disorder, single episode, unspecified Code(s): F32.9 - Major depressive disorder, single episode, unspecified Status: Chronic Assessment and Plan: No acute issues at this time Continue home medications (6) GABI (generalized anxiety disorder): Code(s): F41.1 - Generalized anxiety disorder Status: Acute Assessment and Plan: No acute issues at this time continue home medications Additional Plan -IgG deficiency Subjective Date/time seen: 03/06/20 12:29 Interval history: Patient is a 24 yo F with history of ulcerative colitis, IgG deficiency, history of Arielle esophagitis who is seen in follow up for UC flare and intractable n/v. Patient states she feels somewhat better today, noting that the pain has come down to 6-7/10 from when she first arrived. Her N/v has improved, but did note bile appearing emesis this morning; no further episodes since then. She has not had a BM since she has been admitted. She is passing gas. No other complaints. Denies f/c/s, headaches, dizziness, lightheadedness, cp/palpitations, sob/cough, dysuria, calf pain/swelling. Review of Systems Review of Systems: All systems reviewed & are unremarkable except as noted in HPI and below Exam Narrative: Exam Narra
[2020-03-06] MEDS: ENOXAPARIN 40 MG/0.4 ML SYRINGE SUB-Q (13:08)
[2020-03-06 14:00] VITALS: BP 128/78; PULSE 99; RESP 18; TEMP 36.7; O2SAT 99
[2020-03-06] MEDS: LORazepam INJ (*CRX) 2 MG/ML VIAL 0.5 MG IV PUSH (15:14)
--- NOTE | 2020-03-06 16:03 | PC.NURSE ---
03/05/20 1845 patients had belongings dropped off. Belongings were gone through at nurses station before going into patients room. Patient had been refusing medications all day but also stating staff was not taking care of her. Nurse suspected patient might have been trying to bring in home medications. The belongings bag was searched with Kristy Brian Cna. bag was noted to have an envelope, several items of clothing and 2 bottles of medications. Medications were ativan and seroquel. Medications were placed in the med room safe sealed in an envelope and tagged with the patients sticker. The remainder of the belongings were taken to the patients room during shift change.
[2020-03-06] MEDS: METOCLOPRAMIDE HCL INJ 10 MG/2 ML VIAL IV PUSH (18:50)
--- NOTE | 2020-03-06 19:30 | PC.NURSE ---
I entered kylie patient's room to start her IV abx. The patient stated that she wanted some sprite to drink. I explained to the patient that her diet was still NPO with ice chips. 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 It's your job to ask the doctor. I was told that I could have sprite. I asked the patient who told her that she could have sprite. The patient stated, That Hugo figueroa. I notified the patient that Hugo did not order for the patient to have clear liquids or say anything about it in his note. The patient stated, Just wait, I'll have your job. Shandra Nash RN was a witness in the room.
[2020-03-06] MEDS: QUEtiapine FUMARATE 100 MG TABLET 400 MG PO (21:15)
[2020-03-06 22:00] VITALS: BP 139/90; PULSE 95; RESP 20; TEMP 36.7; O2SAT 99
[2020-03-07] MEDS: METOCLOPRAMIDE HCL INJ 10 MG/2 ML VIAL IV PUSH ×3 (00:19→12:52)
[2020-03-07] MEDS: metroNIDAZOLE 500 MG/ISO 100ML 500 MG/100 ML BAG 100 MG IVPB ×5 (00:19→23:34)
[2020-03-07] MEDS: HYDROmorphone HCL INJ (*CRX) 1 MG/ML SYR 0.5 MG IV PUSH ×3 (02:35→08:06)
[2020-03-07] MEDS: LACTATED RINGERS 1,000 ML 75 ML IV CONT ×2 (04:06→14:06)
[2020-03-07] MEDS: SUCRALFATE 1 GM TABLET PO ×4 (05:25→21:11)
[2020-03-07 05:52] VITALS: BP 116/50; PULSE 94; RESP 18; TEMP 36.4; O2SAT 97
[2020-03-07 06:24] LABS: Anion Gap 7 mmol/L (8-16); Blood Urea Nitrogen 10 mg/dL (7-17); Calcium 8.8 mg/dL (8.4-10.2); Carbon Dioxide 23 mmol/L (22-30); Chloride 106 mmol/L (98-107); Estimated CRCL calculation 133 ml/min; Estimated Glomerular Filt Rate > 60; Glucose 95 mg/dL (65-105); Magnesium 1.8 mg/dL (1.6-2.3); Sodium 136 mmol/L (137-145)
[2020-03-07 06:36] LABS: Basophils Percent Auto 0.3 % (0.2-1.2); Hematocrit 35.3 % (37.0-47.0); Hemoglobin 11.9 g/dL (12.0-15.0); Immature Granulocyte Absolute 0.01 K/mm3 (0.00-0.031); Immature Granulocyte Percent A 0.2 % (0-0.5); Lymphocytes Absolute Auto 1.18 K/mm3 (0.9-3.2); Lymphocytes Percent Auto 18.1 % (18.3-44.2); Mean Corpuscular HGB Conc 33.7 g/dl (32-36); Mean Corpuscular Hemoglobin 29.2 pg (26-34); Mean Corpuscular Volume 86.7 fl (80-100); Mean Platelet Volume 9.8 fl (7.4-10.4); Monocytes Absolute Auto 0.3 K/mm3 (0.1-0.6); Monocytes Percent Auto 5.1 % (2.6-8.5); Neutrophils Percent Auto 76.3 % (45.5-73.1); Platelet Count Result 215 k/mm3 (150-375); Red Blood Count 4.07 M/mm3 (4.2-5.4); Red Cell Distribution Width 14.1 % (11.5-14.5); White Blood Count 6.5 K/mm3 (4.5-10.0)
[2020-03-07 08:00] VITALS: PULSE 94; RESP 18; O2SAT 97
[2020-03-07] MEDS: LIDOCAINE 5% PATCH 3 PATCH TRANSDERM (08:14)
[2020-03-07] MEDS: QUEtiapine FUMARATE 100 MG TABLET 200 MG PO ×2 (08:14→12:52)
[2020-03-07] MEDS: PANTOPRAZOLE SODIUM IV 40 MG VIAL IV PUSH (08:14)
[2020-03-07] MEDS: ENOXAPARIN 40 MG/0.4 ML SYRINGE SUB-Q (08:15)
[2020-03-07] MEDS: DEXAMETHASONE SOD PHOS INJ 4 MG/ML VIAL IV PUSH ×2 (08:15→21:10)
[2020-03-07 08:44] VITALS: O2SAT 97
[2020-03-07] MEDS: oxyCODONE/ACETAMINOPHEN (*CRX) 5-325 MG TABLET 1 TABLET PO ×3 (11:03→21:10)
[2020-03-07 14:00] VITALS: BP 134/73; PULSE 103; RESP 20; TEMP 36.6; O2SAT 99
--- NOTE | 2020-03-07 14:18 | PM.IMPN ---
Progress Note: A&P Assessment and Plan (1) Ulcerative colitis: Qualifiers: Ulcerative colitis location: unspecified ulcerative colitis location Digestive disease complication type: unspecified complication Qualified Code(s): K51.919 - Ulcerative colitis, unspecified with unspecified complications Code(s): K51.90 - Ulcerative colitis, unspecified, without complications Status: Acute Assessment and Plan: UC exacerbation; recently admitted/discharged early 02/2020, patient was not tolerating her steroids outpatient with nausea and abdominal pain; thinks she is on week of taper with [address] Sommer (GI) consulted and appreciate input. Patient appears to have improved overnight. She is tolerating diet currently and wishing to switch most meds to PO if able to do so. - UC was diagnosed by colonoscopy in spring 2019, she is allergic to Pentasa, financial difficulties with [employer] Continue IV decadron 4 mg Q12hr per GI rec; anticipate long steroid taper again at discharge, but will discuss with GI prior to discharge Will switch to Reglan 10 mg ACHS PO pain control: Dilaudid 0.5 q.2 hours PRN if not tolerating PO [place] PRN, Lidocaine patches nausea: Zofran, Benadryl, Pepcid, TUMS, and Reglan D/c IV fluids antibiotics: Rocephin, Flagyl - will continue for now; patient has allergy of rash and tingling in throat with Levofloxacin in ED on 08/2019 visit - will hold on Cipro given this reaction (2) Intractable nausea and vomiting: Code(s): R11.2 - Nausea with vomiting, unspecified Status: Acute Assessment and Plan: associated with UC flare and possible component of cannabinoid hyperemesis Low fat diet. will treat with IV Zofran, Benadryl, Pepcid, TUMS and Reglan (3) Marijuana abuse: Code(s): F12.10 - Cannabis abuse, uncomplicated Status: Chronic Assessment and Plan: history of marijuana use, possible component of n/v (4) Bipolar disorder: Qualifiers: Active/Remission status: remission status unspecified Qualified Code(s): F31.9 - Bipolar disorder, unspecified Code(s): F31.9 - Bipolar disorder, unspecified Status: Chronic Assessment and Plan: No acute issues at this time Continue home medications. She will need f/u with PCP and/or psychiatrist or counselor as outpatient (5) Depression: Qualifiers: Depression Type: unspecified Qualified Code(s): F32.9 - Major depressive disorder, single episode, unspecified Code(s): F32.9 - Major depressive disorder, single episode, unspecified Status: Chronic Assessment and Plan: No acute issues at this time Continue home medications (6) GABI (generalized anxiety disorder): Code(s): F41.1 - Generalized anxiety disorder Status: Acute Assessment and Plan: No acute issues at this time continue home medications Additional Plan -IgG deficiency Subjective Date/time seen: 03/07/20 14:18 Interval history: Patient is a 24 yo F with history of ulcerative colitis, IgG deficiency, history of Arielle esophagitis who is seen in follow up for UC flare and intractable n/v. Patient states she feels better today; having significantly less pain. It is tolerable on PO pain medications this afternoon. She is tolerating her diet. She wishes to transition to PO meds now that she is tolerating her diet. No BM yet this stay, but passing gas. No N/v today. No other complaints. Denies f/c/s, headaches, dizziness, lightheadedness, cp/palpitations, sob/cough, dysuria, calf pain/swelling. Review of Systems Review of Systems: All systems reviewed & are unremarkable except as noted in HPI and below Exam Narrative: Ex
[2020-03-07 16:18] LABS: IFOB Positive Control Positive; Immunochemical Fecal Occult Bl Negative (N)
[2020-03-07] MEDS: LORazepam INJ (*CRX) 2 MG/ML VIAL 0.5 MG IV PUSH (16:22)
[2020-03-07] MEDS: METOCLOPRAMIDE HCL 10 MG TABLET PO ×2 (16:26→21:11)
--- NOTE | 2020-03-07 16:46 | WPDGIPROGNO ---
Subjective Date/time seen: CHANDNI Black for Dr Sommer 07 Mar 2020 Feeling better. Less pain. No N/V. She has not had BM since admission. No hematochezia or melena. Tolerating diet. VSS. LLQ tenderness with slight guarding. wbc 6.5, Hgb 11.9, hct 35.3, mcv 86 ASSESSMENT/PLAN: A. Abdominal pain, nausea, vomiting, diarrhea, hemtochezia - Hx of IBD - possibly Functional abdominal pain vs. IBD flair with component of cannabinoid hyperemesis - Continue Decadron 4 mg IV q.12 - Continue Levaquin and Flagyl; this will take a few days to have significant effect - Avoid Narcotics -CT imaging showed no evidence of IBD. Consider MRE outpatient and further work up -Reglan AC/HS -No BM since admit. D/C Imodium -No endoscopies at this time -Needs GI follow up outpatient with her GI doctor. Exam Const: General: cooperative, healthy appearing, comfortable, no acute distress and awake Orientation/consciousness: patient oriented x3 Resp: Effort & Inspection: normal respiratory effort Auscultation: clear to auscultation bilaterally Cardio: Rate: regular rate Rhythm: regular rhythm Heart sounds: S1 normal heart sound present, S2 normal heart sound present, no gallops, no murmurs and no rubs GI: Inspection: normal to inspection GI Palp: Yes Soft to palpation, Yes Tenderness to palpation present (GI) (llq with guarding) and No Hepatosplenomegaly present Auscultation: normal bowel sounds Rectal Exam: deferred Skin: General skin exam: normal color Neuro: General: patient oriented x3 Objective Data Vital Signs Vital Signs: Vital Signs - 24 hr 03/06/20 22:00 03/07/20 05:52 03/07/20 08:00 Temperature 36.7 C 36.4 C Pulse Rate 95 94 94 Respiratory Rate 20 18 18 Blood Pressure 139/90 116/50 L Pulse Oximetry 99 97 97 03/07/20 08:44 03/07/20 14:00 Temperature 36.6 C Pulse Rate 103 H Respiratory Rate 20 Blood Pressure 134/73 Pulse Oximetry 97 99 Intake/Output Intake/Output: Intake & Output 03/04/20 03/05/20 03/06/20 03/07/20 23:59 23:59 23:59 23:59 Intake Total 1050 2350 2950 1780 Output Total 823 509 0261 Balance 1050 1650 2350 -20 Meds/Results Medications: Active Medications Generic Name Dose Route Start Last Admin Trade Name Freq PRN Reason Stop Dose Admin Calcium Carbonate 200 mg 03/05/20 09:22 Calcium Carbonate (Tums) 500 Mg (200 Mg Elemental) PO Q6H PRN Indigestion Dexamethasone Sodium Phosphate 4 mg 03/06/20 09:00 03/07/20 08:15 Dexamethasone Sod Phos Inj 4 Mg/Ml Vial IV PUSH 4 mg Q12H CHOLO Administration Diphenhydramine HCl 50 mg 03/05/20 10:33 03/05/20 20:49 Diphenhydramine Hcl Inj 50 Mg/Ml Vial IV PUSH 50 mg Q6H PRN Administration Irritation Enoxaparin Sodium 40 mg 03/06/20 09:00 03/07/20 08:15 Enoxaparin 40 Mg/0.4 Ml Syringe SUB-Q 40 mg DAILY CHOLO Administration Famotidine 20 mg 03/05/20 10:35 03/06/20 00:08 Famotidine 20 Mg/2 Ml Vial IV PUSH 20 mg Q12HR PRN Administration Reflux Hydromorphone HCl 0.5 mg 03/04/20 21:45 03/07/20 08:06 Hydromorphone Hcl Inj (*Crx) 1 Mg/Ml Syr IV PUSH 0.5 mg Q2HR PRN Administration PAIN 7-10 Metronidazole 500 mg in 100 mls @ 100 mls/hr 03/05/20 06:00 03/07/20 12:57 Flagyl 500 Mg/Iso Soln 100 Ml IVPB 100 mls/hr Q6HR CHOLO Administration Ceftriaxone Sodium/Dextrose 1 gm in 50 mls @ 100 mls/hr 03/05/20 21:00 03/06/20 21:44 Rocephin 1 Gm/D5w 50 Ml IVPB Infused Q24H CHOLO Infusion Lidocaine 3 patch 03/05/20 09:20 03/07/20 08:14 Lidocaine 5% Patch TRANSDERM 3 patch DAILY CHOLO Administration Loperamide HCl 2 mg 03/05/20 17:56 Loperamide Hcl 2 Mg Capsule PO Q8H PRN Diarrhea Lorazepam 0.5 mg 03/05/20 11:04 03/07/20 16:22 Lorazepam Inj (*Crx) 2 Mg/Ml Vial IV PUSH 0.5 mg Q8H PRN Administration Anxiety Lorazepam 0.5 mg 03/07/20 14:10 Lorazepam (*Crx) 0.5 Mg Tablet PO TID PRN nausea and vomiting [place]
[2020-03-07] MEDS: QUEtiapine FUMARATE 100 MG TABLET 400 MG PO (21:10)
[2020-03-07] MEDS: PANTOPRAZOLE 40 MG TABLET PO (21:11)
[2020-03-07 22:00] VITALS: BP 118/59; PULSE 89; RESP 16; TEMP 37; O2SAT 100
[2020-03-08] MEDS: metroNIDAZOLE 500 MG/ISO 100ML 500 MG/100 ML BAG 100 MG IVPB (05:41)
[2020-03-08] MEDS: oxyCODONE/ACETAMINOPHEN (*CRX) 5-325 MG TABLET 1 TABLET PO (05:41)
[2020-03-08] MEDS: SUCRALFATE 1 GM TABLET PO (05:42)
[2020-03-08] MEDS: METOCLOPRAMIDE HCL 10 MG TABLET PO (05:42)
[2020-03-08 06:00] VITALS: BP 108/63; PULSE 87; RESP 16; TEMP 36.2; O2SAT 98
[2020-03-08 06:53] LABS: Hematocrit 36.1 % (37.0-47.0); Hemoglobin 12.6 g/dL (12.0-15.0); Mean Corpuscular HGB Conc 34.9 g/dl (32-36); Mean Corpuscular Hemoglobin 29.7 pg (26-34); Mean Corpuscular Volume 85.1 fl (80-100); Platelet Count Result 227 k/mm3 (150-375); Red Blood Count 4.24 M/mm3 (4.2-5.4); Red Cell Distribution Width 14.2 % (11.5-14.5); White Blood Count 7.9 K/mm3 (4.5-10.0)
[2020-03-08 07:13] LABS: Anion Gap 11 mmol/L (8-16); Blood Urea Nitrogen 13 mg/dL (7-17); Carbon Dioxide 21 mmol/L (22-30); Chloride 105 mmol/L (98-107); Estimated CRCL calculation 113 ml/min; Estimated Glomerular Filt Rate > 60; Glucose 144 mg/dL (65-105); Magnesium 1.7 mg/dL (1.6-2.3); Potassium 3.6 mmol/L (3.4-5.0); Sodium 137 mmol/L (137-145)
[2020-03-08 08:00] VITALS: PULSE 87; RESP 16; O2SAT 98
--- NOTE | 2020-03-08 08:01 | PM.DS ---
DS: Admitting Diagnosis Admitting Diagnosis Admitting Diagnosis: UC exacerbation, intractable n/v DS: Discharge Diagnosis Discharge Diagnosis (1) Ulcerative colitis: Qualifiers: Digestive disease complication type: unspecified complication Ulcerative colitis location: unspecified ulcerative colitis location Qualified Code(s): K51.919 - Ulcerative colitis, unspecified with unspecified complications Code(s): K51.90 - Ulcerative colitis, unspecified, without complications Status: Acute Assessment and Plan: UC exacerbation; recently admitted/discharged early 02/2020, patient was not tolerating her steroids outpatient with nausea and abdominal pain; thinks she is on week of taper with [address] Sommer (GI) consulted and appreciate input. Patient appears to have improved again overnight; she is eager for discharge today and has had two nonbloody BMs since yesterday. She is tolerating diet currently and tolerating PO meds. Discussed with Dr. Sommer who is okay for discharge from GI standpoint; see below rec - UC was diagnosed by colonoscopy in spring 2019, she is allergic to Pentasa, financial difficulties with [employer] GI rec decadron 4 mg PO daily until f/u with Dr. Rust, Reglan ACHS until follow up with Dr. Rust, and Flagyl 500 mg PO Q12hr x 2 weeks total antibiotic. GI recommended to trial Cipro today, however, given her reaction to Levaquin and her other potentially qt prolonging agents, elected to discharge on cefdinir as it was felt risks outweighed the potential benefit. Will have patient follow up with Dr. Rust as soon as possible after discharge pain control: will send home with Lidocaine patches; patient declines need for narcotics at this time (2) Intractable nausea and vomiting: Code(s): R11.2 - Nausea with vomiting, unspecified Status: Acute Assessment and Plan: associated with UC flare and possible component of cannabinoid hyperemesis Low fat diet. Reglan ACHS at discharge (3) Marijuana abuse: Code(s): F12.10 - Cannabis abuse, uncomplicated Status: Chronic Assessment and Plan: history of marijuana use, possible component of n/v (4) Bipolar disorder: Qualifiers: Active/Remission status: remission status unspecified Qualified Code(s): F31.9 - Bipolar disorder, unspecified Code(s): F31.9 - Bipolar disorder, unspecified Status: Chronic Assessment and Plan: No acute issues at this time Continue home medications. She will need f/u with PCP and/or psychiatrist or counselor as outpatient (5) Depression: Qualifiers: Depression Type: unspecified Qualified Code(s): F32.9 - Major depressive disorder, single episode, unspecified Code(s): F32.9 - Major depressive disorder, single episode, unspecified Status: Chronic Assessment and Plan: No acute issues at this time Continue home medications (6) GABI (generalized anxiety disorder): Code(s): F41.1 - Generalized anxiety disorder Status: Acute Assessment and Plan: No acute issues at this time continue home medications DS: Summary Hospital Course Reason for hospitalization: UC flare, intractable n/v Hospital Course: Date of arrival: 03/04/20 Date of discharge: 03/08/20 Patient is a 24 yo F with history ulcerative colitis, IgG deficiency, history of Arielle esophagitis who presented to ED on 03/04 complaints of abdominal pain, nausea/vomiting. Patient has known UC flare which has been going on on and off since December. Ct abd pelvis in ED showed no CT correlate for patient's symptoms. Case was discussed with GI physician human resources operations specialist (Dr. Rust) and recommended patient be ad
[2020-03-08] MEDS: DEXAMETHASONE 4 MG TABLET PO (09:11)
[2020-03-08] MEDS: CEFDINIR 300 MG CAPSULE PO (09:11)
[2020-03-08] MEDS: QUEtiapine FUMARATE 100 MG TABLET 200 MG PO (09:12)
[2020-03-08] MEDS: PANTOPRAZOLE 40 MG TABLET PO (09:12)
[2020-03-08] MEDS: LIDOCAINE 5% PATCH 3 PATCH TRANSDERM (09:12)
== END 2020-03-08 10:30 | disposition home or self-care (01) | DRG 386 ==
LOC: ANHED 22:43 → ANH3MEDSUR 03-05 07:08
PROVIDERS: Emergency Medicine; Nurse Practitioner; Admitting Provider Student in an Organized Health Care Education/Training Program; Emergency Provider Emergency Medicine; Visit Provider Physician Assistant
DX: K51.90 Ulcerative colitis, unspecified, without complications (principal); D80.3 Selective deficiency of immunoglobulin G [IgG] subclasses; R11.2 Nausea with vomiting, unspecified; F12.10 Cannabis abuse, uncomplicated; F41.1 Generalized anxiety disorder; F31.9 Bipolar disorder, unspecified; Z79.899 Other long term (current) drug therapy; Z87.891 Personal history of nicotine dependence; Z88.0 Allergy status to penicillin; Z88.1 Allergy status to other antibiotic agents; Z88.2 Allergy status to sulfonamides
CPT/HCPCS: 36415; 74176; 80048; 80053; 81001; 81025; 82274; 83690; 83735; 85025; 85027; 87015; 87045; 87046; 87086; 87088; 87177; 87209; 87269; 87272; 87427; 89055; 96361; 96374; 96375; 99285; A9270; C9113; J0696; J1100; J1170; J1200; J1650; J2060; J2405; J2765; J2930; J3010; J3480; J7030; J7120; J8540

== ENCOUNTER 2020-03-26 17:42 | Emergency (ER) | payer BC, MEDICAID, SELFPAY ==
[2020-03-26 17:52] VITALS: BP 146/75; PULSE 96; RESP 18; TEMP 36.4; O2SAT 98
--- NOTE | 2020-03-26 18:11 | ED.ABDPAIN ---
HPI - Abdominal Pain General Chief Complaint: Wound/Laceration Stated Complaint: spider bite on back Time Seen by Provider: 03/26/20 17:44 Source: patient Mode of arrival: ambulatory Limitations: no limitations History of Present Illness HPI narrative: Patient is a 24-year-old female who presents with wound to the right lower back for the last couple of days noting aching pain worse with touch and palpation denies fever chills nausea vomiting presents in no distress just finished taking antibiotics after being had admitted with a Crohn's flare which she knows has resolved patient otherwise in the room in no distress resting comfortably is noted Related Data Home Medications Medication Instructions Recorded Confirmed quetiapine 200 mg PO BID 08/12/19 03/04/20 quetiapine 400 mg PO HS 08/12/19 03/04/20 Allergies Allergy/AdvReac Type Severity Reaction Status Date / Time acetaminophen Allergy Unknown Nausea Verified 03/26/20 17:55 hydrocodone Allergy Unknown Nausea Verified 03/26/20 17:55 metoclopramide Allergy Unknown Nausea and Verified 03/26/20 17:55 Vomiting nortriptyline Allergy Unknown Nausea and Verified 03/26/20 17:55 Vomiting Penicillins Allergy Unknown Nausea Verified 03/26/20 17:55 Sulfa (Sulfonamide Allergy Unknown Nausea and Verified 03/26/20 17:55 Antibiotics) Vomiting haloperidol [From Haldol] Allergy Swelling Verified 03/26/20 17:55 of Lip/Tongue/Throat levofloxacin [From Levaquin] Allergy Rash Verified 03/26/20 17:55 morphine AdvReac Nausea and Verified 03/26/20 17:55 Vomiting Review of Systems Review of Systems: All systems reviewed & are unremarkable except as noted in HPI and below PMFSH Past Medical History Medical History (Updated 03/26/20 @ 18:19 by Nabor Clark PA-C) Abdominal pain Anemia Anxiety Asthma Bipolar disorder Bloody diarrhea Arielle esophagitis Depression Dizziness Headache History of adverse reaction to anesthesia Hypertension IBS (irritable bowel syndrome) Immune deficiency disorder Immunodeficiency disorder, selective immunoglobulin Latex allergy Marijuana abuse Nausea and vomiting in adult Seasonal allergies Stomach pain Ulcerative colitis Weight gain Surgical History Surgical History Hx of cholecystectomy Family History Family History Father Acute myocardial infarction Mother Emphysema lung Chronic obstructive pulmonary disease Bipolar 1 disorder Sibling Selective immunoglobulin deficiency 2 sisters and a brother have it and all three of her children have it. Other Arthritis Diabetes mellitus Heart disease Hypertension Malignant neoplasm Neuropathy Social History Social History Smoking status: Former smoker Tobacco type: cigarettes Second hand tobacco smoke exposure: No Smoking end date: 03/09/13 Alcohol intake: never Substance use: current Substance use type: marijuana Additional living arrangements comments: Lives with Gender identity (if verbalized by the patient): Female Spiritual care concerns: No Exam Narrative: Exam Narrative: GENERAL: Well-appearing, well-nourished, and in no acute distress. HEAD: Normocephalic, atraumatic. EYES: PERRLA and EOMI. ENT: Nares clear, no rhinorrhea or epistaxis. Mucous membranes moist. EXTREMITIES: Normal range of motion. No edema. SKIN: Warm, dry, no rash. Patient with pustule to the right lower back with silver dollar sized area of redness surrounding nonfluctuant no lymphangitic streaking NEURO: No focal deficits. Alert and oriented x3. PSYCH: Normal mood and affect. Procedures Abscess I/D back: Date of Incision: 03/26/20 Time of Incision: 18:17 Side (if applicable): right Sedation/analgesia: none Technique: other (
== END 2020-03-26 19:26 | disposition home or self-care (01) ==
PROVIDERS: Emergency Provider Emergency Medicine; PCP Nurse Practitioner Family
DX: L02.212 Cutaneous abscess of back [any part, except buttock and flank] (principal); F41.9 Anxiety disorder, unspecified; F31.9 Bipolar disorder, unspecified; J45.909 Unspecified asthma, uncomplicated; I10 Essential (primary) hypertension; K58.9 Irritable bowel syndrome, unspecified; D84.9 Immunodeficiency, unspecified; Z87.891 Personal history of nicotine dependence
CPT/HCPCS: 87070; 87075; 87205; 99283

== ENCOUNTER 2020-05-04 16:02 | Emergency (ER) | payer BC, OTHER, SELFPAY ==
--- NOTE | ~2020-05-04 | XR_ITS ---
EXAMINATION: XR abdomen obstructive series DATE: 05/04/2020 20:57 INDICATION: Abdominal pain. Nausea and vomiting. TECHNIQUE: Upright and supine views of the abdomen on 3 radiographs were obtained. COMPARISON: CT abdomen and pelvis 03/05/2020 FINDINGS: There are no dilated loops of bowel. There is a small volume of stool in the colon. Surgica l clips in the right upper quadrant are likely from cholecystectomy. No free intraperitoneal gas. IMPRESSION: 1. Normal bowel gas pattern. Reviewed, dictated and finalized at location A. CO[facility]ER
[2020-05-04 16:37] VITALS: BP 117/64; PULSE 99; RESP 16; TEMP 36.4; O2SAT 98
[2020-05-04 16:55] LABS: Basophils Percent Auto 0.1 % (0.2-1.2); Hematocrit 39.4 % (37.0-47.0); Hemoglobin 13.5 g/dL (12.0-15.0); Immature Granulocyte Absolute 0.02 K/mm3 (0.00-0.031); Immature Granulocyte Percent A 0.2 % (0-0.5); Lymphocytes Absolute Auto 0.85 K/mm3 (0.9-3.2); Lymphocytes Percent Auto 8.9 % (18.3-44.2); Mean Corpuscular HGB Conc 34.3 g/dl (32-36); Mean Corpuscular Hemoglobin 28.8 pg (26-34); Mean Corpuscular Volume 84.2 fl (80-100); Mean Platelet Volume 9.7 fl (7.4-10.4); Monocytes Absolute Auto 0.8 K/mm3 (0.1-0.6); Monocytes Percent Auto 7.9 % (2.6-8.5); Neutrophils Absolute Auto 7.9 K/mm3 (1.3-6.7); Neutrophils Percent Auto 82.9 % (45.5-73.1); Platelet Count Result 232 k/mm3 (150-375); Red Blood Count 4.68 M/mm3 (4.2-5.4); Red Cell Distribution Width 15.7 % (11.5-14.5); White Blood Count 9.5 K/mm3 (4.5-10.0)
[2020-05-04 17:18] LABS: Alanine Aminotransferase 23 U/L (4-35); Albumin Level 4.3 g/dL (3.5-5.1); Alkaline Phosphatase 64 U/L (38-126); Anion Gap 10 mmol/L (8-16); Aspartate Amino Transferase 33 U/L (14-36); Bilirubin,Total 0.4 mg/dL (0.2-1.3); Blood Urea Nitrogen 9 mg/dL (7-17); Carbon Dioxide 23 mmol/L (22-30); Chloride 104 mmol/L (98-107); Estimated CRCL calculation 111 ml/min; Estimated Glomerular Filt Rate > 60; Glucose 132 mg/dL (65-105); Lipase 25 U/L (23-300); Potassium 2.9 mmol/L (3.4-5.0); Sodium 137 mmol/L (137-145)
--- NOTE | 2020-05-04 19:13 | ED.GENADULT ---
HPI - General Adult General Chief complaint: Abdominal Pain Stated complaint: vomiting Time Seen by Provider: 05/04/20 19:07 Source: RN notes reviewed History of Present Illness HPI narrative: Patient presents emergency department from home for abdominal pain. Patient states pain began 4 days ago. Diffuse throughout the abdomen worse in the bilateral lower quadrants. States is associated with numerous episodes of nausea vomiting as well as a fever of up to 101 degrees earlier today she states she has a history of ulcerative colitis and is followed by Dr. Rust but is currently not any medication for ulcerative colitis she denies any chest pain shortness of breath diarrhea or any other symptoms states she took Tylenol at approximately 3 PM today Related Data Home Medications Medication Instructions Recorded Confirmed quetiapine 200 mg PO BID 08/12/19 03/04/20 quetiapine 400 mg PO HS 08/12/19 03/04/20 Allergies Allergy/AdvReac Type Severity Reaction Status Date / Time acetaminophen Allergy Unknown Nausea Verified 03/26/20 17:55 hydrocodone Allergy Unknown Nausea Verified 03/26/20 17:55 metoclopramide Allergy Unknown Nausea and Verified 03/26/20 17:55 Vomiting nortriptyline Allergy Unknown Nausea and Verified 03/26/20 17:55 Vomiting Penicillins Allergy Unknown Nausea Verified 03/26/20 17:55 Sulfa (Sulfonamide Allergy Unknown Nausea and Verified 03/26/20 17:55 Antibiotics) Vomiting haloperidol [From Haldol] Allergy Swelling Verified 03/26/20 17:55 of Lip/Tongue/Throat levofloxacin [From Levaquin] Allergy Rash Verified 03/26/20 17:55 morphine AdvReac Nausea and Verified 03/26/20 17:55 Vomiting Review of Systems Review of Systems: Narrative: Gen.: Denies fevers or chills ENT: Denies congestion Respiratory: Denies shortness of breath or cough CV: Denies chest pain or palpitations GI: See HPI Musculoskeletal: Denies back pain or muscle pain Neuro: Denies numbness, tingling, weakness or focal weakness Skin: Denies rash Except as documented, all other systems reviewed and negative FOR[facility]LY [facility] Past Medical History Medical History (Updated 05/04/20 @ 21:55 by Indio Reagan DO) Abdominal pain Anemia Anxiety Asthma Bipolar disorder Bloody diarrhea Arielle esophagitis Depression Dizziness Headache History of adverse reaction to anesthesia Hypertension IBS (irritable bowel syndrome) Immune deficiency disorder Immunodeficiency disorder, selective immunoglobulin Latex allergy Marijuana abuse Nausea and vomiting in adult Seasonal allergies Stomach pain Ulcerative colitis Weight gain Surgical History Surgical History Hx of cholecystectomy Family History Family History Father Acute myocardial infarction Mother Emphysema lung Chronic obstructive pulmonary disease Bipolar 1 disorder Sibling Selective immunoglobulin deficiency 2 sisters and a brother have it and all three of her children have it. Other Arthritis Diabetes mellitus Heart disease Hypertension Malignant neoplasm Neuropathy Social History Social History Smoking status: Former smoker Tobacco type: cigarettes Second hand tobacco smoke exposure: No Smoking end date: 03/09/13 Alcohol intake: never Substance use: current Substance use type: marijuana Additional living arrangements comments: Lives with Gender identity (if verbalized by the patient): Female Spiritual care concerns: No Exam Narrative: Exam Narrative: APPEARANCE: No acute distress, nontoxic, resting in bed EYES: EOMI HEENT: Normocephalic, atraumatic, OMM RESPIRATORY: No respiratory distress Clear to auscultation bilaterally with no rhonchi wheezing or rales. CARDIOVASCULAR: Regular rate and rhythm without murmurs rubs or gallops. A
--- NOTE | 2020-05-04 19:29 | PC.NURSE ---
this rn attmepted IV, no success. charge nurse aware
[2020-05-04 19:38] LABS: Add Urine Microscopic? YES; Appearance Urine Cloudy (Clear); Bacteria Urine Trace /hpf; Bilirubin Urine Negative (Negative); Blood Urine Negative (Negative); Color Urine Yellow (Yellow); Glucose Urine UA Negative (Negative); Ketones Urine Trace mg/dL (Negative); Leukocyte Esterase Ur Trace LEU/UL (Negative); Mucus Urine Heavy /lpf; Nitrate Urine Negative (Negative); Protein Urine 2+ mg/dL (Negative); RBC Urine 0-2 /hpf (0-2); Specific Grav Ur 1.029 (1.001-1.035); Squamous Epithelial Cell Urine Many /hpf (Few); Urobilinogen Urine Negative mg/dL (<2.0)
[2020-05-04] MEDS: ONDANSETRON INJ 4 MG/2 ML VIAL IV PUSH (19:56)
[2020-05-04] MEDS: SODIUM CHLORIDE 0.9% IV 1,000 ML 999 ML IV CONT (19:56)
[2020-05-04] MEDS: HYDROmorphone HCL INJ (*CRX) 1 MG/ML SYR 0.5 MG IV PUSH (20:11)
[2020-05-04 20:59] VITALS: BP 110/75; PULSE 90; RESP 16; O2SAT 98
[2020-05-04] MEDS: POTASSIUM CHLORIDE 20 MEQ PACKET (FOR LIQUID) 40 MEQ PO (21:20)
[2020-05-04] MEDS: methylPREDNISolone SOD SUCC 40 MG VIAL IV PUSH (22:02)
[2020-05-04 22:09] VITALS: BP 118/79; PULSE 85; RESP 18; O2SAT 99
== END 2020-05-04 22:15 | disposition home or self-care (01) ==
PROVIDERS: Emergency Medicine; Emergency Provider Emergency Medicine; PCP Nurse Practitioner Family
DX: K51.90 Ulcerative colitis, unspecified, without complications (principal); E87.6 Hypokalemia; F41.9 Anxiety disorder, unspecified; F31.9 Bipolar disorder, unspecified; D84.9 Immunodeficiency, unspecified; Z87.891 Personal history of nicotine dependence
CPT/HCPCS: 36415; 74019; 80053; 81001; 81025; 83690; 85025; 96361; 96374; 96375; 99284; A9270; J1170; J2405; J2920; J7030

== ENCOUNTER 2020-05-21 20:38 | Emergency (ER) | payer BC, OTHER, SELFPAY ==
--- NOTE | ~2020-05-21 | CT_ITS ---
CT soft tissue neck w con DATE: 05/21/2020 23:02 INDICATION: Facial and tongue swelling TECHNIQUE: Axial images and subsequent sagittal and coronal reconstructions were obtained following i ntravenous injection of 75 cc Omnipaque 350 intravenous contrast material. COMPARISON: None FINDINGS: No cervical mass lesion or lymphadenopathy is evident. The carotid arteries and internal jugular veins are patent The parotid glands and submandibular glands are symmetric and normal in appearance. Normal size and h omogeneous enhancement of the thyroid gland. No prevertebral soft tissue swelling or emphysema. Normal size of the epiglottis. Pharyngeal pharyngeal and tracheal airway appear patent and without significant compromise. There nye s appear to be soft tissue swelling of the tongue as clinically indicated. There is an approximately 1.3 cm mucous retention cyst or polyp in the floor of the right maxillary s inus. The paranasal sinuses and mastoid air cells otherwise appear normally developed and aerated. The orbital contents appear normal. No facial soft tissue swelling is evident. The lung apices are clear. IMPRESSION: Soft tissue swelling the region of the tongue is suggested as clinically indicated Nasopharyngeal, pharyngeal and tracheal airway appear patent Reviewed, dictated and finalized at [facility]. Reviewed, dictated and finalized at location [facility]. IMPRESSION: Soft tissue swelling the region of the tongue is suggested as clini melany indicated Nasopharyngeal, pharyngeal and tracheal airway appear patent
[2020-05-21 20:39] VITALS: BP 137/95; PULSE 127; RESP 18; TEMP 36.1; O2SAT 98
--- NOTE | 2020-05-21 21:02 | ED.GENADULT ---
HPI - General Adult General Chief complaint: Unspecified Stated complaint: swollen tongue/ face Time Seen by Provider: 05/21/20 21:00 Source: patient Mode of arrival: ambulatory Limitations: no limitations History of Present Illness HPI narrative: This 25-year-old female with a long medical history presents today with complaint of right-sided facial swelling, tongue swelling, and difficulty swallowing. She denies fever. She states that she does have some broken teeth and is waiting to have them extracted until she gets some money. She is taken nothing for the pain. She has recently been on prednisone, approximately 4 weeks ago she finished her taper for her ulcerative colitis. Onset (ago): hour(s) Location: face Severity: mild Relieving factors: none Associated symptoms: denies other symptoms Related Data Home Medications Medication Instructions Recorded Confirmed quetiapine 200 mg PO BID 08/12/19 03/04/20 quetiapine 400 mg PO HS 08/12/19 03/04/20 Allergies Allergy/AdvReac Type Severity Reaction Status Date / Time acetaminophen Allergy Unknown Nausea Verified 05/21/20 22:27 hydrocodone Allergy Unknown Nausea Verified 05/21/20 22:27 metoclopramide Allergy Unknown Nausea and Verified 05/21/20 22:27 Vomiting nortriptyline Allergy Unknown Nausea and Verified 05/21/20 22:27 Vomiting Penicillins Allergy Unknown Nausea Verified 05/21/20 22:27 Sulfa (Sulfonamide Allergy Unknown Nausea and Verified 05/21/20 22:27 Antibiotics) Vomiting haloperidol [From Haldol] Allergy Swelling Verified 05/21/20 22:27 of Lip/Tongue/Throat levofloxacin [From Levaquin] Allergy Rash Verified 05/21/20 22:27 morphine AdvReac Nausea and Verified 05/21/20 22:27 Vomiting Review of Systems Review of Systems: All systems reviewed & are unremarkable except as noted in HPI and below PMFSH Past Medical History Medical History (Updated 05/21/20 @ 23:48 by Leidy Guy PA-C) Abdominal pain Anemia Anxiety Asthma Bipolar disorder Bloody diarrhea Arielle esophagitis Depression Dizziness Headache History of adverse reaction to anesthesia Hypertension IBS (irritable bowel syndrome) Immune deficiency disorder Immunodeficiency disorder, selective immunoglobulin Latex allergy Marijuana abuse Nausea and vomiting in adult Seasonal allergies Stomach pain Ulcerative colitis Weight gain Surgical History Surgical History Hx of cholecystectomy Family History Family History Father Acute myocardial infarction Mother Emphysema lung Chronic obstructive pulmonary disease Bipolar 1 disorder Sibling Selective immunoglobulin deficiency 2 sisters and a brother have it and all three of her children have it. Other Arthritis Diabetes mellitus Heart disease Hypertension Malignant neoplasm Neuropathy Social History Social History Smoking status: Former smoker Tobacco type: cigarettes Second hand tobacco smoke exposure: No Smoking end date: 03/09/13 Alcohol intake: never Substance use: current Substance use type: marijuana Additional living arrangements comments: Lives with Gender identity (if verbalized by the patient): Female Spiritual care concerns: No Exam Const: General: healthy appearing, comfortable and no acute distress HENMT: Ears: external ears normal and TM's normal bilaterally Face and sinus: edema (mild on right jaw.) on the right and Facial tenderness on exam of face and sinuses (jaw line) on the right Mouth: Yes Normal oral and palatal mucosa present and Yes tongue abnormal (painful to protrude.) Teeth and gingiva: caries and poor dentition Throat: posterior oropharynx normal and uvula midline Neck: Lymphatic: no lymphadenopathy noted Skin: General skin exam: normal color Neuro:
[2020-05-21 21:59] LABS: Basophils Absolute Auto 0.1 K/mm3 (0.0-0.1); Basophils Percent Auto 0.5 % (0.2-1.2); Eosinophils Absolute Auto 0.1 K/mm3 (0-0.3); Eosinophils Percent Auto 1.1 % (0-4.4); Hematocrit 36.8 % (37.0-47.0); Hemoglobin 12.2 g/dL (12.0-15.0); Immature Granulocyte Absolute 0.01 K/mm3 (0.00-0.031); Immature Granulocyte Percent A 0.1 % (0-0.5); Immature Platelet Fraction Pct 3.2 % (0.9-11.2); Lymphocytes Absolute Auto 3.16 K/mm3 (0.9-3.2); Lymphocytes Percent Auto 31.9 % (18.3-44.2); Mean Corpuscular HGB Conc 33.2 g/dl (32-36); Mean Corpuscular Hemoglobin 28.3 pg (26-34); Mean Corpuscular Volume 85.4 fl (80-100); Mean Platelet Volume 10.7 fl (7.4-10.4); Monocytes Absolute Auto 0.7 K/mm3 (0.1-0.6); Monocytes Percent Auto 7.4 % (2.6-8.5); Neutrophils Absolute Auto 5.9 K/mm3 (1.3-6.7); Platelet Count Result 248 k/mm3 (150-375); Red Blood Count 4.31 M/mm3 (4.2-5.4); Red Cell Distribution Width 15.7 % (11.5-14.5); White Blood Count 9.9 K/mm3 (4.5-10.0)
[2020-05-21] MEDS: predniSONE 40 MG, predniSONE 10 MG 50 MG PO (23:59)
[2020-05-21] MEDS: CLINDAMYCIN HCL 150 MG CAP 600 MG PO (23:59)
[2020-05-22 00:05] VITALS: BP 133/83; PULSE 106; RESP 16; O2SAT 98
== END 2020-05-22 00:05 | disposition home or self-care (01) ==
PROVIDERS: Physician Assistant; Emergency Provider Emergency Medicine; PCP Nurse Practitioner Family
DX: K14.8 Other diseases of tongue (principal); K03.81 Cracked tooth; D64.9 Anemia, unspecified; J45.909 Unspecified asthma, uncomplicated; I10 Essential (primary) hypertension; K58.9 Irritable bowel syndrome, unspecified; F41.9 Anxiety disorder, unspecified; F31.9 Bipolar disorder, unspecified; Z87.891 Personal history of nicotine dependence
CPT/HCPCS: 36415; 70491; 81025; 85025; 85055; 99284; A9270; J7512; Q9967

== ENCOUNTER 2020-07-05 20:12 | Emergency (ER) | payer BC, OTHER, SELFPAY ==
--- NOTE | ~2020-07-05 | XR_ITS ---
EXAMINATION: XR abdomen obstructive series DATE: 07/05/2020 22:52 INDICATION: Lower abdominal pain TECHNIQUE: Frontal supine and upright views of the abdomen were obtained. COMPARISON: 05/04/2020 FINDINGS: Cholecystectomy clips in the right upper quadrant. Air-fluid levels in the colon suggestive of diarrh ea. No dilated loops of gas-filled bowel to suggest obstruction. No free intraperitoneal gas. Small p hlebolith in the left hemipelvis. Visualized lung bases are clear. Heart size is normal. IMPRESSION: 1. No free intraperitoneal gas or dilated gas-filled loops of bowel to suggest obstruction. Reviewed, dictated and finalized at location [facility].
[2020-07-05 20:16] VITALS: BP 129/72; PULSE 121; RESP 20; TEMP 35.8; O2SAT 96
[2020-07-05 20:35] LABS: Basophils Percent Auto 0.5 % (0.2-1.2); Eosinophils Absolute Auto 0.1 K/mm3 (0-0.3); Eosinophils Percent Auto 0.6 % (0-4.4); Hematocrit 40.7 % (37.0-47.0); Hemoglobin 13.5 g/dL (12.0-15.0); Immature Granulocyte Absolute 0.02 K/mm3 (0.00-0.031); Immature Granulocyte Percent A 0.2 % (0-0.5); Lymphocytes Absolute Auto 2.28 K/mm3 (0.9-3.2); Lymphocytes Percent Auto 26.9 % (18.3-44.2); Mean Corpuscular HGB Conc 33.2 g/dl (32-36); Mean Corpuscular Hemoglobin 28.7 pg (26-34); Mean Corpuscular Volume 86.4 fl (80-100); Mean Platelet Volume 10.2 fl (7.4-10.4); Monocytes Absolute Auto 0.5 K/mm3 (0.1-0.6); Monocytes Percent Auto 5.8 % (2.6-8.5); Neutrophils Absolute Auto 5.6 K/mm3 (1.3-6.7); Platelet Count Result 255 k/mm3 (150-375); Red Blood Count 4.71 M/mm3 (4.2-5.4); Red Cell Distribution Width 15.6 % (11.5-14.5); White Blood Count 8.5 K/mm3 (4.5-10.0)
[2020-07-05 20:47] LABS: Albumin Level 4.4 g/dL (3.5-5.1); Alkaline Phosphatase 66 U/L (38-126); Anion Gap 11 mmol/L (8-16); Aspartate Amino Transferase 26 U/L (14-36); Bilirubin,Total 0.2 mg/dL (0.2-1.3); Blood Urea Nitrogen 11 mg/dL (7-17); Carbon Dioxide 22 mmol/L (22-30); Chloride 107 mmol/L (98-107); Estimated CRCL calculation 97 ml/min; Estimated Glomerular Filt Rate > 60; Glucose 147 mg/dL (65-105); Lipase 30 U/L (23-300); Potassium 3.3 mmol/L (3.4-5.0); Sodium 140 mmol/L (137-145)
[2020-07-05 20:56] LABS: Alanine Aminotransferase 18 U/L (4-35)
[2020-07-05 22:09] VITALS: BP 115/67; PULSE 98; RESP 18; O2SAT 99
[2020-07-05 22:38] LABS: Add Urine Microscopic? YES; Appearance Urine Cloudy (Clear); Bacteria Urine Trace /hpf; Bilirubin Urine 1+ (Negative); Blood Urine Negative (Negative); Color Urine Amber (Yellow); Glucose Urine UA Negative (Negative); Ketones Urine Negative (Negative); Leukocyte Esterase Ur 2+ LEU/UL (Negative); Mucus Urine Heavy /lpf; Nitrate Urine Negative (Negative); Protein Urine 2+ mg/dL (Negative); Squamous Epithelial Cell Urine Many /hpf (Few)
[2020-07-05 22:39] LABS: Specific Grav Ur 1.032 (1.001-1.035)
[2020-07-05] MEDS: LACTATED RINGERS 1,000 ML 999 ML IV CONT (22:49)
[2020-07-05] MEDS: LORazepam INJ (*CRX) 2 MG/ML VIAL 1 MG IV PUSH (22:49)
[2020-07-05] MEDS: ONDANSETRON INJ 4 MG/2 ML VIAL IV PUSH (22:49)
[2020-07-05] MEDS: FAMOTIDINE 20 MG/2 ML VIAL IV PUSH (22:49)
--- NOTE | 2020-07-05 23:24 | ED.GENADULT ---
HPI - General Adult General Chief complaint: Abdominal Pain Stated complaint: Vomiting/ Hx ulcerative colitis Time Seen by Provider: 07/05/20 22:13 Source: patient, family, RN notes reviewed and old records reviewed Mode of arrival: ambulatory Limitations: no limitations History of Present Illness HPI narrative: Patient is 25-year-old female who presents to emergency department for evaluation of abdominal pain with nausea and vomiting has been having some emesis and discomfort over the last week which worsened in the last 2 days also notes she is having some loose stools with a small amount of blood which is normal for her patient notes she has frequent ulcerative colitis flares of this nature requiring ER trips and hydration and medications with improvement patient denies any hematemesis fever chills or other complaints presents uncomfortable but not in distress Related Data Home Medications Medication Instructions Recorded Confirmed quetiapine 200 mg PO BID 08/12/19 03/04/20 quetiapine 400 mg PO HS 08/12/19 03/04/20 Allergies Allergy/AdvReac Type Severity Reaction Status Date / Time acetaminophen Allergy Unknown Nausea Verified 05/21/20 22:27 hydrocodone Allergy Unknown Nausea Verified 05/21/20 22:27 metoclopramide Allergy Unknown Nausea and Verified 05/21/20 22:27 Vomiting nortriptyline Allergy Unknown Nausea and Verified 05/21/20 22:27 Vomiting Penicillins Allergy Unknown Nausea Verified 05/21/20 22:27 Sulfa (Sulfonamide Allergy Unknown Nausea and Verified 05/21/20 22:27 Antibiotics) Vomiting haloperidol [From Haldol] Allergy Swelling Verified 05/21/20 22:27 of Lip/Tongue/Throat levofloxacin [From Levaquin] Allergy Rash Verified 05/21/20 22:27 morphine AdvReac Nausea and Verified 05/21/20 22:27 Vomiting Review of Systems Review of Systems: All systems reviewed & are unremarkable except as noted in HPI and below PMFSH Past Medical History Medical History (Updated 07/06/20 @ 00:49 by Nabor Clark PA-C) Abdominal pain Anemia Anxiety Asthma Bipolar disorder Bloody diarrhea Arielle esophagitis Depression Dizziness Headache History of adverse reaction to anesthesia Hypertension IBS (irritable bowel syndrome) Immune deficiency disorder Immunodeficiency disorder, selective immunoglobulin Latex allergy Marijuana abuse Nausea and vomiting in adult Seasonal allergies Stomach pain Ulcerative colitis Weight gain Surgical History Surgical History Hx of cholecystectomy Family History Family History Father Acute myocardial infarction Mother Emphysema lung Chronic obstructive pulmonary disease Bipolar 1 disorder Sibling Selective immunoglobulin deficiency 2 sisters and a brother have it and all three of her children have it. Other Arthritis Diabetes mellitus Heart disease Hypertension Malignant neoplasm Neuropathy Social History Social History Smoking status: Former smoker Tobacco type: cigarettes Second hand tobacco smoke exposure: No Smoking end date: 03/09/13 Alcohol intake: never Substance use: current Substance use type: marijuana Additional living arrangements comments: Lives with Gender identity (if verbalized by the patient): Female Spiritual care concerns: No Exam Narrative: Exam Narrative: GENERAL: Ill-appearing, well-nourished, uncomfortable and in no acute distress. HEAD: Normocephalic, atraumatic. EYES: PERRLA and EOMI. ENT: Nares clear, no rhinorrhea or epistaxis. Mucous membranes moist. CHEST: Clear to auscultation. No respiratory distress. No wheezes rales or rhonchi HEART: Regular rate and rhythm. No murmur heard. Normal peripheral pulses. ABDOMEN: Soft, mild tenderness of the left abdomen no rebound or guarding, nondistende
[2020-07-05] MEDS: DEXTROSE 5%/LACTATED RINGERS 1,000 ML 999 ML IV CONT (23:43)
[2020-07-06] MEDS: HYDROmorphone HCL INJ (*CRX) 1 MG/ML SYR 0.5 MG IV PUSH (01:06)
[2020-07-06] MEDS: HYOSCYAMINE SULFATE 0.125 MG TABLET PO (01:10)
[2020-07-06 01:12] VITALS: BP 106/56; PULSE 94; RESP 18; O2SAT 100
== END 2020-07-06 01:44 | disposition home or self-care (01) ==
PROVIDERS: Emergency Provider Emergency Medicine; PCP Nurse Practitioner Family
DX: R10.9 Unspecified abdominal pain (principal); K51.90 Ulcerative colitis, unspecified, without complications; I10 Essential (primary) hypertension; D84.9 Immunodeficiency, unspecified; F41.9 Anxiety disorder, unspecified; F31.9 Bipolar disorder, unspecified; Z87.891 Personal history of nicotine dependence
CPT/HCPCS: 36415; 74019; 80053; 81001; 81025; 83690; 85025; 87086; 87088; 96361; 96374; 96375; 99284; A9270; J1170; J2060; J2405; J7120; J7121

== ENCOUNTER 2020-07-12 19:46 | Emergency (ER) | payer BC, OTHER, SELFPAY ==
--- NOTE | ~2020-07-12 | CT_ITS ---
EXAMINATION: CT abdomen pelvis wo con DATE: 07/12/2020 23:10 INDICATION: Abdominal pain. TECHNIQUE: Computed tomography (CT) of the abdomen and pelvis was performed without intravenous contr ast. Automated exposure control and iterative reconstruction technique were employed. The dose-length product was 423.78 mGy-cm. COMPARISON: CT abdomen and pelvis 03/05/2020 FINDINGS: The visualized portions of the lung bases demonstrate mild atelectasis. No pleural effusion . The heart size is normal. No pericardial effusion. The liver and spleen are normal. There are car es of cholecystectomy. The pancreas, adrenal glands, and kidneys are normal. There is no urolithiasis . There are no dilated loops of bowel. The appendix is normal. There are no pathologically enlarged l ymph nodes. There is trace pelvic ascites. The bones are unremarkable. IMPRESSION: 1. No etiology for the patient's symptoms. Reviewed, dictated and finalized at location [facility].
[2020-07-12 19:52] VITALS: BP 126/77; PULSE 116; RESP 18; TEMP 36.2; O2SAT 99
[2020-07-12 20:45] LABS: Basophils Percent Auto 0.4 % (0.2-1.2); Eosinophils Absolute Auto 0.2 K/mm3 (0-0.3); Eosinophils Percent Auto 1.8 % (0-4.4); Hematocrit 39.7 % (37.0-47.0); Hemoglobin 13.2 g/dL (12.0-15.0); Immature Granulocyte Absolute 0.02 K/mm3 (0.00-0.031); Immature Granulocyte Percent A 0.2 % (0-0.5); Lymphocytes Absolute Auto 3.02 K/mm3 (0.9-3.2); Lymphocytes Percent Auto 33.9 % (18.3-44.2); Mean Corpuscular HGB Conc 33.2 g/dl (32-36); Mean Corpuscular Hemoglobin 28.5 pg (26-34); Mean Corpuscular Volume 85.7 fl (80-100); Mean Platelet Volume 10.1 fl (7.4-10.4); Monocytes Absolute Auto 0.6 K/mm3 (0.1-0.6); Neutrophils Absolute Auto 5.1 K/mm3 (1.3-6.7); Neutrophils Percent Auto 56.7 % (45.5-73.1); Platelet Count Result 268 k/mm3 (150-375); Red Blood Count 4.63 M/mm3 (4.2-5.4); Red Cell Distribution Width 16.1 % (11.5-14.5); White Blood Count 8.9 K/mm3 (4.5-10.0)
[2020-07-12] MEDS: HYDROmorphone HCL INJ (*CRX) 1 MG/ML SYR 0.5 MG IV PUSH (21:27)
[2020-07-12] MEDS: ONDANSETRON INJ 4 MG/2 ML VIAL IV PUSH ×2 (21:27→23:52)
[2020-07-12 21:46] LABS: Add Urine Microscopic? YES; Appearance Urine Cloudy (Clear); Bacteria Urine Trace /hpf; Bilirubin Urine Negative (Negative); Blood Urine Negative (Negative); Color Urine Yellow (Yellow); Glucose Urine UA Negative (Negative); Ketones Urine Negative (Negative); Leukocyte Esterase Ur 1+ LEU/UL (Negative); Mucus Urine Few /lpf; Nitrate Urine Negative (Negative); Protein Urine 2+ mg/dL (Negative); Specific Grav Ur 1.026 (1.001-1.035); Squamous Epithelial Cell Urine Many /hpf (Few); WBC Urine 0-3 /hpf
[2020-07-12 21:57] LABS: Pregnancy On Board Control Positive; Urine Pregnancy Test Negative
[2020-07-12 22:18] LABS: Amphetamine Screen Urine Negative (Negative); Barbiturate Screen Urine Negative (Negative); Benzodiazepines Screen Urine Negative (Negative); Cannabinoid Screen Urine Positive (Negative); Cocaine Screen Urine Negative (Negative); Methadone Screen Urine Negative (Negative); Opiate Screen Urine Negative (Negative); Phencyclidine Screen Urine Negative (Negative)
[2020-07-12 22:22] LABS: Alanine Aminotransferase 16 U/L (4-35); Alkaline Phosphatase 74 U/L (38-126); Anion Gap 6 mmol/L (8-16); Aspartate Amino Transferase 28 U/L (14-36); Bilirubin,Total 0.1 mg/dL (0.2-1.3); Blood Urea Nitrogen 13 mg/dL (7-17); Calcium 9.4 mg/dL (8.4-10.2); Carbon Dioxide 26 mmol/L (22-30); Chloride 106 mmol/L (98-107); Estimated CRCL calculation 112 ml/min; Estimated Glomerular Filt Rate > 60; Glucose 104 mg/dL (65-105); Lipase 61 U/L (23-300); Potassium 3.8 mmol/L (3.4-5.0); Sodium 138 mmol/L (137-145)
--- NOTE | 2020-07-12 22:43 | ED.GENADULT ---
HPI - General Adult General Chief complaint: Abdominal Pain Stated complaint: abd pain, n/v Time Seen by Provider: 07/12/20 21:04 History of Present Illness HPI narrative: Patient is a 25-year-old female who presents the emergency department with chief complaint of abdominal pain. Patient reports that she has history of ulcerative colitis and was seen in the emergency department fairly recently after she had been having abdominal pain nausea and vomiting. Patient was treated with a course of steroids and given antiemetics the patient reports he is continued to have nausea and vomiting at home. Patient denies fever reports that she has diffuse pain throughout her abdomen. Related Data Home Medications Medication Instructions Recorded Confirmed quetiapine 200 mg PO BID 08/12/19 03/04/20 quetiapine 400 mg PO HS 08/12/19 03/04/20 cariprazine [Vraylar] mg 07/12/20 Allergies Allergy/AdvReac Type Severity Reaction Status Date / Time acetaminophen Allergy Unknown Nausea Verified 07/12/20 19:57 hydrocodone Allergy Unknown Nausea Verified 07/12/20 19:57 metoclopramide Allergy Unknown Nausea and Verified 07/12/20 19:57 Vomiting nortriptyline Allergy Unknown Nausea and Verified 07/12/20 19:57 Vomiting Penicillins Allergy Unknown Nausea Verified 07/12/20 19:57 Sulfa (Sulfonamide Allergy Unknown Nausea and Verified 07/12/20 19:57 Antibiotics) Vomiting haloperidol [From Haldol] Allergy Swelling Verified 07/12/20 19:57 of Lip/Tongue/Throat levofloxacin [From Levaquin] Allergy Rash Verified 07/12/20 19:57 morphine AdvReac Nausea and Verified 07/12/20 19:57 Vomiting Review of Systems Review of Systems: Narrative: A 10 system review of systems was completed on the patient and is negative except for what is stated in the HPI. Nursing and ancillary documentation was reviewed. [facility] Past Medical History Medical History (Updated 07/13/20 @ 00:45 by Patrick John MD) Abdominal pain Anemia Anxiety Asthma Bipolar disorder Bloody diarrhea Arielle esophagitis Depression Dizziness Headache History of adverse reaction to anesthesia Hypertension IBS (irritable bowel syndrome) Immune deficiency disorder Immunodeficiency disorder, selective immunoglobulin Latex allergy Marijuana abuse Nausea and vomiting in adult Seasonal allergies Stomach pain Ulcerative colitis Weight gain Surgical History Surgical History Hx of cholecystectomy Family History Family History Father Acute myocardial infarction Mother Emphysema lung Chronic obstructive pulmonary disease Bipolar 1 disorder Sibling Selective immunoglobulin deficiency 2 sisters and a brother have it and all three of her children have it. Other Arthritis Diabetes mellitus Heart disease Hypertension Malignant neoplasm Neuropathy Social History Social History Smoking status: Former smoker Tobacco type: cigarettes Second hand tobacco smoke exposure: No Smoking end date: 03/09/13 Alcohol intake: never Substance use: current Substance use type: marijuana Additional living arrangements comments: Lives with Gender identity (if verbalized by the patient): Female Sexual Orientation (if Verbalized by the Patient): Straight or Heterosexual Spiritual care concerns: No Exam Narrative: Exam Narrative: GENERAL: Well-appearing, well-nourished, and in no acute distress. HEAD: Normocephalic, atraumatic. EYES: PERRLA and EOMI. ENT: Nares clear, no rhinorrhea or epistaxis. Mucous membranes moist. NECK: Supple. CHEST: Clear to auscultation. No respiratory distress. HEART: Regular rate and rhythm. No murmur heard. Normal peripheral pulses. ABDOMEN: Soft, diffuse tenderness to palpation,, nondistended, nor
[2020-07-12] MEDS: HYDROmorphone HCL INJ (*CRX) 1 MG/ML SYR IV PUSH ×2 (22:57→23:53)
[2020-07-12] MEDS: SODIUM CHLORIDE 0.9% IV 1,000 ML 999 ML IV CONT (23:53)
[2020-07-13 00:02] VITALS: BP 112/57; PULSE 103; RESP 18; O2SAT 99
[2020-07-13] MEDS: methylPREDNISolone SOD SUCC 125 MG VIAL IV PUSH (01:14)
[2020-07-13] MEDS: HYDROmorphone HCL INJ (*CRX) 1 MG/ML SYR IV PUSH (01:54)
[2020-07-13 02:00] VITALS: BP 115/61; PULSE 98; RESP 18; O2SAT 99
== END 2020-07-13 02:00 | disposition home or self-care (01) ==
PROVIDERS: Emergency Medicine Emergency Medical Services; Emergency Provider Emergency Medicine; PCP Nurse Practitioner Family
DX: R10.9 Unspecified abdominal pain (principal); K51.90 Ulcerative colitis, unspecified, without complications; R11.2 Nausea with vomiting, unspecified; F41.9 Anxiety disorder, unspecified; F31.9 Bipolar disorder, unspecified; J45.909 Unspecified asthma, uncomplicated; I10 Essential (primary) hypertension; D84.9 Immunodeficiency, unspecified; Z87.891 Personal history of nicotine dependence; Z79.899 Other long term (current) drug therapy
CPT/HCPCS: 36415; 74176; 80053; 80307; 81001; 81025; 83690; 85025; 96361; 96374; 96375; 96376; 99284; J1170; J2405; J2930; J7030

== ENCOUNTER 2020-07-18 17:39 | Emergency (ER) | payer BC, OTHER, SELFPAY ==
--- NOTE | ~2020-07-18 | XR_ITS ---
EXAMINATION: XR abdomen obstructive series EXAM DATE: 07/18/2020 20:24 INDICATION: Blood in stool, history of ulcerative colitis. Abdominal pain and vomiting. TECHNIQUE: Frontal upright projection of the upper abdomen, frontal projection of the lower abdomen f or interpretation. Comparison is made to prior examination from 07/05/2020. FINDINGS: There are cholecystectomy clips. There is moderate amount of colonic stool and gas. No small bowel dilation, nonobstructive bowel gas pattern. There are no suspicious calcifications iden tified. There is no organomegaly suspected. The bones are unremarkable. There is no free intrap eritoneal air. The lung bases are clear. IMPRESSION: Moderate amount of colonic stool. Reviewed, dictated and finalized at location [facility].
[2020-07-18 17:40] VITALS: BP 129/96; PULSE 84; RESP 16; TEMP 36.7; O2SAT 100
[2020-07-18 18:09] LABS: Alanine Aminotransferase 19 U/L (4-35); Albumin Level 4.5 g/dL (3.5-5.1); Alkaline Phosphatase 78 U/L (38-126); Anion Gap 5 mmol/L (8-16); Aspartate Amino Transferase 27 U/L (14-36); Basophils Absolute Auto 0.1 K/mm3 (0.0-0.1); Basophils Percent Auto 0.5 % (0.2-1.2); Bilirubin,Total 0.3 mg/dL (0.2-1.3); Blood Urea Nitrogen 11 mg/dL (7-17); Calcium 9.9 mg/dL (8.4-10.2); Carbon Dioxide 28 mmol/L (22-30); Chloride 106 mmol/L (98-107); Eosinophils Absolute Auto 0.1 K/mm3 (0-0.3); Eosinophils Percent Auto 1.2 % (0-4.4); Estimated CRCL calculation 112 ml/min; Estimated Glomerular Filt Rate > 60; Glucose 100 mg/dL (65-105); Hematocrit 41.9 % (37.0-47.0); Hemoglobin 14.1 g/dL (12.0-15.0); Immature Granulocyte Absolute 0.04 K/mm3 (0.00-0.031); Immature Granulocyte Percent A 0.4 % (0-0.5); Lymphocytes Absolute Auto 2.97 K/mm3 (0.9-3.2); Lymphocytes Percent Auto 31.6 % (18.3-44.2); Mean Corpuscular HGB Conc 33.7 g/dl (32-36); Mean Corpuscular Hemoglobin 28.3 pg (26-34); Mean Corpuscular Volume 84.1 fl (80-100); Mean Platelet Volume 9.7 fl (7.4-10.4); Monocytes Absolute Auto 0.6 K/mm3 (0.1-0.6); Monocytes Percent Auto 6.5 % (2.6-8.5); Neutrophils Absolute Auto 5.6 K/mm3 (1.3-6.7); Neutrophils Percent Auto 59.8 % (45.5-73.1); Platelet Count Result 319 k/mm3 (150-375); Potassium 3.7 mmol/L (3.4-5.0); Red Blood Count 4.98 M/mm3 (4.2-5.4); Red Cell Distribution Width 15.9 % (11.5-14.5); Sodium 139 mmol/L (137-145); White Blood Count 9.4 K/mm3 (4.5-10.0)
[2020-07-18 18:10] LABS: INR 0.9; Partial Thromboplastin Time 25.5 SECONDS (22.3-36.8); Prothrombin Time 12.8 Seconds (11.1-14.7)
--- NOTE | 2020-07-18 20:19 | ED.GIBLEED ---
HPI - GI Bleed General Chief complaint: GI Bleed Stated complaint: rectal bleeding Time Seen by Provider: 07/18/20 19:58 Source: patient Mode of arrival: ambulatory Limitations: no limitations History of Present Illness HPI Narrative: This is a 25 year old female that presents to the ER for BRBPR today. Reports she has noted bright red blood in the toilet today 4 times. She does report history of ulcerative colitis and hemorrhoids. Reports currently she does have a hemorrhoid that is inflamed. Reports lower abdominal discomfort, and nausea and vomiting. Denies fever or dysuria. Related Data Home Medications Medication Instructions Recorded Confirmed quetiapine 200 mg PO BID 08/12/19 03/04/20 quetiapine 400 mg PO HS 08/12/19 03/04/20 cariprazine [Vraylar] mg 07/12/20 Allergies Allergy/AdvReac Type Severity Reaction Status Date / Time acetaminophen Allergy Unknown Nausea Verified 07/12/20 19:57 hydrocodone Allergy Unknown Nausea Verified 07/12/20 19:57 metoclopramide Allergy Unknown Nausea and Verified 07/12/20 19:57 Vomiting nortriptyline Allergy Unknown Nausea and Verified 07/12/20 19:57 Vomiting Penicillins Allergy Unknown Nausea Verified 07/12/20 19:57 Sulfa (Sulfonamide Allergy Unknown Nausea and Verified 07/12/20 19:57 Antibiotics) Vomiting haloperidol [From Haldol] Allergy Swelling Verified 07/12/20 19:57 of Lip/Tongue/Throat levofloxacin [From Levaquin] Allergy Rash Verified 07/12/20 19:57 morphine AdvReac Nausea and Verified 07/12/20 19:57 Vomiting Review of Systems Review of Systems: Narrative: CONSTITUTIONAL: Denies fever GASTROINTESTINAL: Reports abdominal pain, nausea, vomiting. Denies diarrhea. GENITOURINARY: Denies dysuria All systems reviewed & are unremarkable except as noted in HPI and below PMFSH Past Medical History Medical History (Updated 07/18/20 @ 21:59 by Mary Jane Roblero PA-C) Abdominal pain Anemia Anxiety Asthma Bipolar disorder Bloody diarrhea Arielle esophagitis Depression Dizziness Headache History of adverse reaction to anesthesia Hypertension IBS (irritable bowel syndrome) Immune deficiency disorder Immunodeficiency disorder, selective immunoglobulin Latex allergy Marijuana abuse Nausea and vomiting in adult Seasonal allergies Stomach pain Ulcerative colitis Weight gain Surgical History Surgical History Hx of cholecystectomy Family History Family History Father Acute myocardial infarction Mother Emphysema lung Chronic obstructive pulmonary disease Bipolar 1 disorder Sibling Selective immunoglobulin deficiency 2 sisters and a brother have it and all three of her children have it. Other Arthritis Diabetes mellitus Heart disease Hypertension Malignant neoplasm Neuropathy Social History Social History Smoking status: Former smoker Tobacco type: cigarettes Second hand tobacco smoke exposure: No Smoking end date: 03/09/13 Alcohol intake: never Substance use: current Substance use type: marijuana Additional living arrangements comments: Lives with Gender identity (if verbalized by the patient): Female Spiritual care concerns: No Exam Narrative: Exam Narrative: GENERAL: Well-appearing, well-nourished, and in no acute distress. HEAD: Normocephalic, atraumatic. EYES: EOMI. CHEST: Clear to auscultation. No respiratory distress. No wheezes rales or rhonchi HEART: Regular rate and rhythm. No murmur heard. Normal peripheral pulses. ABDOMEN: Soft, nontender, nondistended, normal active bowel sounds. No CVA tenderness EXTREMITIES: Normal range of motion. No edema. SKIN: Warm, dry, no rash. NEURO: No focal deficits. Alert and oriented x3. PSYCH: Normal mood and affect RECTAL: Several external hemorrhoid
[2020-07-18 21:05] VITALS: BP 132/76; PULSE 80; RESP 16; O2SAT 100
[2020-07-18] MEDS: SODIUM CHLORIDE 0.9% IV 1,000 ML 999 ML IV CONT (21:15)
[2020-07-18] MEDS: ONDANSETRON INJ 4 MG/2 ML VIAL IV PUSH (21:16)
[2020-07-18] MEDS: HYDROmorphone HCL INJ (*CRX) 1 MG/ML SYR 0.5 MG IV PUSH (21:16)
[2020-07-18 22:20] VITALS: BP 121/78; PULSE 78; RESP 16; O2SAT 100
== END 2020-07-18 22:20 | disposition home or self-care (01) ==
PROVIDERS: Emergency Provider Emergency Medicine; PCP Nurse Practitioner Family
DX: K64.9 Unspecified hemorrhoids (principal); R10.84 Generalized abdominal pain; D64.9 Anemia, unspecified; F41.9 Anxiety disorder, unspecified; J45.909 Unspecified asthma, uncomplicated; F31.9 Bipolar disorder, unspecified; I10 Essential (primary) hypertension
CPT/HCPCS: 36415; 74019; 80053; 85025; 85610; 85730; 86850; 86900; 86901; 96361; 96374; 96375; 99284; J1170; J2405; J7030

== ENCOUNTER 2020-11-07 08:10 | Emergency (ER) | payer BC, OTHER, SELFPAY ==
[2020-11-07 08:16] VITALS: BP 136/92; PULSE 110; RESP 20; TEMP 37
[2020-11-07 08:34] LABS: Basophils Absolute Auto 0.1 K/mm3 (0.0-0.1); Basophils Percent Auto 0.5 % (0.2-1.2); Hematocrit 43.7 % (37.0-47.0); Hemoglobin 14.6 g/dL (12.0-15.0); Immature Granulocyte Absolute 0.05 K/mm3 (0.00-0.031); Immature Granulocyte Percent A 0.4 % (0-0.5); Lymphocytes Absolute Auto 1.26 K/mm3 (0.9-3.2); Lymphocytes Percent Auto 9.5 % (18.3-44.2); Mean Corpuscular HGB Conc 33.4 g/dl (32-36); Mean Corpuscular Hemoglobin 28.3 pg (26-34); Mean Corpuscular Volume 84.7 fl (80-100); Mean Platelet Volume 9.6 fl (7.4-10.4); Monocytes Absolute Auto 0.6 K/mm3 (0.1-0.6); Monocytes Percent Auto 4.3 % (2.6-8.5); Neutrophils Absolute Auto 11.3 K/mm3 (1.3-6.7); Neutrophils Percent Auto 85.3 % (45.5-73.1); Platelet Count Result 386 k/mm3 (150-375); Red Blood Count 5.16 M/mm3 (4.2-5.4); Red Cell Distribution Width 15.8 % (11.5-14.5); White Blood Count 13.2 K/mm3 (4.5-10.0)
[2020-11-07 08:45] LABS: Alanine Aminotransferase 13 U/L (4-35); Alkaline Phosphatase 120 U/L (38-126); Anion Gap 16 mmol/L (8-16); Aspartate Amino Transferase 22 U/L (14-36); Bilirubin,Total 0.5 mg/dL (0.2-1.3); Blood Urea Nitrogen 10 mg/dL (7-17); Calcium 10.1 mg/dL (8.4-10.2); Carbon Dioxide 25 mmol/L (22-30); Chloride 100 mmol/L (98-107); Estimated CRCL calculation 86 ml/min; Estimated Glomerular Filt Rate > 60; Glucose 164 mg/dL (65-110); Lipase 29 U/L (23-300); Potassium 3.4 mmol/L (3.4-5.0); Sodium 141 mmol/L (137-145)
--- NOTE | 2020-11-07 08:53 | PC.NURSE ---
called into room by to complain about his wifes care. He states she needs a CT scan of her abd. Dr Mann was in room and explained she has had 4 CT scans this year and not good to continue with getting radiation. The is upset stating they cannot afford the medicine that Dr David prescribed for her GI issues. states she is in a lot of pain and needs pain medication, not just something for her nausea. As the is talking to me the pt is continuously crying outloud stating she is in pain and needs some fucking medicine
[2020-11-07] MEDS: SODIUM CHLORIDE 0.9% IV 1,000 ML 999 ML IV CONT (08:54)
[2020-11-07] MEDS: ONDANSETRON INJ 4 MG/2 ML VIAL IV PUSH (08:54)
--- NOTE | 2020-11-07 08:55 | PC.NURSE ---
PT CRYING AND WRITHING AROUND IN BED. REMAINS AT BEDSIDE. MEDS INITIATED PRESCRIBED. WILL CONTINUE TO MONITOR.
[2020-11-07 09:02] VITALS: BP 147/57; PULSE 111; RESP 17
--- NOTE | 2020-11-07 09:05 | ED.ABDPAIN ---
HPI - Abdominal Pain General Chief Complaint: Abdominal Pain Stated Complaint: vomiting/ulcerative colitis Time Seen by Provider: 11/07/20 08:42 Source: patient Mode of arrival: ambulatory Limitations: no limitations History of Present Illness HPI narrative: Patient is a 25-year-old female complaining of nausea vomiting, nonbilious nonbloody accompanied by diffuse abdominal pain 9 out of 10 that started 5 days ago. Patient has had multiple ER visits for the same complaints. I reviewed her previous CT scans of her abdomen pelvis, has had approximately 4 within the last 10 months, all did not show any acute intra-abdominal process. Patient states that she also gets Ativan and Dilaudid for her nausea and abdominal pain. Related Data Home Medications Medication Instructions Recorded Confirmed quetiapine 200 mg PO BID 08/12/19 03/04/20 quetiapine 400 mg PO HS 08/12/19 03/04/20 cariprazine [Vraylar] mg 07/12/20 quetiapine 11/07/20 quetiapine 11/07/20 Allergies Allergy/AdvReac Type Severity Reaction Status Date / Time hydrocodone Allergy Unknown Nausea Verified 11/07/20 08:34 metoclopramide Allergy Unknown Nausea and Verified 11/07/20 08:34 Vomiting nortriptyline Allergy Unknown Nausea and Verified 11/07/20 08:34 Vomiting Penicillins Allergy Unknown Nausea Verified 11/07/20 08:34 Sulfa (Sulfonamide Allergy Unknown Nausea and Verified 11/07/20 08:34 Antibiotics) Vomiting haloperidol [From Haldol] Allergy Swelling Verified 11/07/20 08:34 of Lip/Tongue/Throat levofloxacin [From Levaquin] Allergy Rash Verified 11/07/20 08:34 morphine AdvReac Nausea and Verified 11/07/20 08:34 Vomiting Review of Systems Review of Systems: All systems reviewed & are unremarkable except as noted in HPI and below Constitutional: Constitutional: Denies body ache(s), Denies chills, Denies excessive sweating, Denies fatigue, Denies fever(s), Denies headache(s), Denies lethargy, Denies malaise, Denies weakness and Denies weight loss Eyes: Eyes: Denies blurry vision, Denies change in vision and Denies loss of vision ENT: Denies dizziness, Denies ear discharge, Denies headache(s), Denies lip swelling, Denies epistaxis, Denies nasal congestion, Denies neck pain, Denies throat swelling and Denies tongue swelling Cardiovascular: Cardiovascular: Denies chest pain, Denies chest pain at rest, Denies chest pain with activity, Denies diaphoresis, Denies rapid heart rate, Denies edema, Denies irregular heart rhythm, Denies lightheadedness, Denies palpitations, Denies dyspnea and Denies dyspnea on exertion Respiratory: Respiratory: Denies chest congestion, Denies cough, Denies hemoptysis, Denies dyspnea and Denies dyspnea on exertion Gastrointestinal: Gastrointestinal: Denies melena, Denies hematochezia, Denies diarrhea and Denies hematemesis Musculoskeletal: Musculoskeletal: Denies abnormal gait, Denies deformity, Denies joint swelling, Denies limited range of motion, Denies neck pain and Denies numbness Neurologic: Denies Abnormal speech present, Denies abnormal gait, Denies confusion, Denies dizziness, Denies headache(s), Denies focal weakness, Denies loss of vision, Denies numbness, Denies Other visual disturbances, Denies Sensory deficit (Neuro) and Denies weakness Psychiatric: Psychiatric: Denies confusion, Denies depression, Denies auditory hallucinations, Denies homicidal ideation and Denies suicidal ideation Endocrine: Endocrine: Denies cold intolerance, Denies excessive sweating, Denies fatigue, Denies heat intolerance and Denies palpitations Hematologic/Lymphatic: Hematologic/Lymphatic: Denies easy bleeding and Denies easy bruising Allergic/Immunologic: Allergic/Immunologic: Denies lip swelling, Denies throat swelling and Denies tongue swelling [facility] Past Medical History Medical History (Updated 11/07/20 @ 11:07 by Indio Mann MD) Abdominal pain Anemia Anxiety Asthma Bipolar disorder Bloody diarrhea Arielle
[2020-11-07] MEDS: PROMETHAZINE HCL 25 MG/ML AMPUL 12.5 MG IV PUSH (09:14)
--- NOTE | 2020-11-07 09:15 | PC.NURSE ---
ADDITIONAL MEDS GIVEN AFTER PT VOMITED LARGE AMOUNT OF EMESIS. STILL WRITHING AROUND IN BED AND CRYING. REMAINS AT BEDSIDE.
[2020-11-07] MEDS: diphenhydrAMINE HCl INJ 50 MG/ML VIAL 25 MG IV PUSH (09:17)
[2020-11-07] MEDS: PANTOPRAZOLE SODIUM IV 40 MG VIAL IV PUSH (09:34)
--- NOTE | 2020-11-07 09:35 | PC.NURSE ---
PT STATES HER STOMACH IS BURNING. ADDITIONAL GI MEDICATION GIVEN PER ORDER
[2020-11-07 10:19] LABS: Add Urine Microscopic? YES; Amorphous Sediment Urine Few; Appearance Urine Cloudy (Clear); Bacteria Urine Trace /hpf; Bilirubin Urine 2+ (Negative); Blood Urine Negative (Negative); Color Urine Amber (Yellow); Glucose Urine UA Negative (Negative); Ketones Urine Trace mg/dL (Negative); Leukocyte Esterase Ur 1+ LEU/UL (Negative); Mucus Urine Heavy /lpf; Nitrate Urine Negative (Negative); Protein Urine 3+ mg/dL (Negative); Squamous Epithelial Cell Urine Many /hpf (Few); WBC Urine 21-30 /hpf
--- NOTE | 2020-11-07 10:30 | PC.NURSE ---
PT MOVED TO ROOM 6 FOR PRIVACY. CURRENTLY IN BATHROOM TO ATTEMPT TO HAVE A BOWEL MOVEMENT PER HER HUSBANDS REPORT.
[2020-11-07 10:38] LABS: Specific Grav Ur 1.033 (1.001-1.035)
--- NOTE | 2020-11-07 10:45 | PC.NURSE ---
PT WITH LARGE AMOUNT OF LIQUID IN GREEN EMESIS BAG AFTER WALKING OUT OF BATHROOM. ASKED PT IF SHE WAS TRYING TO DRINK WATER IN THE BATHROOM AND SHE SAID I ACCUSED HER OF DRINKING WATER. I INFORMED THE PT THAT SOME PATIENTS DRINK BECAUSE THEY ARE SO THIRSTY AND IT SEEMED LIKE A LARGE AMOUNT OF EMESIS SINCE SHE HAD VOMITED EARLIER AND HADN'T HAD ANYTHING TO DRINK SINCE HER ARRIVAL TO THE ED. PT STATED AGAIN THAT SHE DIDN'T DRINK OUT OF FAUCET IN BATHROOM
[2020-11-07 11:02] VITALS: PULSE 50; RESP 20; TEMP 36.6; O2SAT 100
[2020-11-07 11:20] VITALS: BP 139/70; PULSE 70; RESP 18; O2SAT 97
--- NOTE | 2020-11-07 11:20 | PC.NURSE ---
PT WAS AGAIN IN BATHROOM TO ATTEMPT TO HAVE A BM. SHE CAME OUT AND I NOTICED THAT THE CARDIAC LEADS WERE HANGING FROM HER GOWN. I REACHED TO REMOVE THEM FROM HER AND SHE ACCUSED ME OF TOUCHING HER BREASTS. I STATED THAT I WAS NOT TOUCHING HER BREASTS BUT REMOVING THE LEADS. SHE THEN STATED THAT I NEED TO ASK PERMISSION BEFORE I TOUCH SOMEONE'S BREASTS AND I APOLOGIZED FOR THE MISUNDERSTANDING. MEGGAN KING RN MADE AWARE OF SITUATION.
[2020-11-07 11:21] VITALS: BP 130/79
--- NOTE | 2020-11-07 11:45 | PC.NURSE ---
Per chargemaster specialist patient and significant other requesting to speak to a puttying and calking supervisor due to being unhappy with their care. I entered the room at 1145 and patient was noted to be in the restroom. I waited until she came out and asked them to tell me what they wished to speak to me about. They reported that they did not feel like they received any treatment today and we did not find anything wrong with her and there has to be something wrong with her They were demanding to be transferred to another facility because she was not stable , also stating that they had not received treatment. Attempted to explain the treatment she received is treatment and they never stopped yelling or commenting for any explanation to be given. They reported that the doctor did nothing and did not even examine her. Dr. Mann denies this claim and reports he did a full exam on her. spoke with them regarding her findings and stated he would not return to discuss with them again. Patient and significant other yelling at staff. Patient noted to have no emesis during the time I was in the room. Patient also noted to not be doubled over and crying at this time. Patient refused to allow this nurse or Majo the charge nurse to remove her IV. She allowed Cat RN to remove the IV. Patient was given discharge instructions but she refused to sign the form. When she reported an allergy to the medication that was prescribed, Dr. Mann sent a new RN to [facility] in [place] for Macrobid as the patient reported that was the only thing she could take for UTI's. Significant other upset that we mentioned that her vomiting seemed to have stopped when they asked how we expect her to keep the medication down when she can't stop throwing up and he in an angry haste pulled emesis bags from the trash and threw them on the floor spilling emesis onto the floor. Security notified to stand by while discharging patient and they were informed that if they refuse to leave they would be escorted off the property by [place] [employer].
--- NOTE | 2020-11-07 11:45 | PC.NURSE ---
Upon entering room 6 with ED mgr, [place] - pt was in bathroom and sitting in chair. Waited for pt to come into the room. As entering the room she is holding her IV bag of NS she is complaining about not being treated right. ED mgr is unable to answer questions fully due to the constant interruptions from the and pt. Upon the pt becoming upset and angry she begins to verbally call us names, states dykes & cunt . Pt continues to speak very loudly and using vulgar language as the ED mgr & I are attempting to answer any questions.
--- NOTE | 2020-11-07 12:25 | PC.NURSE ---
Security was called to ER nurses station. Pt was changed into her clothes waiting for her RX change before she leaves. Door was propped open because of the emesis bags that was pulled out of trash can and dumped onto the floor. kept shutting the door. Security opened door back up and told that door needs to be opened. shut the door and kept it closed. Security could not open the door. [place] [employer] was called to assist with escorting pt and to their car. Pt & left with no mask on, continuously yelling at the nurses station. Pt left ER room 6 with a steady gait, upright position, & no vomiting or crying at that time - Just yelling at the staff.
--- NOTE | 2020-11-07 12:29 | PC.NURSE ---
Pt ambulated out of ed with steady gait in upright position,in no distress. Pt not crying at this time. Significant other cursing and yelling while exiting the ED.
== END 2020-11-07 12:30 | disposition home or self-care (01) ==
PROVIDERS: Emergency Provider Emergency Medicine; PCP Nurse Practitioner Family
DX: N39.0 Urinary tract infection, site not specified (principal); R10.9 Unspecified abdominal pain; R11.15 Cyclical vomiting syndrome unrelated to migraine; Z87.891 Personal history of nicotine dependence; F41.9 Anxiety disorder, unspecified; J45.909 Unspecified asthma, uncomplicated; F31.9 Bipolar disorder, unspecified; I10 Essential (primary) hypertension
CPT/HCPCS: 36415; 80053; 81001; 83690; 85025; 96361; 96374; 96375; 99284; C9113; J1200; J2405; J2550; J7030

== ENCOUNTER 2021-06-08 11:06 | Emergency (ER) | payer OTHER, SELFPAY ==
[2021-06-08] VITALS (8 sets, daily range): BP systolic 96–144; BP diastolic 70–113; PULSE 125; RESP 20; TEMP 36.9; O2SAT 96–100
--- NOTE | ~2021-06-08 | CT_ITS ---
EXAMINATION: CT abdomen pelvis w con DATE: 06/08/2021 13:27 INDICATION: Left lower quadrant abdominal tenderness. Left costovertebral angle tenderness. TECHNIQUE: Computed tomography (CT) of the abdomen and pelvis was performed with 100 mL Omnipaque 350 intravenous contrast. Automated exposure control and iterative reconstruction technique were employe d. The dose-length product was 222.39 mGy-cm. COMPARISON: CT abdomen and pelvis 07/12/2020, 02/14/2020 FINDINGS: The visualized portions of the lung bases demonstrate a 3 mm nodule in left lower lobe, lik valente benign. No pleural effusion. The heart size is normal. No pericardial effusion. The liver is norm al. There are changes of cholecystectomy. The spleen, pancreas, adrenal glands, and right kidney are normal. There is a 6 mm cyst in left kidney. There are small areas of hypoenhancement within the uppe r pole and midzone of left kidney. There are no dilated loops of bowel. The appendix is normal. There are no pathologically enlarged lymph nodes. There is no free intraperitoneal fluid. The bones are un remarkable. IMPRESSION: 1. Small areas of hypoenhancement in left kidney, consistent with acute or subacute pyelonephritis. C orrelate with urinalysis. Reviewed, dictated and finalized at location E. IMPRESSION: 1. Small areas of hypoenhancement in left kidney, consistent with acute or suba cute pyelonephritis. Correlate with urinalysis.
--- NOTE | 2021-06-08 11:58 | PC.NURSE ---
EDP at bedside to assess pt.
[2021-06-08 12:29] LABS: Basophils Percent Auto 0.2 % (0.2-1.2); Hematocrit 42.2 % (37.0-47.0); Hemoglobin 14.6 g/dL (12.0-15.0); Immature Granulocyte Absolute 0.05 K/mm3 (0.00-0.031); Immature Granulocyte Percent A 0.3 % (0-0.5); Lymphocytes Absolute Auto 2.09 K/mm3 (0.9-3.2); Mean Corpuscular HGB Conc 34.6 g/dl (32-36); Mean Corpuscular Hemoglobin 29.6 pg (26-34); Mean Corpuscular Volume 85.4 fl (80-100); Mean Platelet Volume 10.3 fl (7.4-10.4); Monocytes Percent Auto 6.4 % (2.6-8.5); Neutrophils Absolute Auto 11.8 K/mm3 (1.3-6.7); Neutrophils Percent Auto 79.1 % (45.5-73.1); Platelet Count Result 381 k/mm3 (150-375); Red Blood Count 4.94 M/mm3 (4.2-5.4); Red Cell Distribution Width 15.5 % (11.5-14.5); White Blood Count 14.9 K/mm3 (4.5-10.0)
[2021-06-08] MEDS: SODIUM CHLORIDE 0.9% IV 1,000 ML 999 ML IV CONT (12:29)
[2021-06-08] MEDS: PROCHLORPERAZINE EDISYLATE 10 MG/2 ML VIAL IV PUSH (12:29)
[2021-06-08 12:40] LABS: Anion Gap 10 mmol/L (8-16); Blood Urea Nitrogen 13 mg/dL (7-17); Calcium 9.9 mg/dL (8.4-10.2); Carbon Dioxide 24 mmol/L (22-30); Chloride 105 mmol/L (98-107); Estimated CRCL calculation 111 ml/min; Estimated Glomerular Filt Rate > 60; Glucose 111 mg/dL (65-110); Lipase 31 U/L (23-300); Potassium 3.4 mmol/L (3.4-5.0); Sodium 139 mmol/L (137-145)
--- NOTE | 2021-06-08 12:42 | ED.NAVMDI ---
HPI - Nausea/Vomiting/Diarrhea General Chief complaint: Nausea/Vomiting/Diarrhea <Mary Jane Flynn PA-C - Last Filed: 06/08/21 18:48> Stated complaint: out of seroquel and ativan/vomiting blood <Mary Jane Flynn PA-C - Last Filed: 06/08/21 18:48> Time Seen by Provider: 06/08/21 11:56 <Mary Jane Flynn PA-C - Last Filed: 06/08/21 18:48> History of Present Illness HPI Narrative: Patient is a 26-year-old female with a history of hyperemesis, ulcerative colitis, who presents to the emergency department with 3 days of abdominal pain, nausea and vomiting. She states the nausea and vomiting is chronic for her, but this is more than her usual. She believes running out of her Seroquel prescription precipitated this event of nausea and vomiting. She states over the past 12 hours, she has had about 8 episodes of vomiting, and some of her emesis has contained streaks of blood. She has been unable to keep anything down. She has a history of blood in her vomit which has been worked up with an EGD in the past. She is additionally reporting some intermittent, left lower quadrant abdominal pain, that she describes as a cramp, in addition to some back pain and cloudy urine recently. Reports a history of ulcerative colitis, but due to insurance issues she has not been able to follow-up with her GI doctor, and has been not taking any medications for this. She also unfortunately lost access to her primary care doctor due to insurance issues, but has a new patient appointment with [facility] on June 20. She denies any dysuria, hematuria, fevers, diarrhea, constipation, vaginal discharge, vaginal pain. Her menstrual cycle is current. Admits to marijuana use, but no alcohol, or IV drug use. <Mary Jane Flynn PA-C - Last Filed: 06/08/21 18:48> Related Data Home medications: Home Medications Medication Instructions Recorded Confirmed quetiapine 200 mg PO BID 08/12/19 03/04/20 quetiapine 400 mg PO HS 08/12/19 03/04/20 cariprazine [Vraylar] mg 07/12/20 quetiapine 11/07/20 quetiapine 11/07/20 <Mary Jane Flynn PA-C - Last Filed: 06/08/21 18:48> Allergies/Adverse reactions: Allergies Allergy/AdvReac Type Severity Reaction Status Date / Time hydrocodone Allergy Unknown Nausea Verified 06/08/21 12:33 metoclopramide Allergy Unknown Nausea and Verified 06/08/21 12:33 Vomiting nortriptyline Allergy Unknown Nausea and Verified 06/08/21 12:33 Vomiting Penicillins Allergy Unknown Nausea Verified 06/08/21 12:33 Sulfa (Sulfonamide Allergy Unknown Nausea and Verified 06/08/21 12:33 Antibiotics) Vomiting haloperidol [From Haldol] Allergy Swelling Verified 06/08/21 12:33 of Lip/Tongue/Throat levofloxacin [From Levaquin] Allergy Rash Verified 06/08/21 12:33 morphine AdvReac Nausea and Verified 06/08/21 12:33 Vomiting <Mary Jane Flynn PA-C - Last Filed: 06/08/21 18:48> Review of Systems Review of Systems: Gen.: Denies fevers or chills Eyes: Denies eye pain or visual change ENT: Denies congestion Respiratory: Denies shortness of breath or cough CV: Denies chest pain or palpitations GI: Reports abdominal pain, nausea, and vomiting. No diarrhea or constipation denies burning, urgency, frequency or hematuria Musculoskeletal: Denies back pain or muscle pain Neuro: Denies numbness, tingling, weakness or focal weakness Skin: Denies rash Except as documented, all other systems reviewed and negative <Mary Jane Flynn PA-C - Last Filed: 06/08/21 18:48> [facility] Past Medical History Medical History: Medical History (Updated 06/08/21 @ 14:33 by Mary Jane Flynn PA-C) Abdominal pain Anemia Anxiety Asthma Bipolar disorder Bloody diarrhea Arielle esophagitis Depression Dizziness Headache History of adverse reaction to anesthesia Hypertension IBS (irritable bowel syndrome) Immune deficiency disorder Immunodeficiency disorder, selec
[2021-06-08 12:49] LABS: Add Urine Microscopic? YES; Amorphous Sediment Urine Few; Appearance Urine Turbid (Clear); Bacteria Urine 4+ /hpf; Bilirubin Urine Negative (Negative); Blood Urine Negative (Negative); Color Urine Yellow (Yellow); Glucose Urine UA Negative (Negative); Ketones Urine 1+ mg/dL (Negative); Leukocyte Esterase Ur Negative LEU/UL (Negative); Mucus Urine Heavy /lpf; Nitrate Urine Negative (Negative); Protein Urine 2+ mg/dL (Negative); Squamous Epithelial Cell Urine Moderate /hpf (Few)
[2021-06-08 13:16] LABS: Specific Grav Ur 1.031 (1.001-1.035)
--- NOTE | 2021-06-08 13:26 | PC.NURSE ---
Patient off unit to radiology for abdominal CT.
[2021-06-08] MEDS: KETOROLAC 30 MG/ML VIAL (*BKC) IV PUSH (14:35)
== END 2021-06-08 15:20 | disposition home or self-care (01) ==
PROVIDERS: Physician Assistant; Emergency Provider Emergency Medicine; PCP Nurse Practitioner Family
DX: N12 Tubulo-interstitial nephritis, not specified as acute or chronic (principal); J45.909 Unspecified asthma, uncomplicated; I10 Essential (primary) hypertension; Z87.891 Personal history of nicotine dependence; K51.90 Ulcerative colitis, unspecified, without complications; D80.3 Selective deficiency of immunoglobulin G [IgG] subclasses; F41.9 Anxiety disorder, unspecified; F31.9 Bipolar disorder, unspecified
CPT/HCPCS: 36415; 74177; 80048; 81001; 81025; 83690; 85025; 96361; 96374; 96375; 99284; J0780; J1885; J7030; Q9967

== ENCOUNTER 2021-06-25 10:36 | Emergency (ER) | payer OTHER, SELFPAY ==
--- NOTE | ~2021-06-25 | CT_ITS ---
EXAMINATION: CT abdomen pelvis w con DATE: 06/25/2021 14:24 INDICATION: Pyelonephritis presenting with left flank pain. TECHNIQUE: Computed tomography (CT) of the abdomen and pelvis was performed with 100 mL Omnipaque-350 intravenous contrast. Automated exposure control and iterative reconstruction technique were employe d. The dose-length product was 286.22 mGy-cm. COMPARISON: 12/02/2018 FINDINGS: Couple chronic 2-3 mm nodules in the bilateral lower lobes. No pneumonia, pulmonary edema or pleural effusion. No pericardial effusion. Visualized inferior heart is normal. Cholecystectomy clips at the gallbladder fossa. Liver, spleen, pancreas, bilateral adrenal glands and right kidney are normal. Unc hanged 6 mm cyst at the upper pole of the left kidney. Bowels including the appendix are normal. Blad linda and anteverted uterus are normal. 1.5 cm peripherally enhancing corpus luteum cyst at the right o vary. Small amount of free fluid in the cul-de-sac. No abscess or free intraperitoneal gas. No pathol ogically enlarged abdominal or pelvic lymphadenopathy. Bones are unremarkable. IMPRESSION: 1. 1.5 cm right ovarian corpus luteum cyst and small amount of likely physiologic free fluid in the c ul-de-sac. No other acute intra-abdominal/pelvic process. Reviewed, dictated and finalized at location A. IMPRESSION: 1. 1.5 cm right ovarian corpus luteum cyst and small amount of likely physiolog ic free fluid in the cul-de-sac. No other acute intra-abdominal/pelvic process.
[2021-06-25 10:38] VITALS: BP 137/90; PULSE 101; RESP 18; TEMP 36.7; O2SAT 99
[2021-06-25 10:46] VITALS: BP 120/83; PULSE 90; RESP 16
--- NOTE | 2021-06-25 11:05 | ED.FEMALEGU ---
HPI - Female Genitourinary General Chief complaint: Urogenital-Female Stated complaint: flank pain - recent dx of kidney infection Time Seen by Provider: 06/25/21 10:46 Source: patient History of Present Illness HPI Narrative: Patient presents with abdominal pain and back pain. Pain is where she was seen here approximately 3 weeks ago diagnosed with a kidney infection she was discharged home on antibiotics. She reports she has chronic nausea and was unable to take all of her antibiotics. Ports she was starting to feel better over the past few days her symptoms appear to be worsening. She has worsening pain on her left side which is where her prior kidney infection was she is now developing pain on the right side and is having increased pain in her abdomen. Pain is achy, constant, radiates to her back, no clear aggravating or alleviating factors. She also reports dark urine as well as foul-smelling urine. Related Data Home Medications Medication Instructions Recorded Confirmed cariprazine [Vraylar] mg 07/12/20 quetiapine 11/07/20 Allergies Allergy/AdvReac Type Severity Reaction Status Date / Time haloperidol [From Haldol] Allergy Swelling Verified 06/08/21 12:33 of Lip/Tongue/Throat levofloxacin [From Levaquin] Allergy Rash Verified 06/08/21 12:33 hydrocodone AdvReac Unknown Nausea Verified 06/25/21 10:53 metoclopramide AdvReac Unknown Nausea and Verified 06/25/21 10:53 Vomiting nortriptyline AdvReac Unknown Nausea and Verified 06/25/21 10:53 Vomiting Penicillins AdvReac Unknown Nausea Verified 06/25/21 10:53 Sulfa (Sulfonamide AdvReac Unknown Nausea and Verified 06/25/21 10:53 Antibiotics) Vomiting morphine AdvReac Nausea and Verified 06/08/21 12:33 Vomiting Review of Systems Review of Systems: CONSTITUTIONAL: Denies fever, chills, or sweats. EYES: Denies visual changes, redness, or discharge. ENT: Denies rhinorrhea, congestion, sore throat, or otalgia. CARDIOVASCULAR: Denies chest pain, palpitations, or edema. RESPIRATORY: Denies cough or dyspnea. GASTROINTESTINAL: Lower abdominal pain and chronic nausea GENITOURINARY: Discolored and foul-smelling urine SKIN: Denies rash or itching. MUSCULOSKELETAL: Denies joint pain, or myalgia. NEUROLOGIC: Denies headache, numbness, dizziness, or weakness. PSYCHIATRIC: Denies anxiety or depression. All systems reviewed & are unremarkable except as noted in HPI and below PMFSH Past Medical History Medical History (Updated 06/25/21 @ 14:51 by Linwood Fonseca MD) Abdominal pain Anemia Anxiety Asthma Bipolar disorder Bloody diarrhea Arielle esophagitis Depression Dizziness Headache History of adverse reaction to anesthesia Hypertension IBS (irritable bowel syndrome) Immune deficiency disorder Immunodeficiency disorder, selective immunoglobulin Latex allergy Marijuana abuse Nausea and vomiting in adult Seasonal allergies Stomach pain Ulcerative colitis Weight gain Surgical History Surgical History Hx of cholecystectomy Family History Family History Father Acute myocardial infarction Mother Emphysema lung Chronic obstructive pulmonary disease Bipolar 1 disorder Sibling Selective immunoglobulin deficiency 2 sisters and a brother have it and all three of her children have it. Other Arthritis Diabetes mellitus Heart disease Hypertension Malignant neoplasm Neuropathy Social History Social History Smoking status: Former smoker Tobacco type: cigarettes Second hand tobacco smoke exposure: No Smoking end date: 03/09/13 Alcohol intake: never Substance use: current Substance use type: marijuana Additional living arrangements comments: Lives with Gender identity (if verbalized by the patient): Female Sexual Orientation (if V
[2021-06-25 11:29] LABS: Basophils Absolute Auto 0.1 K/mm3 (0.0-0.1); Basophils Percent Auto 0.7 % (0.2-1.2); Eosinophils Absolute Auto 0.1 K/mm3 (0-0.3); Eosinophils Percent Auto 1.1 % (0-4.4); Hematocrit 39.3 % (37.0-47.0); Hemoglobin 12.7 g/dL (12.0-15.0); Immature Granulocyte Absolute 0.01 K/mm3 (0.00-0.031); Immature Granulocyte Percent A 0.1 % (0-0.5); Lymphocytes Absolute Auto 2.43 K/mm3 (0.9-3.2); Lymphocytes Percent Auto 32.1 % (18.3-44.2); Mean Corpuscular HGB Conc 32.3 g/dl (32-36); Mean Corpuscular Volume 89.7 fl (80-100); Mean Platelet Volume 10.1 fl (7.4-10.4); Monocytes Absolute Auto 0.4 K/mm3 (0.1-0.6); Monocytes Percent Auto 5.5 % (2.6-8.5); Neutrophils Absolute Auto 4.6 K/mm3 (1.3-6.7); Neutrophils Percent Auto 60.5 % (45.5-73.1); Platelet Count Result 304 k/mm3 (150-375); Red Blood Count 4.38 M/mm3 (4.2-5.4); Red Cell Distribution Width 15.6 % (11.5-14.5); White Blood Count 7.6 K/mm3 (4.5-10.0)
[2021-06-25 11:38] LABS: Alanine Aminotransferase 16 U/L (4-35); Albumin Level 4.3 g/dL (3.5-5.1); Alkaline Phosphatase 72 U/L (38-126); Anion Gap 6 mmol/L (8-16); Aspartate Amino Transferase 21 U/L (14-36); Bilirubin,Total 0.2 mg/dL (0.2-1.3); Blood Urea Nitrogen 12 mg/dL (7-17); Calcium 8.9 mg/dL (8.4-10.2); Carbon Dioxide 25 mmol/L (22-30); Chloride 107 mmol/L (98-107); Estimated CRCL calculation 111 ml/min; Estimated Glomerular Filt Rate > 60; Glucose 99 mg/dL (65-110); Lipase 59 U/L (23-300); Potassium 3.8 mmol/L (3.4-5.0); Sodium 138 mmol/L (137-145)
[2021-06-25 11:39] LABS: Lactic Acid Reflex 0.7 mmol/L (0.7-2.1)
[2021-06-25] MEDS: SODIUM CHLORIDE 0.9% IV 1,000 ML 999 ML IV CONT (11:45)
[2021-06-25] MEDS: ONDANSETRON INJ 4 MG/2 ML VIAL IV PUSH (11:47)
[2021-06-25 14:27] LABS: Appearance Urine Cloudy (Clear); Bilirubin Urine Negative (Negative); Blood Urine Negative (Negative); Color Urine Yellow (Yellow); Glucose Urine UA Negative (Negative); Ketones Urine Negative (Negative); Leukocyte Esterase Ur 1+ LEU/UL (Negative); Nitrate Urine Negative (Negative); Protein Urine Negative (Negative); Urobilinogen Urine 0.2 mg/dL (<2.0)
[2021-06-25 14:34] LABS: Add Urine Microscopic? YES; Bacteria Urine 1+ /hpf; Mucus Urine Rare /lpf; Squamous Epithelial Cell Urine Many /hpf (Few); WBC Urine 16-20 /hpf
[2021-06-25 15:15] VITALS: BP 129/91; PULSE 92; RESP 18; O2SAT 100
== END 2021-06-25 15:17 | disposition home or self-care (01) ==
PROVIDERS: Emergency Provider Emergency Medicine; PCP Nurse Practitioner Family
DX: N39.0 Urinary tract infection, site not specified (principal); Z86.2 Personal history of diseases of the blood and blood-forming organs and certain disorders involving the immune mechanism; I10 Essential (primary) hypertension; J45.909 Unspecified asthma, uncomplicated; F41.9 Anxiety disorder, unspecified; F31.9 Bipolar disorder, unspecified; K58.9 Irritable bowel syndrome, unspecified; D84.9 Immunodeficiency, unspecified; Z87.891 Personal history of nicotine dependence; N83.11 Corpus luteum cyst of right ovary
CPT/HCPCS: 36415; 74177; 80053; 81001; 81025; 83605; 83690; 85025; 87040; 87077; 87086; 87186; 96361; 96365; 96375; 99284; J0131; J0696; J2405; J7030; Q9967

== ENCOUNTER 2021-07-19 20:15 | Emergency (ER) | payer BC, OTHER, SELFPAY ==
--- NOTE | ~2021-07-19 | CT_ITS ---
EXAMINATION: CT abdomen pelvis wo con DATE: 07/20/2021 00:18 INDICATION: Right flank pain TECHNIQUE: Computed tomography (CT) of the abdomen and pelvis was performed without intravenous contr ast. Automated exposure control and iterative reconstruction technique were employed. Exam dose: 270 .50 mGy-cm total exam DLP. COMPARISON: 06/25/2021 CT abdomen pelvis FINDINGS: The lung bases are clear of infiltrate or consolidation. Normal heart size. No pericardial or pleural effusion. Status post cholecystectomy. The liver, spleen, pancreas, bile ducts, pancreatic duct, and adrenal gl ands and kidneys appear unremarkable on this limited noncontrast examination. No urinary tract calculus or hydroureteronephrosis. The urinary bladder, uterus and adnexal areas are unremarkable. Normal caliber of the abdominal aorta. No intraperitoneal or retroperitoneal or pelvic mass lesion or adenopathy or ascites. No bowel obstruction or intraperitoneal free air. IMPRESSION: Status post cholecystectomy No urinary tract calculus or hydroureteronephrosis Reviewed, dictated and finalized at Location A. Reviewed, dictated and finalized at location A.
[2021-07-19 20:33] LABS: Appearance Urine Clear (Clear); Bilirubin Urine 2+ (Negative); Blood Urine Negative (Negative); Color Urine Yellow (Yellow); Glucose Urine UA Negative (Negative); Ketones Urine Negative (Negative); Leukocyte Esterase Ur 2+ LEU/UL (Negative); Nitrate Urine Negative (Negative); Protein Urine 2+ mg/dL (Negative); Specific Grav Ur 1.025 (1.001-1.035)
[2021-07-19 20:38] LABS: Mucus Urine Heavy /lpf; Squamous Epithelial Cell Urine Many /hpf (Few); WBC Urine >75 /hpf
[2021-07-19 20:40] LABS: Add Urine Microscopic? YES
[2021-07-19 20:41] VITALS: BP 151/102; PULSE 109; RESP 18; TEMP 36.7; O2SAT 98
[2021-07-20] VITALS (17 sets, daily range): BP systolic 115–133; BP diastolic 60–78; PULSE 67–98; RESP 11–19
[2021-07-20 00:56] LABS: Basophils Absolute Auto 0.1 K/mm3 (0.0-0.1); Basophils Percent Auto 0.9 % (0.2-1.2); Eosinophils Absolute Auto 0.1 K/mm3 (0-0.3); Eosinophils Percent Auto 0.7 % (0-4.4); Hematocrit 42.4 % (37.0-47.0); Immature Granulocyte Absolute 0.02 K/mm3 (0.00-0.031); Immature Granulocyte Percent A 0.2 % (0-0.5); Lymphocytes Absolute Auto 2.84 K/mm3 (0.9-3.2); Lymphocytes Percent Auto 31.5 % (18.3-44.2); Mean Corpuscular Hemoglobin 28.7 pg (26-34); Mean Corpuscular Volume 87.1 fl (80-100); Mean Platelet Volume 10.3 fl (7.4-10.4); Monocytes Absolute Auto 0.7 K/mm3 (0.1-0.6); Monocytes Percent Auto 8.1 % (2.6-8.5); Neutrophils Absolute Auto 5.3 K/mm3 (1.3-6.7); Neutrophils Percent Auto 58.6 % (45.5-73.1); Platelet Count Result 272 k/mm3 (150-375); Red Blood Count 4.87 M/mm3 (4.2-5.4); Red Cell Distribution Width 15.6 % (11.5-14.5)
[2021-07-20] MEDS: ONDANSETRON INJ 4 MG/2 ML VIAL IV PUSH (01:00)
[2021-07-20] MEDS: fentaNYL CITRATE INJ (*CRX) 100 MCG/2 ML VIAL 25 MCG IV PUSH (01:00)
[2021-07-20] MEDS: SODIUM CHLORIDE 0.9% IV 1,000 ML 999 ML IV CONT (01:00)
[2021-07-20 01:37] LABS: Alanine Aminotransferase 28 U/L (6-35); Albumin Level 4.4 g/dL (3.5-5.1); Alkaline Phosphatase 86 U/L (38-126); Anion Gap 8 mmol/L (8-16); Aspartate Amino Transferase 33 U/L (14-36); Bilirubin,Total 0.5 mg/dL (0.2-1.3); Blood Urea Nitrogen 12 mg/dL (7-17); Calcium 9.1 mg/dL (8.4-10.2); Carbon Dioxide 33 mmol/L (22-30); Chloride 97 mmol/L (98-107); Estimated CRCL calculation 111 ml/min; Estimated Glomerular Filt Rate > 60; Glucose 95 mg/dL (65-110); Potassium 2.8 mmol/L (3.4-5.0); Sodium 138 mmol/L (137-145)
[2021-07-20] MEDS: POTASSIUM CHLORIDE 20 MEQ PACKET (FOR LIQUID) 40 MEQ PO (02:09)
[2021-07-20] MEDS: cefTRIAXone 2 GM in SODIUM CHLORIDE 0.9% IV 100 ML 200 ML IVPB (02:10)
[2021-07-20] MEDS: DOXYCYCLINE HYCLATE 100 MG TABLET PO (02:10)
[2021-07-20] MEDS: CIPROFLOXACIN 500 MG TAB PO (02:10)
[2021-07-20] MEDS: metroNIDAZOLE 250 MG TABLET 500 MG PO (02:10)
--- NOTE | 2021-07-20 03:17 | ED.FEMALEGU ---
HPI - Female Genitourinary General Chief complaint: Urogenital-Female Stated complaint: kidney infection Time Seen by Provider: 07/20/21 00:03 Source: patient Mode of arrival: ambulatory History of Present Illness HPI Narrative: 26-year-old female presents today with complaints of right flank pain that has been going on for over 3 weeks. Patient has had 2 previous trips to this ER for the same complaint. Previous work-ups have shown UTI. Patient treated with antibiotics. Patient states she took the full course of antibiotics as instructed but never got any better. Patient states she does not have a primary physician for follow-up so she never followed up with anybody. Patient has a complicated home life at the current time. Patient states she is homeless and is currently living in a hotel with her and children. Patient states she has a history of ulcerative colitis. Patient denies fevers, body aches, chills, vaginal discharge, or . Related Data Home Medications Medication Instructions Recorded Confirmed cariprazine [Vraylar] mg 07/12/20 quetiapine 11/07/20 Allergies Allergy/AdvReac Type Severity Reaction Status Date / Time haloperidol [From Haldol] Allergy Swelling Verified 06/08/21 12:33 of Lip/Tongue/Throat levofloxacin [From Levaquin] Allergy Rash Verified 06/08/21 12:33 hydrocodone AdvReac Unknown Nausea Verified 06/25/21 10:53 metoclopramide AdvReac Unknown Nausea and Verified 06/25/21 10:53 Vomiting nortriptyline AdvReac Unknown Nausea and Verified 06/25/21 10:53 Vomiting Penicillins AdvReac Unknown Nausea Verified 06/25/21 10:53 Sulfa (Sulfonamide AdvReac Unknown Nausea and Verified 06/25/21 10:53 Antibiotics) Vomiting morphine AdvReac Nausea and Verified 06/08/21 12:33 Vomiting Review of Systems Review of Systems: CONSTITUTIONAL: Denies fever, chills, or sweats. EYES: Denies visual changes, redness, or discharge. ENT: Denies rhinorrhea, congestion, sore throat, or otalgia. CARDIOVASCULAR: Denies chest pain, palpitations, or edema. RESPIRATORY: Denies cough or dyspnea. GASTROINTESTINAL: Denies abdominal pain, nausea, vomiting, or diarrhea. GENITOURINARY: Right flank pain. Denies dysuria or hematuria. SKIN: Denies rash or itching. MUSCULOSKELETAL: Right flank pain. Denies joint pain, or myalgia. NEUROLOGIC: Denies headache, numbness, dizziness, or weakness. PSYCHIATRIC: Denies anxiety or depression. [facility] Past Medical History Medical History (Updated 07/20/21 @ 01:40 by Ya Seymour APRN) Abdominal pain Anemia Anxiety Asthma Bipolar disorder Bloody diarrhea Arielle esophagitis Depression Dizziness Headache History of adverse reaction to anesthesia Hypertension IBS (irritable bowel syndrome) Immune deficiency disorder Immunodeficiency disorder, selective immunoglobulin Latex allergy Marijuana abuse Nausea and vomiting in adult Seasonal allergies Stomach pain Ulcerative colitis Weight gain Surgical History Surgical History Hx of cholecystectomy Family History Family History Father Acute myocardial infarction Mother Emphysema lung Chronic obstructive pulmonary disease Bipolar 1 disorder Sibling Selective immunoglobulin deficiency 2 sisters and a brother have it and all three of her children have it. Other Arthritis Diabetes mellitus Heart disease Hypertension Malignant neoplasm Neuropathy Social History Social History Smoking status: Former smoker Tobacco type: cigarettes Second hand tobacco smoke exposure: No Smoking end date: 03/09/13 Alcohol intake: never Substance use: current Substance use type: marijuana Additional living arrangements comments: Lives with Gender identity (if verbalized by the patient): Female Se
[2021-07-20] MEDS: PANTOPRAZOLE SODIUM IV 40 MG VIAL IV PUSH (04:26)
[2021-07-20] MEDS: diphenhydrAMINE HCl INJ 50 MG/ML VIAL 25 MG IV PUSH (04:29)
[2021-07-20] MEDS: PROCHLORPERAZINE EDISYLATE 10 MG/2 ML VIAL IV PUSH (04:34)
[2021-07-20] MEDS: SODIUM CHLORIDE 0.9% IV 1,000 ML 30 ML IV CONT (04:37)
[2021-07-20] MEDS: KCL 20 MEQ/SW 100 ML 100 ML 50 MEQ IVPB (04:37)
[2021-07-20] MEDS: HYDROmorphone HCL INJ (*CRX) 1 MG/ML SYR 0.5 MG IV PUSH (04:56)
[2021-07-20] MEDS: SODIUM CHLORIDE 0.9% IV 100 ML 500 ML (04:59)
== END 2021-07-20 07:29 | disposition home or self-care (01) ==
PROVIDERS: Emergency Medicine; Nurse Practitioner Family; Emergency Provider Emergency Medicine; PCP Nurse Practitioner Family
DX: N12 Tubulo-interstitial nephritis, not specified as acute or chronic (principal); J45.909 Unspecified asthma, uncomplicated; K58.9 Irritable bowel syndrome, unspecified; D84.9 Immunodeficiency, unspecified; Z86.2 Personal history of diseases of the blood and blood-forming organs and certain disorders involving the immune mechanism; Z87.891 Personal history of nicotine dependence; F41.9 Anxiety disorder, unspecified; F32.A Depression, unspecified
CPT/HCPCS: 36415; 74176; 80053; 81001; 81025; 85025; 87086; 87088; 87491; 87591; 96365; 96366; 96367; 96375; 99284; A9270; C9113; J0696; J0780; J1170; J1200; J2405; J3010; J3480; J7030

== ENCOUNTER 2021-08-02 22:34 | Emergency (ER) | payer BC, OTHER, SELFPAY ==
--- NOTE | ~2021-08-02 | CT_ITS ---
EXAMINATION: CT abdomen pelvis wo con DATE: 08/03/2021 01:24 INDICATION: Right flank pain, dysuria. Nausea. TECHNIQUE: Computed tomography (CT) of the abdomen and pelvis was performed without intravenous contr ast. Automated exposure control and iterative reconstruction technique were employed. Exam dose: 275 .96 mGy-cm total exam DLP. COMPARISON: 07/20/2021 CT abdomen pelvis FINDINGS: The lung bases are clear of infiltrate or consolidation. Stable small anterolateral right l ower lobe pulmonary nodule and mild stable discoid scarring in the base of the lateral aspect of the left lower lobe. Normal heart size. No pericardial or pleural effusion. Status post cholecystectomy. The liver, spleen, pancreas, and adrenal glands and kidneys are unremark able. No urinary tract calculus or hydroureteronephrosis. The urinary bladder, uterus and adnexal are as are unremarkable. Normal caliber of the abdominal aorta. No intraperitoneal or retroperitoneal or pelvic mass lesion or adenopathy or ascites. The appendix appears normal. No bowel obstruction or intraperitoneal free air. Included skeletal structures are unremarkable. IMPRESSION: Status post cholecystectomy No urinary tract calculus or hydroureteronephrosis Normal appendix Reviewed, dictated and finalized at Location A. Reviewed, dictated and finalized at location A.
[2021-08-02 23:06] VITALS: BP 99/63; PULSE 82; RESP 18; TEMP 36.4; O2SAT 97
[2021-08-02 23:40] LABS: Mucus Urine Heavy /lpf; Squamous Epithelial Cell Urine Moderate /hpf (Few); WBC Urine 0-3 /hpf
[2021-08-02 23:42] LABS: Add Urine Microscopic? YES; Appearance Urine Clear (Clear); Color Urine Yellow (Yellow)
[2021-08-02 23:43] LABS: Bilirubin Urine 1+ (Negative); Blood Urine Negative (Negative); Glucose Urine UA Negative (Negative); Ketones Urine Negative (Negative); Leukocyte Esterase Ur Negative LEU/UL (Negative); Nitrate Urine Negative (Negative); Protein Urine 1+ mg/dL (Negative)
[2021-08-03 00:23] LABS: Basophils Absolute Auto 0.1 K/mm3 (0.0-0.1); Basophils Percent Auto 0.7 % (0.2-1.2); Eosinophils Absolute Auto 0.2 K/mm3 (0-0.3); Eosinophils Percent Auto 2.5 % (0-4.4); Hematocrit 36.9 % (37.0-47.0); Hemoglobin 11.9 g/dL (12.0-15.0); Lymphocytes Absolute Auto 3.39 K/mm3 (0.9-3.2); Lymphocytes Percent Auto 46.7 % (18.3-44.2); Mean Corpuscular HGB Conc 32.2 g/dl (32-36); Mean Corpuscular Hemoglobin 29.2 pg (26-34); Mean Corpuscular Volume 90.7 fl (80-100); Mean Platelet Volume 10.1 fl (7.4-10.4); Monocytes Absolute Auto 0.6 K/mm3 (0.1-0.6); Monocytes Percent Auto 7.6 % (2.6-8.5); Neutrophils Absolute Auto 3.1 K/mm3 (1.3-6.7); Neutrophils Percent Auto 42.5 % (45.5-73.1); Platelet Count Result 271 k/mm3 (150-375); Red Blood Count 4.07 M/mm3 (4.2-5.4); Red Cell Distribution Width 16.2 % (11.5-14.5); White Blood Count 7.3 K/mm3 (4.5-10.0)
[2021-08-03 00:33] LABS: Anion Gap 4 mmol/L (8-16); Blood Urea Nitrogen 9 mg/dL (7-17); Calcium 8.3 mg/dL (8.4-10.2); Carbon Dioxide 31 mmol/L (22-30); Chloride 104 mmol/L (98-107); Estimated CRCL calculation 110 ml/min; Estimated Glomerular Filt Rate > 60; Glucose 95 mg/dL (65-110); Potassium 3.1 mmol/L (3.4-5.0); Sodium 139 mmol/L (137-145)
[2021-08-03] MEDS: POTASSIUM CHLORIDE 20 MEQ TABLET 40 MEQ PO (01:01)
--- NOTE | 2021-08-03 01:32 | ED.PREGNANCY ---
HPI - General Chief complaint: Urogenital-Female Stated complaint: kidney infection that wont go away Time Seen by Provider: 08/02/21 23:54 Source: patient Mode of arrival: ambulatory Limitations: no limitations History of Present Illness HPI Narrative: This is a 26 year old female that presents to the ER for right flank pain. Ongoing over the last couple of months. Reports the pain is sharp and intermittent. Reports she had some blood in her urine a couple of days ago. Denies fever, vomiting or dysuria. Related Data Home Medications Medication Instructions Recorded Confirmed cariprazine 1.5 mg capsule mg 07/12/20 (Vraylar) quetiapine 200 mg tablet 11/07/20 Allergies Allergy/AdvReac Type Severity Reaction Status Date / Time haloperidol [From Haldol] Allergy Swelling Verified 08/02/21 23:55 of Lip/Tongue/Throat levofloxacin [From Levaquin] Allergy Rash Verified 08/02/21 23:55 hydrocodone AdvReac Unknown Nausea Verified 08/02/21 23:55 metoclopramide AdvReac Unknown Nausea and Verified 08/02/21 23:55 Vomiting nortriptyline AdvReac Unknown Nausea and Verified 08/02/21 23:55 Vomiting Penicillins AdvReac Unknown Nausea Verified 08/02/21 23:55 Sulfa (Sulfonamide AdvReac Unknown Nausea and Verified 08/02/21 23:55 Antibiotics) Vomiting morphine AdvReac Nausea and Verified 08/02/21 23:55 Vomiting Review of Systems Review of Systems: CONSTITUTIONAL: Denies fever GASTROINTESTINAL: Denies abdominal pain, nausea, vomiting, or diarrhea. GENITOURINARY: Denies dysuria All systems reviewed & are unremarkable except as noted in HPI and below PMFSH Past Medical History Medical History (Updated 08/03/21 @ 03:18 by Mary Jane Roblero PA-C) Abdominal pain Anemia Anxiety Asthma Bipolar disorder Bloody diarrhea Arielle esophagitis Depression Dizziness Headache History of adverse reaction to anesthesia Hypertension IBS (irritable bowel syndrome) Immune deficiency disorder Immunodeficiency disorder, selective immunoglobulin Latex allergy Marijuana abuse Nausea and vomiting in adult Seasonal allergies Stomach pain Ulcerative colitis Weight gain Surgical History Surgical History Hx of cholecystectomy Family History Family History Father Acute myocardial infarction Mother Emphysema lung Chronic obstructive pulmonary disease Bipolar 1 disorder Sibling Selective immunoglobulin deficiency 2 sisters and a brother have it and all three of her children have it. Other Arthritis Diabetes mellitus Heart disease Hypertension Malignant neoplasm Neuropathy Social History Social History Smoking status: Former smoker Tobacco type: cigarettes Second hand tobacco smoke exposure: No Smoking end date: 03/09/13 Alcohol intake: never Substance use: current Substance use type: marijuana Additional living arrangements comments: Lives with Gender identity (if verbalized by the patient): Female Sexual Orientation (if Verbalized by the Patient): Straight or Heterosexual Spiritual care concerns: No Exam Narrative: GENERAL: Well-appearing, well-nourished, and in no acute distress. HEAD: Normocephalic, atraumatic. EYES: EOMI. CHEST: Clear to auscultation. No respiratory distress. No wheezes rales or rhonchi HEART: Regular rate and rhythm. No murmur heard. Normal peripheral pulses. ABDOMEN: Soft, nontender, nondistended, normal active bowel sounds. No CVA tenderness EXTREMITIES: Normal range of motion. No edema. SKIN: Warm, dry, no rash. NEURO: No focal deficits. Alert and oriented x3. PSYCH: Normal mood and affect Course Vital Signs Vital signs: Vital Signs Temperature 97.5 F L 08/02/21 23:06 Pulse Rate 82 08/02/21 23:06 Respiratory Rate 18 08/02/21 23:06 Bloo
[2021-08-03 03:59] VITALS: BP 112/60; PULSE 72; RESP 17; O2SAT 98
== END 2021-08-03 03:52 | disposition home or self-care (01) ==
PROVIDERS: Physician Assistant; Emergency Provider Emergency Medicine; PCP Nurse Practitioner Family
DX: R10.9 Unspecified abdominal pain (principal); E87.6 Hypokalemia; D64.9 Anemia, unspecified; J45.909 Unspecified asthma, uncomplicated; I10 Essential (primary) hypertension; K58.9 Irritable bowel syndrome, unspecified; D84.9 Immunodeficiency, unspecified; F41.9 Anxiety disorder, unspecified; F31.9 Bipolar disorder, unspecified; Z87.891 Personal history of nicotine dependence
CPT/HCPCS: 36415; 74176; 80048; 81001; 81025; 85025; 96365; 99284; A9270; J0131

== ENCOUNTER 2021-09-08 15:20 | Emergency (ER) | payer OTHER, SELFPAY ==
--- NOTE | ~2021-09-08 | CT_ITS ---
EXAMINATION: CT abdomen pelvis w con DATE: 09/08/2021 19:41 INDICATION: L sided abd pain TECHNIQUE: Computed tomography (CT) of the abdomen and pelvis was performed with 100 mL Omnipaque-300 intravenous contrast. Automated exposure control and iterative reconstruction technique were employe d. The dose-length product was 206.45 mGy-cm. COMPARISON: 08/03/2021. FINDINGS: Lower thorax: Unremarkable Liver: Likely anterior left lobe cyst or hemangioma. Biliary/Gallbladder: Gallbladder is absent. No bile duct dilation. Pancreas: No mass or duct dilation. Spleen: Normal. Adrenals:No mass. Kidneys: No mass, stone, or hydronephrosis. GI tract: No small or large bowel dilation. Normal appendix. Mesentery/Peritoneum: No ascites, mass, or free air. Retroperitoneum: No mass. Pelvis: Pelvic organs are within normal limits. Soft Tissues: Soft tissues and body wall unremarkable. Bones: No acute osseous finding. IMPRESSION: No acute abdominopelvic process detected. Reviewed, dictated and finalized at location K.
[2021-09-08 15:23] VITALS: BP 117/71; PULSE 113; RESP 16; TEMP 36.6; O2SAT 100
[2021-09-08 15:59] LABS: Basophils Percent Auto 0.6 % (0.2-1.2); Eosinophils Absolute Auto 0.1 K/mm3 (0-0.3); Eosinophils Percent Auto 2.1 % (0-4.4); Hemoglobin 12.7 g/dL (12.0-15.0); Immature Granulocyte Absolute 0.02 K/mm3 (0.00-0.031); Immature Granulocyte Percent A 0.3 % (0-0.5); Lymphocytes Absolute Auto 2.42 K/mm3 (0.9-3.2); Lymphocytes Percent Auto 36.6 % (18.3-44.2); Mean Corpuscular HGB Conc 33.4 g/dl (32-36); Mean Corpuscular Hemoglobin 28.7 pg (26-34); Mean Corpuscular Volume 85.8 fl (80-100); Mean Platelet Volume 10.3 fl (7.4-10.4); Monocytes Absolute Auto 0.5 K/mm3 (0.1-0.6); Monocytes Percent Auto 7.3 % (2.6-8.5); Neutrophils Absolute Auto 3.5 K/mm3 (1.3-6.7); Neutrophils Percent Auto 53.1 % (45.5-73.1); Platelet Count Result 254 k/mm3 (150-375); Red Blood Count 4.43 M/mm3 (4.2-5.4); Red Cell Distribution Width 15.9 % (11.5-14.5); White Blood Count 6.6 K/mm3 (4.5-10.0)
[2021-09-08] MEDS: ONDANSETRON INJ 4 MG/2 ML VIAL IV PUSH (16:07)
[2021-09-08] MEDS: SODIUM CHLORIDE 0.9% IV 1,000 ML 999 ML IV CONT ×2 (16:07→17:01)
--- NOTE | 2021-09-08 16:24 | ED.NAVMDI ---
HPI - Nausea/Vomiting/Diarrhea General Chief complaint: Nausea/Vomiting/Diarrhea Stated complaint: N/V Time Seen by Provider: 09/08/21 15:32 Source: patient History of Present Illness HPI Narrative: Patient presents with nausea vomiting and abdominal pain. Reports she had issues on and off for years but has been more significant over the past several months. She reports her travels a lot for work and to start a new job where they now have insurance so she has not previously been evaluated for this. Does have a referral to GI to further evaluate her symptoms and has not been able to make an appointment yet. She also reports she was recently is from a mental health institution and was told that maybe she has bulimia. She came today because she is having hard time keeping anything down. Also never she eats or drinks anything she gets really nauseous and throws up. Patient reports her emesis looks like stomach acid and whenever she attempted to eat. She denies any blood. She also has been previously that maybe she has ulcerative colitis. Her abdominal pain is primarily on her left abdomen radiates down to her lower abdomen. Is achy, constant, worse with eating or drinking Related Data Home Medications Medication Instructions Recorded Confirmed cariprazine 1.5 mg capsule mg 07/12/20 (Vraylar) quetiapine 200 mg tablet 11/07/20 Allergies Allergy/AdvReac Type Severity Reaction Status Date / Time haloperidol [From Haldol] Allergy Swelling Verified 08/02/21 23:55 of Lip/Tongue/Throat levofloxacin [From Levaquin] Allergy Rash Verified 08/02/21 23:55 NSAIDS (Non-Steroidal Allergy Other Verified 09/08/21 17:02 Anti-Inflamma hydrocodone AdvReac Unknown Nausea Verified 08/02/21 23:55 metoclopramide AdvReac Unknown Nausea and Verified 08/02/21 23:55 Vomiting nortriptyline AdvReac Unknown Nausea and Verified 08/02/21 23:55 Vomiting Penicillins AdvReac Unknown Nausea Verified 08/02/21 23:55 Sulfa (Sulfonamide AdvReac Unknown Nausea and Verified 08/02/21 23:55 Antibiotics) Vomiting morphine AdvReac Nausea and Verified 08/02/21 23:55 Vomiting Review of Systems Review of Systems: CONSTITUTIONAL: Denies fever, chills, or sweats. EYES: Denies visual changes, redness, or discharge. ENT: Denies rhinorrhea, congestion, sore throat, or otalgia. CARDIOVASCULAR: Denies chest pain, palpitations, or edema. RESPIRATORY: Denies cough or dyspnea. GASTROINTESTINAL: Abdominal pain with nausea vomiting GENITOURINARY: Denies dysuria or hematuria. SKIN: Denies rash or itching. MUSCULOSKELETAL: Denies back pain, joint pain, or myalgia. NEUROLOGIC: Denies headache, numbness, dizziness, or weakness. PSYCHIATRIC: Denies anxiety or depression. All systems reviewed & are unremarkable except as noted in HPI and below PMFSH Past Medical History Medical History (Updated 09/08/21 @ 20:10 by Linwood Fonseca MD) Abdominal pain Anemia Anxiety Asthma Bipolar disorder Bloody diarrhea Arielle esophagitis Depression Dizziness Headache History of adverse reaction to anesthesia Hypertension IBS (irritable bowel syndrome) Immune deficiency disorder Immunodeficiency disorder, selective immunoglobulin Latex allergy Marijuana abuse Nausea and vomiting in adult Seasonal allergies Stomach pain Ulcerative colitis Weight gain Surgical History Surgical History Hx of cholecystectomy Family History Family History Father Acute myocardial infarction Mother Emphysema lung Chronic obstructive pulmonary disease Bipolar 1 disorder Sibling Selective immunoglobulin deficiency 2 sisters and a brother have it and all three of her children have it. Other Arthritis Diabetes mellitus Heart disease Hypertension Malignant neoplasm Neuropathy Social History Social History (Reviewed
[2021-09-08 16:34] LABS: Alanine Aminotransferase 14 U/L (6-35); Albumin Level 3.6 g/dL (3.5-5.1); Alkaline Phosphatase 56 U/L (38-126); Anion Gap 7 mmol/L (8-16); Aspartate Amino Transferase 18 U/L (14-36); Bilirubin,Total 0.2 mg/dL (0.2-1.3); Blood Urea Nitrogen 10 mg/dL (7-17); Calcium 8.6 mg/dL (8.4-10.2); Carbon Dioxide 28 mmol/L (22-30); Chloride 104 mmol/L (98-107); Estimated CRCL calculation 96 ml/min; Estimated Glomerular Filt Rate > 60; Glucose 123 mg/dL (65-110); Lipase 42 U/L (23-300); Potassium 2.8 mmol/L (3.4-5.0); Sodium 139 mmol/L (137-145)
[2021-09-08] MEDS: KCL 20 MEQ/SW 100 ML 100 ML 50 MEQ IVPB (17:01)
[2021-09-08 17:50] VITALS: BP 122/76; PULSE 94; RESP 14; O2SAT 99
[2021-09-08] MEDS: PROCHLORPERAZINE EDISYLATE 10 MG/2 ML VIAL IV PUSH (17:54)
[2021-09-08 19:29] LABS: Appearance Urine Clear (Clear); Bilirubin Urine 1+ (Negative); Blood Urine Negative (Negative); Color Urine Yellow (Yellow); Glucose Urine UA Negative (Negative); Ketones Urine Negative (Negative); Leukocyte Esterase Ur Negative LEU/UL (Negative); Nitrate Urine Negative (Negative); Protein Urine 1+ mg/dL (Negative)
[2021-09-08 19:32] LABS: Add Urine Microscopic? YES; Mucus Urine Heavy /lpf; Squamous Epithelial Cell Urine Many /hpf (Few)
[2021-09-08 20:19] VITALS: BP 139/74; PULSE 86; RESP 14; O2SAT 98
== END 2021-09-08 20:27 | disposition home or self-care (01) ==
PROVIDERS: Emergency Provider Emergency Medicine
DX: E87.6 Hypokalemia (principal); R10.12 Left upper quadrant pain; R11.2 Nausea with vomiting, unspecified; I10 Essential (primary) hypertension; J45.909 Unspecified asthma, uncomplicated; D84.9 Immunodeficiency, unspecified; K58.9 Irritable bowel syndrome, unspecified; F41.9 Anxiety disorder, unspecified; F31.9 Bipolar disorder, unspecified; Z86.2 Personal history of diseases of the blood and blood-forming organs and certain disorders involving the immune mechanism; Z87.891 Personal history of nicotine dependence
CPT/HCPCS: 36415; 74177; 80053; 81001; 83690; 85025; 96361; 96365; 96366; 96368; 96375; 99284; J0131; J0780; J1885; J2405; J3480; J7030; Q9967